=== PATIENT | male | born 1955 | race Caucasian/White ===

== ENCOUNTER 2020-12-28 05:15 | Emergency (ER) | payer MEDICARE, SELFPAY ==
[2020-08-02 10:10] VITALS: BMI 21.3
[2020-12-28 05:16] VITALS: BP 165/89; PULSE 150; RESP 16; TEMP 36.7; O2SAT 92; BMI 21.5
--- NOTE | 2020-12-28 05:19 | CT_ITS ---
STUDY: CT ABDOMEN AND PELVIS WITHOUT CONTRAST REASON FOR EXAM: Male, 65 years old. Kidney Stone RADIATION DOSAGE (If Supplied By Facility): CTDIvol = ( 6.09 ) mGy, DLP = ( 279.88 ) mGycm TECHNIQUE: Transaxial 2.5 mm images were obtained from the dome of the diaphragm to the symphysis pubis without oral contrast, and without intravenous contrast. Sagittal and coronal images were reconstructed. This examination is limited for the evaluation of gastrointestinal, solid organs and vascular structures due to the lack of intravenous and oral contrast. Individualized dose optimization techniques were used for this CT. COMPARISON: None. FINDINGS: There is hyperinflation of lung bases, minimal scarring in the posterior medial right lower lobe. The visualized portions of the heart are within normal limits. Normal liver. Normal gallbladder and extrahepatic biliary system. Normal spleen. Normal pancreas. Normal bilateral adrenal glands. Mild bilateral perirenal stranding, right upper renal pole cortical thinning likely scarring. There is no obstructive uropathy, obstructive renal or ureteral calculi. Normal visualized stomach. Normal small intestine. There are rare colonic diverticula consistent with diverticulosis. The appendix is visualized and appears normal. There is atherosclerosis of the abdominal aorta, greater branches and pelvic arteries without aneurysm or leak. Normal inferior vena cava. Normal retroperitoneum. Minimally indistinct into of the urinary bladder without overt wall thickening, urinary bladder is not completely distended. Urinary bladder. There is enlargement of the prostate gland. There is a left-sided inguinal hernia containing adipose tissue. There is mild concave deformity along the superior endplate L5 L1, T12, T11 of less than 50% without retropulsion of cortex, probable Schmorl''s node along the superior endplate of the lower thoracic spine. No acute fracture lines detected. There is mild demineralization of osseous structures. CT/Abdomen/Pelvis without Cont IMPRESSION: There is no obstructive uropathy, obstructive renal or ureteral calculi. Perirenal stranding is nonspecific and can be seen with previous pathology. Urinary bladder indistinct contour likely secondary to incomplete distention and prostate enlargement. No calculus or focal mass detected on noncontrast imaging. Osteopenia is suspected, correlation with bone mineral density if not previously performed recommended. Right renal cortical thinning, atherosclerosis, degenerative changes, mild loss of vertebral body height, possible osteopenia and rare colonic diverticula felt to be known acute findings. Electronically Signed: Swetha Cat MD at 6:18 EST , Service support ,
--- NOTE | 2020-12-28 05:20 | EKG12_ITS ---
Test Reason : FLANK PAIN Blood Pressure : / mmHG Vent. Rate : 117 BPM Atrial Rate : 117 BPM P-R Int : 188 ms QRS Dur : 070 ms QT Int : 302 ms P-R-T Axes : 075 095 070 degrees QTc Int : 421 ms Sinus tachycardia Rightward axis Borderline ECG Confirmed by ESHA CH, BRAD ([id number]), research editor BLANCO HOLLIS ([id number]) on 01/01/2021 11:02:39 A M Referred By: YON Confirmed By:SHERMAN BALBUENA MD
--- NOTE | 2020-12-28 05:21 | ED.DCSUM_ITS ---
- ER Visit Summary Date of Service: 12/28/20 Chief Complaint: Right flank pain History of Present Illness: The patient is a 65 M who presents with right flank pain. Started yesterday and gradually got worse throughout the evening. He states he could not sleep because of the pain. The pain is sharp and in the right flank area and right lower back. Nothing makes the pain better or worse. He denies any hematuria. No history of kidney stones. He denies any falls or injury. He took no pain medications for this at home. He states that he is currently on Flomax and has been on Flomax for quite a while. He does have a history of very severe COPD and is on home oxygen at 3 L. He denies any new s hortness of breath. No chest pain. Physical Examination: Vital signs reviewed. HEENT exam unremarkable. Heart is tachycardic and regular rhythm without murmurs. Lungs are clear to auscultation. Abdomen is soft and nontender. His back is nontender. There is no CVA tenderness. Extremities reveal no edema. Skin exam normal. Neurologic exam normal. Test Results: EKG is sinus rhythm with a rate of 117. No ST changes. Laboratory studies are unremarkable except for glucose of 114. Urinalysis reveals no evidence of infection. There is 0-5 red blood cells. CAT scan of the abdomen pelvis shows no obstructive uropathy. There is some perirenal stranding which is nonspecific. The bladder has a indistinct contour likely secondary to incomplete distention and prostate enlargement. He does have osteopenia and other chronic findings as well. Emergency Department Course and Treatment: The patient was given morphine and normal saline. He was still complaining of some pain so I did give him a Lidoderm patch to place on this area. This pain could be musculoskeletal in nature. I do not see any urologic causes. He is not retaining urine and he is emptying his bladder as he urinated spontaneously in the emergency department. There are no skin changes and it does not appear to be shingles. At this point I will discharge the patient with Lidoderm patches. He will continue Tylenol at home as well. He will call his doctor today for follow-up Treatment Plan: [] Disposition: Discharge Impression: Right lower back pain This note was generated with [employer] software. It may contain incorrect words, spelling, and punctuation that were not noted in review of the chart prior to signing ED Disposition - Plan for ED Patient: Disposition: Home or Assisted Living Instructions: ED Flank Pain, Uncertain Cause Prescriptions: Lidocaine [Lidoderm Patch] 1 patch TOPICAL DAILY #10 patch Transmission Status: Pending to [facility]/pharmacy #[id number] Referrals: Caroline Tejeda PA [Primary Care Provider] -
[2020-12-28 05:30] LABS: Absolute Lymphocyte Count 1.58 X10^3/uL (0.83-4.51); Basophil# 0.05 X10^3/uL; Basophil% 0.5 % (0-1); Eosinophil# 0.05 X10^3/uL; Eosinophils% 0.5 % (0-5); Hematocrit 41.5 % (40-54); Hemoglobin 13.7 g/dL (13.0-16.5); Lymphocyte # 1.58 X10^3/ul (4.0); Lymphocyte % 16.9 % (19-41); Mean Corpuscular Hgb 32.5 pg (27.0-32.0); Mean Corpuscular Volume 98.6 fL (80-94); Mean Platelet Vol. 8.3 fl (6.2-12.0); Monocyte# 1.61 X10^3/uL; Monocyte% 17.2 % (0-10); NRBC Flagged by Analyzer 0 % (0-5); Neutrophil % 64.4 % (47-70); POSITIVE DIFFERENTIAL YES; Platelet Count 389 K/mm3 (150-450); RBC Distribution Width CV 12.7 % (11.6-14.6); Red Blood Count 4.21 M/mm3 (4.6-6.2); White Blood Count 9.3 K/mm3 (4.4-11.0)
[2020-12-28 05:33] LABS: Differential Indicated SCAN CRITERIA MET
[2020-12-28] MEDS: Ondansetron 4 MG/2 ML Vial IV (05:37)
[2020-12-28] MEDS: Morphine 4 MG/ML Syringe IV (05:38)
[2020-12-28] MEDS: 0.9% Normal Saline 1,000 ML 250 ML IV (05:40)
[2020-12-28 05:45] LABS: Anion Gap 6 (5-15); BUN 11 mg/dL (7-18); BUN/Creat Ratio 13.6 RATIO (10-20); Calcium,Total 9.5 mg/dL (8.5-10.1); Chloride 103 mmol/L (98-107); Creatinine, Serum 0.81 mg/dL (0.70-1.30); EST Glomerular Filtration Rate 101 mL/min (>60); Est Glom Filt Rate - Afr Amer 123 mL/min (>60); Estimated Creatinine Clearance 76.77 ml/min; Glucose 114 mg/dL (74-106); Potassium 3.8 mmol/L (3.5-5.1); Sodium Level 138 mmol/L (136-145)
[2020-12-28 05:48] LABS: Bacteria 0 SEEN /hpf (None Seen); Color, Urine Yellow (Yellow); Glucose, Dipstick Normal (Normal); Ketone-Dipstick 15 mg/dl (Negative); Leukocyte Esterase-Dipstick Negative /ul (Negative); Mucous, Urine 0 SEEN /hpf (<or=2+); Nitrite-Dipstick Negative (Negative); Occult Blood-Urine 50 /ul (Negative); Protein-Dipstick 15 mg/dl (Negative); Squamous Epithelial Cells - UA 0 SEEN /hpf (0-5); Urine Bilirubin Dipstick Negative (Negative); Urine Clarity Clear (Clear); Urine Urobilinogen Normal (Normal); White Blood Cells 0 SEEN /hpf (0-5)
[2020-12-28 06:05] LABS: Red Blood Cells-Urine 0-5 SEEN /hpf (0-5)
[2020-12-28] MEDS: Lidocaine 5% Patch 1 PATCH TOPICAL (06:47)
[2020-12-28 06:50] VITALS: BP 142/91; PULSE 80; RESP 18; O2SAT 96
== END 2020-12-28 06:53 | disposition home or self-care (01) ==
PROVIDERS: Emergency Provider Emergency Medicine; PCP Physician Assistant
DX: M54.5 Low back pain (principal); J44.9 Chronic obstructive pulmonary disease, unspecified; Z99.81 Dependence on supplemental oxygen; Z79.82 Long term (current) use of aspirin
CPT/HCPCS: 74176; 80048; 81001; 85025; 93005; 96374; 96375; 99283; J7030; A4216; J2405

== ENCOUNTER 2022-10-27 11:11 | Inpatient (IN) | payer MEDICARE, MEDICAID, SELFPAY ==
[2022-10-27] VITALS (18 sets, daily range): BP systolic 119–147; BP diastolic 65–90; PULSE 73–143; RESP 18–31; TEMP 35.9–37.3; O2SAT 92–100; BMI 20.1
--- NOTE | 2022-10-27 11:38 | EKG12_ITS ---
Test Reason : SOB Blood Pressure : / mmHG Vent. Rate : 121 BPM Atrial Rate : 000 BPM P-R Int : 000 ms QRS Dur : 070 ms QT Int : 274 ms P-R-T Axes : 000 085 065 degrees QTc Int : 389 ms Sinus rhythm with frequent PAC's Abnormal ECG Confirmed by ANSELMO CH, DIMITRY ([id number]), business editor BLANCO HOLLIS ([id number]) on 10/28/2022 1:56:55 PM Referred By: Confirmed By:DIMITRY BRIONES MD
--- NOTE | 2022-10-27 11:38 | RAD_ITS ---
EXAM: XR CHEST, 1 VIEW CLINICAL INDICATION: chest pain TECHNIQUE: Frontal view of the chest. This report was created using [employer] report generation technology. COMPARISON: XR Chest dated 03/28/2017 FINDINGS: LUNGS AND PLEURAL SPACES: Hyperinflation suggesting emphysema. A 6 cm masslike density noted within the left lung apex consistent with neoplasm. No pneumothorax. No effusion. HEART: Normal heart size. MEDIASTINUM: Left side of the superior mediastinum appears thickened raising possibility of mediastinal lymphadenopathy. BONES/JOINTS: Old right clavicular and rib fractures. SOFT TISSUES: Normal. RAD/Chest 1 View (Portable) IMPRESSION: 6 cm left apical lung mass suggestive of neoplasm. Suspect mediastinal involvement. COPD. Follow-up CT chest recommended. Electronically Signed: Kyree Khan MD at 12:15 EST ,
[2022-10-27 11:45] LABS: Absolute Lymphocyte Count 0.62 X10^3/uL (0.83-4.51); Absolute Neutrophil Count 9.2 X10^3/uL (2.0-7.7); Basophil# 0.02 X10^3/uL; Basophil% 0.2 % (0-1); Eosinophil# 0.03 X10^3/uL; Eosinophils% 0.3 % (0-5); Hematocrit 34.7 % (40-54); Lymphocyte # 0.62 X10^3/ul (0.83-4.51); Lymphocyte % 5.8 % (19-41); Mean Corp Hgb Conc 31.7 g/dL (32-36); Mean Corpuscular Hgb 31.3 pg (27.0-32.0); Mean Corpuscular Volume 98.9 fL (80-94); Mean Platelet Vol. 9.5 fl (6.2-12.0); Monocyte# 0.89 X10^3/uL; Monocyte% 8.3 % (0-10); NRBC Flagged by Analyzer 0 % (0-5); Neutrophil # 9.16 X10^3/uL (2.7-7.7); Neutrophil % 84.9 % (47-70); Platelet Count 363 K/mm3 (150-450); RBC Distribution Width CV 13.2 % (11.6-14.6); RBC Distribution Width SD 46.9 fl (35.1-43.9); Red Blood Count 3.51 M/mm3 (4.6-6.2); White Blood Count 10.8 K/mm3 (4.4-11.0)
--- NOTE | 2022-10-27 11:53 | EDS_ITS ---
HPI History of Present Illness Chief Complaint: Shortness of Breath Narrative Narrative: 67-year-old male presenting with shortness of breath for the last 2 to 3 days. He does state that he has a pulse oximeter at home which is also reading that his heart was racing in the 120s. He has intermittent aching of the chest which is central. No nausea, diaphoresis, lightheadedness with this. He states he does not radiate. He denies fever, chills, cough. He denies body aches. He does admit to a history of COPD. [facility] Medical History Acute exacerbation of chronic obstructive pulmonary disease Acute on chronic respiratory failure with hypoxemia Acute respiratory failure with hypoxemia BPH (benign prostatic hypertrophy) Bronchitis COPD (chronic obstructive pulmonary disease) Cough Dehydration Emphysema lung End stage chronic obstructive pulmonary disease History of alcohol abuse History of tobacco use Hyponatremia Parainfluenza infection Shortness of breath Stage 4 very severe COPD by GOLD classification Throat irritation Tobacco dependence Wheezing Home Medications aspirin 81 mg tablet,delayed release (Adult Low Dose Aspirin) 81 mg PO DAILY 08/02/20 [History Last Taken Unknown] metoprolol tartrate 50 mg tablet (Lopressor) 50 mg PO DAILY 08/02/20 [History Last Taken Unknown] tamsulosin 0.4 mg capsule (Flomax) 0.4 mg PO DAILY 08/02/20 [History Last Taken Unknown] roflumilast 500 mcg tablet (Daliresp) 500 mcg PO DAILY #90 tabs 07/31/21 [Rx Last Taken Unknown] Handicap Placard #1 ea 07/25/22 [Rx Last Taken Unknown] azithromycin 250 mg tablet 250 mg PO .COMPLEX #36 tabs 07/25/22 [Rx Last Taken Unknown] fluticasone furoate 200 mcg-vilanterol 25 mcg/dose inhalation powder (Breo Ellipta) 1 inh inhalation DAILY #3 ea 07/25/22 [Rx Last Taken Unknown] tiotropium bromide 2.5 mcg/actuation mist for inhalation (Spiriva Respimat) 2 puff inhalation QDAY #3 ea 07/25/22 [Rx Last Taken Unknown] albuterol sulfate 90 mcg/actuation aerosol inhaler (Ventolin HFA) 2 puff inhalation Q6H R06.02 J44.1 #18 grams 07/29/22 [Rx Last Taken Unknown] prednisone 10 mg tablet 10 mg PO QDAY #90 tabs 07/30/22 [Rx Last Taken Unknown] albuterol sulfate 1.25 mg/3 mL solution for nebulization 1.25 mg (3 mL) inhalation Q4H #600 mL 08/29/22 [Rx Last Taken Unknown] Allergy/AdvReac Type Severity Reaction Status Date / Time No Known Allergies Allergy Verified 10/27/22 11:15 Family History (Reviewed 07/25/22 @ 09:17 by Delilah Benoit GERIATRIC NURSE PRACTITIONER, GERIATRIC NURSE PRACTITIONER-C) Mother Diabetes Father Lung cancer Surgical History S/P aneurysm repair Social History (Reviewed 07/25/22 @ 09:17 by Delilah Benoit GERIATRIC NURSE PRACTITIONER, GERIATRIC NURSE PRACTITIONER-C) Smoking Status: Former smoker quit date: 10/20/16 pack-years: 43 second hand exposure: Yes alcohol intake: never substance use type: does not use EXAM Physical Exam Const Vital Signs: 10/27/22 11:13 10/27/22 11:15 10/27/22 11:24 Temperature 96.7 F L 99.1 F Temperature Source Temporal Temporal Pulse Rate 74 89 Respiratory Rate 20 H 22 H Respiratory Effort Short of Breath Labored Respiratory Depth Normal Respiratory Pattern Tachypnea Blood Pressure 132/90 H Blood Pressure Mean 104 Pulse Ox 92 100 Oxygen Delivery Method Nasal Cannula Nasal Cannula Nasal Cannula Oxygen Flow Rate (L/min) 3 3 3 10/27/22 11:38 10/27/22 12:18 10/27/22 12:15 Temperature 98.1 F Temperature Source Temporal Pulse Rate 73 98 Respiratory Rate 28 H 28 H Respiratory Effort Respiratory Depth Respiratory Pattern Hyperpnea Blood Pressure 119/81 H Blood Pressure Mean 93 Pulse Ox 99 100 Oxygen Delivery Method Nasal Cannula Nasal Cannula Oxygen Flow Rate (L/min) 3 3 10/27/22 13:00 Temperature 97.9 F Temperature Source Temporal Pulse Rate 98 Respiratory Rate 30 H Respiratory Effort Respiratory Depth Respiratory Pattern Blood Pressure 140/76 H Blood Pressure Mean 97 Pulse Ox 100 Oxygen Delivery Method Nasal Cannula Oxygen Flow Rate (L/min) 3 MDM MDM MDM Narrative Medical decision making narrative: Patient presenting with chest pain which is intermittent. He describes as an ache. He states that at times it will last about 10 minutes. He also notes that his heart rate has been very fast at home. He states been in the 120s. He does complain of some shortness of breath and was wheezing on examination. He was given Solu-Medrol and breathing treatments. EKG was obtained which on my interpretation shows atrial fibrillation with a ventricular rate of 121 bpm. He was given 20 mg of Cardizem IV. after discussing this with the patient it does not appear he has had this before. The patient is actually feeling improved after treatments and Cardizem. Patient's heart rate is now in the 70s. He is not on any anticoagulation. CBC shows a normal white blood cell count 10.8. Hemoglobin 11.0. Platelets 363. Renal function electrolytes within normal limits. Glucose slightly elevated at 144 without anion gap. High-sensitivity troponin is 13. Chest x-ray on my interpretation shows concern for left upper lobe mass. The radiologist represents and agrees and also suspects mediastinal involvement. Feel the patient will need to stay for new onset atrial fibrillation. I did speak with the hospitalist and since his D-dimer is negative she would like to have a noncontrasted CT of his chest. This was ordered and is pending. She will be followed up by hospitalist. Impression: 1. 6 severe left upper lobe mass 2. COPD exacerbation 3. New onset atrial fibrillation 4. Chest pain Lab Data Attestation: I reviewed the patient's lab results. Labs: Laboratory Results - last 24 hr 10/27/22 10/27/22 10/27/22 11:35 11:35 11:35 WBC 10.8 RBC 3.51 L Hgb 11.0 L Hct 34.7 L MCV 98.9 H MCH 31.3 MCHC 31.7 L RDW Std Deviation 46.9 H RDW Coeff of Fe 13.2 Plt Count 363 MPV 9.5 Immature Gran % (Auto) 0.500 Neut % (Auto) 84.9 H Lymph % (Auto) 5.8 L [place] % (Auto) 8.3 Eos % (Auto) 0.3 Baso % (Auto) 0.2 Absolute Neuts (auto) 9.2 H Absolute Lymphs (auto) 0.62 L Nucleated RBC % 0 D-Dimer Quant (PE/DVT) 0.37 Sodium 139 Potassium 3.8 Chloride 104 Carbon Dioxide 31.0 Anion Gap 4 L BUN 13 Creatinine 0.80 Estim Creat Clear Calc 70.87 Est GFR (MDRD) Af Amer 124 Est GFR (MDRD) Non-Af 102 BUN/Creatinine Ratio 16.2 Glucose 144 H Calcium 9.5 Troponin I High Sens 13 Radiography Diagnostic Testing: Clinical Impression(s) from Imaging Studies Chest X-Ray 10/27/22 11:38 IMPRESSION: 6 cm left apical lung mass suggestive of neoplasm. Suspect mediastinal involvement. COPD. Follow-up CT chest recommended. Electronically Signed: Kyree Khan MD at 12:15 EST , Discharge Plan Triage Chief Complaint: Shortness of Breath ED Provider: Diego Owen Dx/Rx/DC Orders Prescriptions: No Action metoprolol tartrate [Lopressor] 50 mg tablet 50 mg PO DAILY tamsulosin [Flomax] 0.4 mg capsule 0.4 mg PO DAILY aspirin [Adult Low Dose Aspirin] 81 mg tablet,delayed release (DR/EC) 81 mg PO DAILY Daliresp 500 mcg tablet 500 mcg PO DAILY Qty: 90 3RF (DME) Handicap Placard Qty: 1 0RF Rx Instructions: expires 07/25/2027 Breo Ellipta 200-25 mcg/dose blister with device 1 inh inhalation DAILY Qty: 3 3RF Spiriva Respimat 2.5 mcg/actuation mist 2 puff INHALATION QDAY Qty: 3 3RF azithromycin 250 mg tablet 250 mg PO .COMPLEX Qty: 36 6RF Rx Instructions: 250 mg PO three times weekly, Fri albuterol sulfate [Ventolin HFA] 90 mcg/actuation HFA aerosol inhaler 2 puff INHALATION Q6H Qty: 18 6RF Rx Instructions: R06.02 J44.1 prednisone 10 mg tablet 10 mg PO QDAY Qty: 90 3RF albuterol sulfate 1.25 mg/3 mL solution for nebulization 1.25 mg inhalation Q4H Qty: 600 3RF Rx Instructions: J44.9 COPD R06.02 Shortness of Breath Primary Care Provider: Caroline Tejeda Referrals: Caroline Tejeda PA [Primary Care Provider] -
[2022-10-27 12:04] LABS: Anion Gap 4 (5-15); BUN 13 mg/dL (7-18); BUN/Creat Ratio 16.2 RATIO (10-20); Calcium,Total 9.5 mg/dL (8.5-10.1); Chloride 104 mmol/L (98-107); EST Glomerular Filtration Rate 102 mL/min (>60); Est Glom Filt Rate - Afr Amer 124 mL/min (>60); Estimated Creatinine Clearance 70.87 ml/min; Glucose 144 mg/dL (74-106); Potassium 3.8 mmol/L (3.5-5.1); Sodium Level 139 mmol/L (136-145); Troponin-I HS (w/2H Reflex) 13 pg/mL (3.0-78.0)
[2022-10-27] MEDS: Albuterol 2.5 MG/3 ML VIAL.NEB. INHALATION (12:19)
[2022-10-27] MEDS: Ipratropium/Albuterol Sulfate 3 ML AMPUL.NEB INHALATION ×2 (12:19→19:46)
[2022-10-27 12:48] LABS: D-Dimer Quantitative (DVT/PE) 0.37 FEU/ug/m (0.27-0.49)
[2022-10-27] MEDS: dilTIAZem 25 MG/5 ML Vial 20 MG IV BOLUS (12:56)
[2022-10-27] MEDS: MethylPREDNISolone 125 MG/2 ML Vial IV (12:56)
[2022-10-27 13:42] LABS: Reflex Troponin-HS? (from REC) Y
--- NOTE | 2022-10-27 13:44 | CT_ITS ---
EXAM: CT CHEST WITHOUT INTRAVENOUS CONTRAST CLINICAL INDICATION: chest pain TECHNIQUE: Helically acquired images were obtained of the chest without intravenous contrast. This CT exam was performed using one or more of the following dose reduction techniques: automated exposure control, adjustment of the mA and/or kV according to patient size, and/or use of iterative reconstruction technique. This report was created using [employer] report generation technology. COMPARISON: Chest radiograph 10/27/2022 FINDINGS: LUNGS AND PLEURAL SPACES: 5.0 x 4.2 cm mass within the anteromedial portion of the left upper lobe with spiculated borders consistent with primary lung neoplasm. Diffuse centrilobular pulmonary emphysema. No pleural effusion or thickening. No pneumothorax. HEART: Normal heart size. Moderate coronary artery calcification. Small pericardial effusion/thickening noted. MEDIASTINUM: No mediastinal or hilar lymphadenopathy. Esophagus is unremarkable. No hiatal hernia. THYROID: Normal. No thyroid lesions. BONES/JOINTS: Normal. No suspicious lytic or blastic abnormality. VASCULATURE: Normal. Thoracic aorta is non-dilated. CT/Chest without Contrast IMPRESSION: 1. 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 2. No evidence of metastatic disease. 3. Prominent diffuse pulmonary emphysema. Electronically Signed: Kyree Khan MD at 14:36 EST ,
--- NOTE | 2022-10-27 14:33 | HP.PCM.HOS_ITS ---
HPI - General General Date of Admission: 10/27/22 Date of Service: 10/27/22 Chief Complaint: Shortness of breath/tachycardia HPI Narrative PAOLO JAUREGUI, is a 67 M who presented to the emergency department at [facility] on 10/27/2022 complaining of shortness of breath. Patient states he had increased shortness of breath for about 2 to 3 days and he also complained of feeling like he had mucous plugging in his trachea that was preventing him from breathing well. He has a pulse oximeter at home and checked his pulse ox and noted that his heart was racing and that 120s. He complained of intermittent aching in his chest which was central in nature. He had no nausea, vomiting, diaphoresis, lightheadedness or radiation of symptoms. He denies fever, chills, cough other than his chronic cough related to his COPD. Patient does wear 3 L of oxygen at baseline. He follows with Dr. Hernández from [place] as an outpatient. Vital signs at the time of presentation demonstrated a temperature of 99.1, heart rate 89, blood pressure was 132/90, respiratory rate was 22 and pulse ox was 100% on 3 L nasal cannula. His CBC shows a mild anemia with a hemoglobin of 11 but was otherwise unremarkable other than a left shift with an 84.9% neutrophilia. His D-dimer was normal. Chemistry panel was unremarkable. Troponin was 13 with a delta of 13. EKG showed atrial fibrillation with a rapid rate, normal intervals, and no ST-T wave changes consistent with acute ischemia. Chest x-ray was performed and showed a 6 cm left apical lung mass that was suggestive of neoplasm with suspected mediastinal involvement. We obtained a CT of his chest which demonstrated a 5.0 x 4.2 cm left upper lobe lung mass with spiculated borders consistent with a primary lung carcinoma, no evidence of metastatic disease and prominent diffuse pulmonary emphysematous changes. He did not have any mediastinal or hilar lymphadenopathy. In the emergency department he was given Cardizem 20 mg x 1 dose and his heart rate did improve. [facility]LY [facility] Medical History Acute exacerbation of chronic obstructive pulmonary disease Acute on chronic respiratory failure with hypoxemia Acute respiratory failure with hypoxemia BPH (benign prostatic hypertrophy) Bronchitis COPD (chronic obstructive pulmonary disease) Cough Dehydration Emphysema lung End stage chronic obstructive pulmonary disease History of alcohol abuse History of tobacco use Hyponatremia Parainfluenza infection Shortness of breath Stage 4 very severe COPD by GOLD classification Throat irritation Tobacco dependence Wheezing Home Medications aspirin 81 mg tablet,delayed release (Adult Low Dose Aspirin) 81 mg PO DAILY 08/02/20 [History Last Taken Unknown] metoprolol tartrate 50 mg tablet (Lopressor) 50 mg PO DAILY 08/02/20 [History Last Taken Unknown] tamsulosin 0.4 mg capsule (Flomax) 0.4 mg PO DAILY 08/02/20 [History Last Taken Unknown] roflumilast 500 mcg tablet (Daliresp) 500 mcg PO DAILY #90 tabs 07/31/21 [Rx Last Taken Unknown] Handicap Placard #1 ea 07/25/22 [Rx Last Taken Unknown] azithromycin 250 mg tablet 250 mg PO .COMPLEX #36 tabs 07/25/22 [Rx Last Taken Unknown] fluticasone furoate 200 mcg-vilanterol 25 mcg/dose inhalation powder (Breo Ellipta) 1 inh inhalation DAILY #3 ea 07/25/22 [Rx Last Taken Unknown] tiotropium bromide 2.5 mcg/actuation mist for inhalation (Spiriva Respimat) 2 puff inhalation QDAY #3 ea 07/25/22 [Rx Last Taken Unknown] albuterol sulfate 90 mcg/actuation aerosol inhaler (Ventolin HFA) 2 puff inhalation Q6H R06.02 J44.1 #18 grams 07/29/22 [Rx Last Taken Unknown] prednisone 10 mg tablet 10 mg PO QDAY #90 tabs 07/30/22 [Rx Last Taken Unknown] albuterol sulfate 1.25 mg/3 mL solution for nebulization 1.25 mg (3 mL) inhalation Q4H #600 mL 08/29/22 [Rx Last Taken Unknown] Allergy/AdvReac Type Severity Reaction Status Date / Time No Known Allergies Allergy Verified 10/27/22 11:15 Family History Mother Diabetes Father Lung cancer Surgical History S/P aneurysm repair Social History Smoking Status: Former smoker quit date: 10/20/16 pack-years: 43 second hand exposure: Yes alcohol intake: never substance use type: does not use ROS Constitutional Constitutional: Denies anorexia, change in weight, chills, fatigue, fever(s), malaise, night sweats, weakness or other Eyes Eyes: Denies blurry vision, change in eye color, change in vision, discharge fro m eye(s), double vision, erythema, eye pain, loss of vision or other ENT HEENT: Denies abnormal hearing, dysphagia, ear pain, epistaxis, headache(s), h earing loss, nasal congestion, nasal discharge, post nasal drip, sinus pressure, sore throat or other Cardiovascular Cardiovascular: Reports chest pain and dyspnea on exertion; Denies claudication, edema, lightheadedness, orthopnea, palpitations, paroxysmal nocturnal dyspnea, rapid heart rate, syncope or other Respiratory/Chest Respiratory/Chest: Reports cough, dyspnea, shortness of breath at rest and shortness of breath with exertion; Denies excessive phlegm production, hemoptysis, productive cough, wheezing or other Gastrointestinal Gastrointestinal: Denies abdominal pain, coffee ground emesis, constipation, diarrhea, dyspepsia, hematemesis, hematochezia, loose stools, melena, nausea, vomiting or other Genitourinary Genitourinary: Denies burning urination, difficulty urinating, dysuria, anushka turia, nocturia, urinary frequency, urinary hesitancy, urinary incontinence, urinary urgency or other Musculoskeletal Musculoskeletal: Denies arthralgias, back pain, joint pain, joint stiffness, joint swelling, myalgias, neck pain or other Neurologic Neurologic: Denies abnormal gait, abnormal speech, confusion, disequilibrium, dizziness, focal weakness, headache(s), numbness, paresthesias, seizure-like activity, seizures, syncope, tingling, tremor(s) or other Psychiatric Psychiatric: Denies anxiety, depression, homicidal ideation, suicidal ideation or other Endocrine Endocrinology: Denies change in body appearance, cold intolerance, excessive sweating, heat intolerance, polydipsia, polyuria or other Hematologic/Lymphatic Hematologic/Lymphatic: Denies anemia, easy bleeding, easy bruising, lymphadenopathy or other Allergic/Immunologic Allergic/Immunologic: Denies rhinitis, hives, eczemia, asthma or other Vital Signs Vital Signs Vital Signs: 10/27/22 11:13 10/27/22 11:15 10/27/22 11:24 Temperature 96.7 F L 99.1 F Temperature Source Temporal Temporal Pulse Rate 74 89 Respiratory Rate 20 H 22 H Respiratory Effort Short of Breath Labored Respiratory Depth Normal Respiratory Pattern Tachypnea Blood Pressure 132/90 H Blood Pressure Mean 104 Pulse Ox 92 100 Oxygen Delivery Method Nasal Cannula Nasal Cannula Nasal Cannula Oxygen Flow Rate (L/min) 3 3 3 10/27/22 11:38 10/27/22 12:18 10/27/22 12:15 Temperature 98.1 F Temperature Source Temporal Pulse Rate 73 98 Respiratory Rate 28 H 28 H Respiratory Effort Respiratory Depth Respiratory Pattern Hyperpnea Blood Pressure 119/81 H Blood Pressure Mean 93 Pulse Ox 99 100 Oxygen Delivery Method Nasal Cannula Nasal Cannula Oxygen Flow Rate (L/min) 3 3 10/27/22 13:00 10/27/22 14:00 Temperature 97.9 F 97.8 F Temperature Source Temporal Temporal Pulse Rate 98 97 Respiratory Rate 30 H 27 H Respiratory Effort Respiratory Depth Respiratory Pattern Blood Pressure 140/76 H 141/90 H Blood Pressure Mean 97 107 Pulse Ox 100 99 Oxygen Delivery Method Nasal Cannula Nasal Cannula Oxygen Flow Rate (L/min) 3 3 Weight Weight: 56.699 kg Body Mass Index (BMI) 20.1 Physical Exam Const alert, oriented x3 and no apparent distress Constitutional Narrative: Thin, upper middle-aged, white male, sitting up in bed, appears older than stated age, appears comfortable at this time and nontoxic General Appearance: cooperative HEENT normocephalic, head/scalp atraumatic and moist oral mucous membranes HEENT Narrative: Mild hearing loss, dentition is poor, Mallampati is 2 Eyes PERRL, EOMs intact bilaterally and conjunctivae normal Eyes Narrative: No scleral icterus Neck no lymphadenopathy, supple, no JVD and no carotid bruits Neck Narrative: Trachea midline, no thyroid enlargement Resp normal respiratory effort, no retractions, no use of accessory muscles and clear to auscultation bilaterally Resp Narrative: Severely diminished diffusely but no adventitious sounds Auscultation: Negative for crackles, rhonchi or wheezes Cardio regular rate, S1 normal heart sound, S2 normal heart sound, no murmurs, no rub, no gallops and no clicks Cardio Narrative: Irregularly irregular rhythm but rate is currently controlled GI normal to inspection, nondistended, normoactive bowel sounds, soft to palpation and non-tender Extremity no clubbing, cyanosis or edema Extremity Narrative: 2+ pedal pulses, 2+ radial pulses Skin no rashes or lesions noted, no wounds, skin turgor normal, no jaundice, no petechiae and no mottling Neuro oriented x3, CN's II-XII intact bilaterally, moves all extremities and no focal motor deficits Speech: speech normal Psych affect normal Psych Narrative: Seems mildly anxious, eye contact is good, perseverating on steroids Results Lab / Micro Data Attestation: I reviewed the patient's lab results. Result Diagrams: 10/27/22 11:35 10/27/22 11:35 Labs: Laboratory Results - last 24 hr 10/27/22 11:35: WBC 10.8, RBC 3.51 L, Hgb 11.0 L, Hct 34.7 L, MCV 98.9 H, MCH 31.3, MCHC 31.7 L, RDW Std Deviation 46.9 H, RDW Coeff of Fe 13.2, Plt Count 363, MPV 9.5, Immature Gran % (Auto) 0.500, Neut % (Auto) 84.9 H, Lymph % (Auto) 5.8 L, Wayne % (Auto) 8.3, Eos % (Auto) 0.3, Baso % (Auto) 0.2, Absolute Neuts (auto) 9.2 H, Absolute Lymphs (auto) 0.62 L, Nucleated RBC % 0 10/27/22 11:35: Sodium 139, Potassium 3.8, Chloride 104, Carbon Dioxide 31.0, Anion Gap 4 L, BUN 13, Creatinine 0.80, Estim Creat Clear Calc 70.87, Est GFR (MDRD) Af Amer 124, Est GFR (MDRD) Non-Af 102, BUN/Creatinine Ratio 16.2, Glucose 144 H, Calcium 9.5, Troponin I High Sens 13 10/27/22 11:35: D-Dimer Quant (PE/DVT) 0.37 Radiology Impression Chest X-Ray 10/27/22 11:38 IMPRESSION: 6 cm left apical lung mass suggestive of neoplasm. Suspect mediastinal involvement. COPD. Follow-up CT chest recommended. Electronically Signed: Kyree Khan MD at 12:15 EST , Assessment & Plan Assessment/Plan (1) Chronic hypoxemic respiratory failure: (2) Atrial fibrillation with RVR: (3) Mass of left lung: PLAN: Plan New onset atrial fibrillation with RVR -Patient was given 1 dose of IV Cardizem in the emergency department which did slow down his rate -Patient is already on beta-laurie at home we will increase from 50 twice daily to 75 twice daily and monitor heart rate on telemetry -Hold off on full anticoagulation at this time as patient needs a CT-guided biopsy of the lung mass -Would start Eliquis after biopsy is completed -Check TSH -Check echocardiogram Left upper lobe lung mass -CT-guided biopsy tomorrow -Check a.m. coags -Hold full anticoagulation until this can be completed -Pulmonary medicine consultation Chronic hypoxic respiratory failure secondary to Gold stage 4 COPD -Patient is on 3 L supplemental nasal cannula at baseline -Patient is complaining of some increased mucus production -Scheduled and as needed nebulizers -I-S/Pep therapy -Steroids IV 40 every 8 -Continue home inhalers -Consult pulmonary medicine BPH -Continue home Flomax Hypertension -Continue home beta-laurie but increase dose to 75 mg daily with A. fib History of alcohol abuse -Remote History of tobacco abuse -Remote -Encourage ongoing cessation DVT prophylaxis -Subcu heparin until full anticoagulation for atrial fibrillation can be initiated after CT-guided biopsy CODE STATUS -Full code as discussed in the emergency department prior to admission Charges/Coding Visit Charges Inpatient E&M: 79183 Init Hosp L3
[2022-10-27 15:02] LABS: Troponin-I HS 13 pg/mL (3.0-78.0)
--- NOTE | 2022-10-27 16:24 | CPS ---
Patient is refusing PEP and IS, he states that his family doctor told him he doesn't have to do them.
[2022-10-27 18:49] LABS: Troponin-I HS 13 pg/mL (3.0-78.0)
--- NOTE | 2022-10-27 19:58 | CPS ---
Pt declined Pep
[2022-10-27] MEDS: 0.9% Saline Lock 10 ML Syringe IV (23:39)
[2022-10-27] MEDS: Heparin Injection (Vial) 5,000 UNIT/ML VIAL 5000 UNIT SC (23:39)
[2022-10-28] VITALS (39 sets, daily range): BP systolic 95–151; BP diastolic 60–108; PULSE 71–126; RESP 13–32; TEMP 36.4–36.8; O2SAT 95–100; BMI 19.1
--- NOTE | 2022-10-28 | ASPIGT_PTH ---
PATIENT: PAOLO JAUREGUI LOC: [facility] U#:[id number] AGE/SX: 67/M ROOM: [facility] RE10/27/[address]: Dr. Aguilar Linder MD : 1955 BED: 1 DIS: 10/29/2022 SPEC #: [id number] RECD: 10/28/22 13:46 STATUS: ASHLEY REQ #: [id number] TONE: 10/28/22 00:[address]: Aguilar Linder DEPT: SURGICAL PATHOLOGY RECD BY: Yair Guevara ENTERED: 10/28/22 13:46 SP TYPE: ASP RAD OTHR DR: MD Dr. Luis yLle, MD Dr. Briseyda Blount Dr., MD Dr. Adrien Marx Dr., MD Christina Muller, EXPRESSIVE MUSIC THERAPIST-C OFELIA Medina Tissues: Lung, NOS Procedures: FNA Specimen Adequacy Special Stain Group II Surgery Specimen Level IV Imprint (control) HEADER OPERATION: Left lung mass, CT-guided core biopsy PRE-OP DIAGNOSIS: Left lung mass TISSUE SUBMITTED: Left lung mass 20-gauge x4 MICROSCOPIC DIAGNOSIS Left lung mass, CT-guided core biopsy: Non-small cell carcinoma, favor squamous cell carcinoma. See comment. SJ:rg 10/29/2022 COMMENT The specimen is evaluated at the time of biopsy by Dr. Mcdermott. Immediate Evaluation = Malignant cells present derived from non-small cell carcinoma. Immunohistochemistry ([id number]) supports the above diagnosis. Molecular studies on the tumor can be performed if clinically indicated. Please notify the laboratory if they are needed. Case has been reviewed in consultation with Dr. Ward who concurs with the above diagnosis. IDC:AM MICROSCOPIC DESCRIPTION Slides are reviewed. GROSS DESCRIPTION Received in fixative is one container labeled with the patient's name and designated left lung. The specimen consists of multiple irregular fragments of heath soft tissue that in aggregate measure 1.5 x 0.2 x 0.1 cm. The specimen is totally submitted in one cassette. Two touch imprints are prepared at the time of core biopsy. / BRIAN:enoc 10/28/2022 TC:0 CPT: 49920, 67746
--- NOTE | 2022-10-28 | IMM_PTH ---
PATIENT: PAOLO JAUREGUI LOC: [facility] U#:[id number] AGE/SX: 67/M ROOM: [facility] RE10/27/[address]: Dr. Aguilar Linder MD : 1955 BED: 1 DIS: 10/29/2022 SPEC #: [id number] RECD: 10/28/22 14:52 STATUS: SOUT REQ #: [id number] TONE: 10/28/22 00:[address]: Aguilar Linder DEPT: IMMUNOHISTOCHEMISTRY RECD BY: Caity Mckoy ENTERED: 10/28/22 14:53 SP TYPE: IMMUNO OTHR DR: MD Dr. Luis Lyle, MD Dr. Briseyda Blount Dr., MD Dr. Adrien Marx Dr., MD Christina Muller, TRIMMING MACHINE OPERATOR-C OFELIA Medina Tissues: Left lung, NOS Procedures: RCC (add) NAPSIN A (add) CK20 (add) CK5-6 (add) CK7 (add) CK8 (add) HEP PAR (add) TTF1 (add) Pankeratin (initial) P40 (add) PSAP (add) PHYSICIAN & [place] [id number] SPECIMEN INFORMATION: Tissue Source: Left lung mass Clinical Info: Left lung mass Specimen Number: [id number] CPT code: 08774, 97673 x10 METHODOLOGY: Deparaffinized sections of prefer/formalin-fixed tissue or PAP/DQ stained slides are incubated with monoclonal/polyclonal antibodies/oligonucleotide probes. Localization is made via biotin free immunoperoxidase method. Appropriate controls are performed and reacted as expected. Results on target cell population are indicated in the following table: RESULTS: ANTIBODY / CLONE RESULT AE1-3 (AE1/AE3/PCK26) positive CK7 (OV-TL12/30) negative CK8 (21ibmbK31) positive, weak CK20 (KS20.8) negative TTF-1 (8G7G3/1) negative Napsin A (Rabbit Polyclonal) negative HepPar (OCh1E5) negative RCC (PN-15) negative PSAP (PASE/4LJ) negative CK5-6 (D5 & 1684) positive P40 (BC28) positive These tests were developed and their performance characteristics determined by [facility]. They may not have been cleared or approved by the U.S. Food and Drug Administration. The FDA has determined that such clearance or approval is not necessary. The above immunohistochemical/dualISH markers are ordered and reviewed by the Pathologist. INTERPRETATION: Left lung mass, CT-guided core biopsy: Non-small cell carcinoma, favor squamous cell carcinoma. SJ:enoc 10/30/2022
--- NOTE | 2022-10-28 05:55 | ECHOD_ITS ---
Reason For Study: Afib/Flutter Procedure This was a 2D Doppler, Color Flow transthoracic echocardiogram. Technically difficult study due to arrhythmia and patient not being able to hold still. Exam performed portable in patient room. Left Ventricle Normal LV size. Left ventricular systolic function is normal. The estimated ejection fraction is 60 %. No regional wall motion abnormalities noted. Right Ventricle Normal RV size. Normal systolic function. Atria Normal left atrium. Normal right atrium. Mitral Valve Normal mitral valve. Tricuspid Valve Normal tricuspid valve. Aortic Valve Trisinus/trileaflet aortic valve. Pulmonic Valve Normal pulmonic valve. Great Vessels Normal aortic root. The pulmonary artery is normal size. Normal inferior vena cava. Pericardium/Pleural No pericardial effusion. MMode/2D Measurements & Calculations LVIDd: 4.3 cm IVSd: 1.1 cm LA dimension: 3.7 cm LVIDs: 3.1 cm LVPWd: 0.92 cm RVDd: 3.4 cm FS: 27.2 % LAV(MOD-sp4): 37.5 ml LA A4 area: 16.1 cm2 RA A4 area: 14.4 cm2 Doppler Measurements & Calculations MV E max mckenna: 86.6 cm/sec MV V2 max: 106.7 cm/sec Ao V2 max: 97.6 cm/sec MV max P.6 mmHg Ao max P.8 mmHg MV V2 mean: 58.8 cm/sec MV mean P.7 mmHg MV V2 VTI: 27.5 cm LV V1 max: 85.2 cm/sec PA V2 max: 84.0 cm/sec LV V1 max P.9 mmHg ECHO/Echo Complete Interpretation Summary Normal LV size. Left ventricular systolic function is normal. The estimated ejection fraction is 60 %. Compared to previous study, the left ventricular systolic function is the same. . Ordering Physician: Briseyda Allan Performed By: Nathan Xiong RCS
--- NOTE | 2022-10-28 05:55 | EKG12_ITS ---
Test Reason : AM EKG Blood Pressure : / mmHG Vent. Rate : 090 BPM Atrial Rate : 090 BPM P-R Int : 146 ms QRS Dur : 074 ms QT Int : 354 ms P-R-T Axes : 072 079 076 degrees QTc Int : 433 ms Normal sinus rhythm Normal ECG When compared with ECG of 27-OCT-2022 11:43, MANUAL COMPARISON REQUIRED, DATA IS UNCONFIRMED Confirmed by ANSELMO CH, DIMITRY ([id number]), make up editor BLANCO HOLLIS ([id number]) on 10/29/2022 8:40:54 AM Referred By: Confirmed By:DIMITRY BRIONES MD
[2022-10-28 06:42] LABS: Absolute Lymphocyte Count 0.56 X10^3/uL (0.83-4.51); Absolute Neutrophil Count 4.8 X10^3/uL (2.0-7.7); Hematocrit 31.7 % (40-54); Lymphocyte # 0.56 X10^3/ul (0.83-4.51); Lymphocyte % 9.5 % (19-41); Mean Corp Hgb Conc 31.5 g/dL (32-36); Mean Corpuscular Hgb 31.3 pg (27.0-32.0); Mean Corpuscular Volume 99.4 fL (80-94); Mean Platelet Vol. 9.2 fl (6.2-12.0); Monocyte# 0.53 X10^3/uL; NRBC Flagged by Analyzer 0 % (0-5); Neutrophil # 4.79 X10^3/uL (2.7-7.7); POSITIVE DIFFERENTIAL YES; Platelet Count 321 K/mm3 (150-450); RBC Distribution Width CV 13.2 % (11.6-14.6); RBC Distribution Width SD 48.1 fl (35.1-43.9); Red Blood Count 3.19 M/mm3 (4.6-6.2); White Blood Count 5.9 K/mm3 (4.4-11.0)
[2022-10-28 06:46] LABS: Differential Indicated SCAN CRITERIA MET
[2022-10-28] MEDS: 0.9% Saline Lock 10 ML Syringe IV ×3 (06:47→22:32)
[2022-10-28 06:56] LABS: International Normalized Ratio 1.2
[2022-10-28 06:57] LABS: Partial Thromboplast Time 26.9 Seconds (24.1-36.2)
[2022-10-28 07:13] LABS: ALB/GLOB Ratio 0.6 RATIO (0.9-2.4); AST(SGOT) 9 U/L (15-37); Alanine Aminotransfer ALT/SGPT 18 U/L (16-61); Albumin, Serum 2.9 g/dL (3.2-5.0); Alkaline Phosphatase 57 U/L (45-117); Anion Gap 7 (5-15); BUN 17 mg/dL (7-18); BUN/Creat Ratio 21.7 RATIO (10-20); Calcium,Total 9.3 mg/dL (8.5-10.1); Chloride 103 mmol/L (98-107); Creatinine, Serum 0.78 mg/dL (0.70-1.30); EST Glomerular Filtration Rate 105 mL/min (>60); Est Glom Filt Rate - Afr Amer 126 mL/min (>60); Globulin 4.5 g/dL (2.2-4.2); Glucose 133 mg/dL (74-106); Magnesium 2.2 mg/dL (1.6-2.6); Phosphorus 3.1 mg/dL (2.5-4.9); Protein, Total 7.4 g/dL (6.4-8.2); Sodium Level 138 mmol/L (136-145); Thyroid Stim Hormone (TSH) 0.11 uIU/mL (0.358-3.74)
[2022-10-28] MEDS: Ipratropium/Albuterol Sulfate 3 ML AMPUL.NEB INHALATION ×3 (07:17→19:56)
[2022-10-28] MEDS: Metoprolol Tartrate 50 MG Tablet 75 MG PO ×2 (08:50→22:29)
[2022-10-28] MEDS: Azithromycin 250 MG Tablet PO (08:50)
[2022-10-28] MEDS: Tamsulosin HCl 0.4 MG Capsule PO (08:50)
[2022-10-28 09:17] LABS: Differential Comment SCANNED
--- NOTE | 2022-10-28 11:02 | NURSING ---
Pt off floor at this time for procedure
[2022-10-28] MEDS: Midazolam 2 MG/2 ML Syringe IV (11:26)
[2022-10-28] MEDS: fentaNYL 100 MCG/2 ML Ampul IV (11:28)
[2022-10-28] MEDS: Lidocaine 1% (20 ml mdv) 20 ML Vial INFILT (11:35)
--- NOTE | 2022-10-28 11:50 | RAD_ITS ---
STUDY: X-RAY CHEST REASON FOR EXAM: Male, 67 years old. Pneumothorax -- Immediately post lung biopsy TECHNIQUE: AP inspiration and expiration views. COMPARISON: Comparison is made with prior study dated 10/27/2022. FINDINGS: Two-hour post left lung biopsy. No evidence of pneumothorax. RAD/Chest Insp/Exp 2 View IMPRESSION: No evidence of pneumothorax on the immediate post left lung biopsy radiographs. Electronically Signed: Arun Alexandre MD at 12:33 EST ,
--- NOTE | 2022-10-28 11:58 | EX.PCM.CONCC ---
Assessment & Plan Assessment/Plan (1) Mass of left lung: PLAN: Plan RECOMMENDATIONS: 1. Supplemental oxygen as tolerated to maintain saturations at or above 90%. 2. Continue empiric antimicrobials. 3. Continue scheduled bronchodilators and IV steroids. 4. Encourage incentive spirometer use and mobilize patient as tolerated. 5. Outpatient pulmonary follow-up to review the results of his lung biopsy. IMPRESSIONS: 1. 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 He is already on maximum outpatient therapy for his underlying COPD, but does have a history of frequent exacerbations. I agree with continuing scheduled bronchodilators and IV steroids. The patient remains on azithromycin, per his home regimen. The patient is maintaining appropriate oxygen saturations on his baseline requirement. I do anticipate that he can likely be discharged home in the next 24 hours. 2. Lung mass CT imaging of the chest performed in the emergency department demonstrated a left apical lung mass, for which the patient underwent CT-guided lung biopsy today. These findings are certainly concerning for an underlying primary lung cancer. The patient can follow-up in the pulmonary medicine clinic after discharge to review the results of his lung biopsy. 3. Chronic hypoxemic respiratory failure Continue 3 L/min of supplemental oxygen, per home regimen. This note was generated with [employer] dictation software. It may contain incorrect words, spelling, and punctuation that were not noted in checking the note before signing. HPI Consult Data Date of Consult: 10/29/22 HPI Narrative Reason for Consultation: Lung mass HPI Narrative: The patient is a 67-year-old male, with a history as outlined below, who presented to the emergency department on October 27 with progressive shortness of breath and tachycardia. The patient has an established diagnosis of COPD with a history of recurrent hospital admissions for breathing related issues.? He also has chronic hypoxemic respiratory failure with a baseline 3 L/min supplemental oxygen requirement.? He is currently being maintained on a triple therapy inhaler regimen.? The patient does have extensive prior smoking history, but quit completely in December 2016.? The patient does currently utilize a trilogy noninvasive ventilator in his home environment. Pulmonary function test from February 2017 demonstrated the presence of a partially reversible very severe large airways obstructive ventilatory defect with associated air trapping and decrease in diffusing capacity. Surface echocardiogram dated December 2016 showed normal LV size and function with an ejection fraction of 65%.? Right ventricular systolic pressure was unable to be estimated. The patient remains compliant with the use of azithromycin 3 times weekly. On presentation to the emergency department, the patient was noted to be afebrile and hemodynamically stable. He was maintaining appropriate oxygen saturations on 3 L/min via nasal cannula. Laboratory evaluation revealed no evidence of a leukocytosis. Chemistry profile was unrevealing. Troponin was negative. Sputum culture was sent. 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 Initial chest x-ray demonstrated findings concerning for a left apical lung mass. This was confirmed on a follow-up chest CT, with evidence of a left upper lobe 5 x 4 cm mass with spiculated borders. In the emergency department, the patient was also noted to be in new onset atrial fibrillation with RVR. He was placed on scheduled bronchodilators and IV steroids. The patient was admitted to the hospital for further management. [facility] Medical History Acute exacerbation of chronic obstructive pulmonary disease Acute on chronic respiratory failure with hypoxemia Acute respiratory failure with hypoxemia BPH (benign prostatic hypertrophy) Bronchitis COPD (chronic obstructive pulmonary disease) Cough Dehydration Emphysema lung End stage chronic obstructive pulmonary disease History of alcohol abuse History of tobacco use Hyponatremia Parainfluenza infection Shortness of breath Stage 4 very severe COPD by GOLD classification Throat irritation Tobacco dependence Wheezing Home Medications tamsulosin 0.4 mg capsule (Flomax) 0.4 mg PO DAILY prostate 08/02/20 [History Last Taken Unknown] roflumilast 500 mcg tablet (Daliresp) 500 mcg PO DAILY #90 tabs 07/31/21 [Rx Last Taken Unknown] Handicap Placard #1 ea 07/25/22 [Rx Last Taken Unknown] fluticasone furoate 200 mcg-vilanterol 25 mcg/dose inhalation powder (Breo Ellipta) 1 inh inhalation DAILY #3 ea 07/25/22 [Rx Last Taken Unknown] tiotropium bromide 2.5 mcg/actuation mist for inhalation (Spiriva Respimat) 2 puff inhalation QDAY #3 ea 07/25/22 [Rx Last Taken Unknown] albuterol sulfate 90 mcg/actuation aerosol inhaler (Ventolin HFA) 2 puff inhalation Q6H R06.02 J44.1 #18 grams 07/29/22 [Rx Last Taken Unknown] prednisone 10 mg tablet 10 mg PO QDAY #90 tabs 07/30/22 [Rx Last Taken Unknown] albuterol sulfate 1.25 mg/3 mL solution for nebulization 1.25 mg (3 mL) inhalation Q4H #600 mL 08/29/22 [Rx Last Taken Unknown] apixaban 5 mg tablet (Eliquis) 5 mg PO BID #60 tabs 10/29/22 [Rx Last Taken Unknown] azithromycin 250 mg tablet 250 mg PO .COMPLEX #36 tabs 10/29/22 [Rx Last Taken Unknown] levofloxacin 500 mg tablet 500 mg PO DAILY #5 tabs 10/29/22 [Rx Last Taken Unknown] metoprolol tartrate 50 mg tablet 75 mg PO BID #90 tabs 10/29/22 [Rx Last Taken Unknown] prednisone 20 mg tablet 40 mg PO DAILY #10 tabs 10/29/22 [Rx Last Taken Unknown] Allergy/AdvReac Type Severity Reaction Status Date / Time No Known Allergies Allergy Verified 10/27/22 11:15 Family History Mother Diabetes Father Lung cancer Surgical History S/P aneurysm repair Social History Smoking Status: Former smoker quit date: 10/20/16 pack-years: 43 second hand exposure: Yes alcohol intake: never substance use type: does not use ROS ROS Narrative 10 systems were reviewed with pertinent positives as noted in the HPI above. Physical Exam Const alert and no apparent distress General Appearance: cooperative HEENT normocephalic, head/scalp atraumatic and moist oral mucous membranes Eyes PERRL, EOMs intact bilaterally and conjunctivae normal Neck supple General: trachea midline Chest Chest Narrative: Increased AP diameter. Resp normal respiratory effort Auscultation: diminished lung sounds; Negative for rales, rhonchi or wheezes Cardio regular rate and regular rhythm GI normal to inspection, nondistended, normoactive bowel sounds Extremity no clubbing, cyanosis or edema Skin no rashes or lesions noted Neuro CN's II-XII intact bilaterally, moves all extremities and no focal motor deficits Psych cooperative and affect normal Lab / Micro Data Result Diagrams: 10/28/22 06:25 10/28/22 06:25 Labs: Laboratory Results - last 24 hr 10/27/22 11:35: Sodium 139, Potassium 3.8, Chloride 104, Carbon Dioxide 31.0, Anion Gap 4 L, BUN 13, Creatinine 0.80, Estim Creat Clear Calc 70.87, Est GFR (MDRD) Af Amer 124, Est GFR (MDRD) Non-Af 102, BUN/Creatinine Ratio 16.2, Glucose 144 H, Calcium 9.5, Troponin I High Sens 13 10/27/22 11:35: D-Dimer Quant (PE/DVT) 0.37 10/27/22 13:50: Troponin I High Sens 13 10/27/22 18:05: Troponin I High Sens 13 10/28/22 06:25: WBC 5.9, RBC 3.19 L, Hgb 10.0 L, Hct 31.7 L, MCV 99.4 H, MCH 31.3, MCHC 31.5 L, RDW Std Deviation 48.1 H, RDW Coeff of Fe 13.2, Plt Count 321, MPV 9.2, Immature Gran % (Auto) 0.500, Neut % (Auto) 81.0 H, Lymph % (Auto) 9.5 L, [place] % (Auto) 9.0, Eos % (Auto) 0.0, Baso % (Auto) 0.0, Absolute Neuts (auto) 4.8, Absolute Lymphs (auto) 0.56 L, Nucleated RBC % 0, Differential Comment SCANNED 10/28/22 06:25: Sodium 138, Potassium 4.0, Chloride 103, Carbon Dioxide 28.0, Anion Gap 7, BUN 17, Creatinine 0.78, Estim Creat Clear Calc 53.70, Est GFR (MDRD) Af Amer 126, Est GFR (MDRD) Non-Af 105, BUN/Creatinine Ratio 21.7 H, Glucose 133 H, Calcium 9.3, Phosphorus 3.1, Magnesium 2.2, Total Bilirubin 0.60, AST 9 L, ALT 18, Alkaline Phosphatase 57, Total Protein 7.4, Albumin 2.9 L, Globulin 4.5 H, Albumin/Globulin Ratio 0.6 L, TSH 0.11 L 10/28/22 06:25: PT 15.0 H, INR 1.2, APTT 26.9 Micro: Microbiology 10/27/22 15:20 Sputum, Expectorated/Coughed Gram Stain - Preliminary 10/27/22 15:20 Sputum, Expectorated/Coughed Respiratory Culture - Preliminary GNR non mortician supplies sales representative Radiology Impression Chest X-Ray 10/27/22 11:38 IMPRESSION: 6 cm left apical lung mass suggestive of neoplasm. Suspect mediastinal involvement. COPD. Follow-up CT chest recommended. Electronically Signed: Kyree Khan MD at 12:15 EST , Chest CT 10/27/22 13:44 IMPRESSION: 1. 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 2. No evidence of metastatic disease. 3. Prominent diffuse pulmonary emphysema. Electronically Signed: Kyree Khan MD at 14:36 EST , Charges/Coding Visit Charges Inpatient E&M: 27588 Init Hosp L3
--- NOTE | 2022-10-28 12:36 | EKG12_ITS ---
Test Reason : Blood Pressure : / mmHG Vent. Rate : 074 BPM Atrial Rate : 074 BPM P-R Int : 158 ms QRS Dur : 080 ms QT Int : 386 ms P-R-T Axes : 079 079 061 degrees QTc Int : 428 ms Normal sinus rhythm Normal ECG When compared with ECG of 28-OCT-2022 05:23, Nonspecific T wave abnormality no longer evident in Anterior leads Confirmed by ESHA CH, BRAD ([id number]), visual effects editor BLANCO HOLLIS ([id number]) on 11/07/2022 2:00:22 PM Referred By: DENNYS Confirmed By:SHERMAN BALBUENA MD
--- NOTE | 2022-10-28 12:46 | PN.HOSP_ITS ---
Subjective Subjective Follow-up for shortness of breath, lung mass and COPD. A. fib with RVR. Objective Data Objective Data Vital Signs: Vital Signs Temp Pulse Resp BP Pulse Ox O2 Del Method O2 Flow Rate 98.2 F 76 18 125/77 H 95 Nasal Cannula 2 10/28/22 12:30 10/28/22 12:30 10/28/22 12:30 10/28/22 12:30 10/28/22 12:30 10/28/22 12:40 10/28/22 12:40 Oxygen Flow Rate (L/min) [4] 3 Oxygen Flow Rate (L/min) [3] 3 Oxygen Flow Rate (L/min) [2] 3 Oxygen Flow Rate (L/min) [1 ( 3 Initial Baseline)] Oxygen Flow Rate (L/min) 2 Oxygen Delivery Method [4] Nasal Cannula Oxygen Delivery Method [3] Nasal Cannula Oxygen Delivery Method [2] Nasal Cannula Oxygen Delivery Method [1 ( Nasal Cannula Initial Baseline)] Oxygen Delivery Method Nasal Cannula Weight: 118 lb 6.212 oz Body Mass Index (BMI) 19.1 Intake & Output: Intake and Output for Last 24 Hours 10/26/22 10/27/22 10/28/22 23:59 23:59 23:59 Intake Total 10.58 / 15.58 120 / 120 Output Total 150 / 150 Balance 10.58 / 15.58 -30 / -30 Lab / Micro Data Result Diagrams: 10/28/22 06:25 10/28/22 06:25 Labs: Laboratory Results - last 24 hr 10/27/22 11:35: D-Dimer Quant (PE/DVT) 0.37 10/27/22 13:50: Troponin I High Sens 13 10/27/22 18:05: Troponin I High Sens 13 10/28/22 06:25: WBC 5.9, RBC 3.19 L, Hgb 10.0 L, Hct 31.7 L, MCV 99.4 H, MCH 31.3, MCHC 31.5 L, RDW Std Deviation 48.1 H, RDW Coeff of Fe 13.2, Plt Count 321, MPV 9.2, Immature Gran % (Auto) 0.500, Neut % (Auto) 81.0 H, Lymph % (Auto) 9.5 L, [place] % (Auto) 9.0, Eos % (Auto) 0.0, Baso % (Auto) 0.0, Absolute Neuts (auto) 4.8, Absolute Lymphs (auto) 0.56 L, Nucleated RBC % 0, Differential Comment SCANNED 10/28/22 06:25: Sodium 138, Potassium 4.0, Chloride 103, Carbon Dioxide 28.0, Anion Gap 7, BUN 17, Creatinine 0.78, Estim Creat Clear Calc 53.70, Est GFR (MDRD) Af Amer 126, Est GFR (MDRD) Non-Af 105, BUN/Creatinine Ratio 21.7 H, Glucose 133 H, Calcium 9.3, Phosphorus 3.1, Magnesium 2.2, Total Bilirubin 0.60, AST 9 L, ALT 18, Alkaline Phosphatase 57, Total Protein 7.4, Albumin 2.9 L, Globulin 4.5 H, Albumin/Globulin Ratio 0.6 L, TSH 0.11 L 10/28/22 06:25: PT 15.0 H, INR 1.2, APTT 26.9 Micro: Microbiology 10/27/22 15:20 Sputum, Expectorated/Coughed Gram Stain - Final 10/27/22 15:20 Sputum, Expectorated/Coughed Respiratory Culture - Preliminary GNR non medical records coordinator Radiography Diagnostic Testing: Radiology Impression Chest CT 10/27/22 13:44 IMPRESSION: 1. 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 2. No evidence of metastatic disease. 3. Prominent diffuse pulmonary emphysema. Electronically Signed: Kyree Khan MD at 14:36 EST , Chest X-Ray 10/28/22 11:50 IMPRESSION: No evidence of pneumothorax on the immediate post left lung biopsy radiographs. Electronically Signed: Arun Alexandre MD at 12:33 EST , Biopsy CT 10/28/22 14:32 IMPRESSION: 1. CT directed core needle biopsy of the left apical pulmonary nodule using CT image guidance with image documentation as described. Pathology results are pending. 2. Conscious Sedation protocol utilized with independent monitoring. Electronically Signed: Arun Alexandre MD at 12:22 EST , Physical Exam Narrative Physical exam General: Alert, Oriented x3, Cooperative, BMI 19.1 kg/m? mild protein calorie malnutrition. HEENT: Atraumatic, PERRLA, EOMI, Normocephalic Oral: No Gingival or Mucosal Lesions/ Ulcerations Neck: Supple, No JVD, Negative Carotid Bruits Lungs: Air entry diminished in bilateral lung bases. No crepitation/rhonchi. Not in respiratory distress. Left anterior needle biopsy. No hematoma. Cardiovascular: Irregular rate and rhythm, Normal S1, Normal S2, No murmurs Abdomen: Bowel Sounds Present, Soft, Non Tender, Non-Distended : No renal angle tenderness. No suprapubic tenderness. Extremities: No edema, Capillary Refill Less than 3 Seconds Skin: No rashes, No breakdown Musculoskeletal: No Tenderness to Palpation of Joints or Extremities Neurological: Cranial nerves II-XII grossly intact, DTR 2+/4 and Symmetrical. Psych/Mental Status: Flat affect. Assessment & Plan Assessment/Plan (1) Chronic hypoxemic respiratory failure: (2) Atrial fibrillation with RVR: (3) Mass of left lung: PLAN: Plan New onset atrial fibrillation with RVR -Patient was given 1 dose of IV Cardizem in the emergency department which did slow down his rate. Metoprolol dose increased to 75 mg daily. Not on anticoagulant as patient had biopsy today. Start Eliquis from tomorrow. TSH is 0.11. Free T4 ordered. 2D echo EF 60%. Compared to previous study LV function same. Left upper lobe lung mass -CT-guided biopsy was done on 10/28/2022. No hematoma. Pulmonary consult reviewed. Chronic hypoxic respiratory failure secondary to Gold stage 4 COPD -Patient is on 3 L supplemental nasal cannula at baseline -Patient is complaining of some increased mucus production. 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 On home azithromycin to 50 mg 3 times a week. -Scheduled and as needed nebulizers -I-S/Pep therapy -Steroids IV 40 every 8 -Continue home inhalers -Consult pulmonary medicine BPH -Continue home Flomax Hypertension -Continue home beta-laurie but increase dose to 75 mg daily with A. fib History of alcohol abuse -Remote History of tobacco abuse -Remote -Encourage ongoing cessation DVT prophylaxis -Subcu heparin until full anticoagulation for atrial fibrillation can be initiated after CT-guided biopsy CODE STATUS -Full code as discussed in the emergency department prior to admission Charges/Coding Visit Charges Inpatient E&M: 92169 Subs Hosp L2
[2022-10-28] MEDS: levoFLOXacin IV 750 MG/150 ML BAG 100 MG IV (14:32)
--- NOTE | 2022-10-28 14:32 | CT_ITS ---
PROCEDURE: CT GUIDED CORE NEEDLE BIOPSY OF A left apical LUNG LESION INDICATION: Male, 67 years old. SONY lung mass PHYSICIAN: Dr. SANTANA Hernández CONSENT: Written informed consent was obtained having explained the risks, benefits and alternatives in detail with the patient who accepted the risks and agreed to proceed. Laboratory review and clinical assessment was performed. CONSCIOUS SEDATION PROTOCOL: The Drugs used were: 2 Versed, IV., and 25 mcg Fentanyl, IV. The sedation time was: 18 minutes. Conscious sedation was started 11:26 AM and terminated at 11:44 AM. The conscious sedation protocol was independently monitored. RADIATION DOSAGE (If Supplied By Facility): CTDIvol = ( 14.5 ) mGy, DLP = ( 161.37 ) mGycm Individualized dose optimization techniques were used for this CT. TECHNIQUE: The patient was placed in the position. A noncontrast CT was performed to localize the lesion in the supine position . The skin surface was prepped and draped in a sterile fashion. 1% lidocaine was used for local anesthesia. Using CT guidance, a 20-gauge coaxial biopsy device was advanced to the periphery of the lesion. A total of 4 core specimens were obtained. The specimens were placed in a formalin solution. A post procedure CT demonstrated no adverse sequelae or pneumothorax. The patient tolerated the procedure well without adverse event. A negative biopsy does not exclude malignancy. Further imaging or clinical followup based on patient condition and degree of clinical suspicion for malignancy. Suggest rebiopsy, if biopsy results do not match with clinical scenario. CT/Biopsy/Inj or Needle Placement IMPRESSION: 1. CT directed core needle biopsy of the left apical pulmonary nodule using CT image guidance with image documentation as described. Pathology results are pending. 2. Conscious Sedation protocol utilized with independent monitoring. Electronically Signed: Arun Alexandre MD at 12:22 EST ,
[2022-10-28] MEDS: Aspirin E.C. 81 MG Tablet PO (14:33)
--- NOTE | 2022-10-28 14:52 | RAD_ITS ---
STUDY: X-RAY CHEST REASON FOR EXAM: Male, 67 years old. Pneumothorax -- 3 hours post lung biopsy TECHNIQUE: AP inspiration and expiration views. COMPARISON: Comparison is made with prior study done earlier today. FINDINGS: No evidence of pneumothorax on the delayed post left lung biopsy radiographs. RAD/Chest Insp/Exp 2 View IMPRESSION: No evidence of pneumothorax on the delayed post left lung biopsy radiographs. Electronically Signed: Arun Alexandre MD at 15:11 EST ,
--- NOTE | 2022-10-28 15:09 | CPS ---
Gely talked to pt about the BIPAP. Pt says he won't wear it so Gely pulled the machine out of the room d/t it being needed elsewhere in the hospital.
[2022-10-28] MEDS: dilTIAZem CD 120 MG Capsule PO (20:03)
[2022-10-29] VITALS (9 sets, daily range): BP systolic 122–136; BP diastolic 78–108; PULSE 72–88; RESP 12–22; TEMP 36.7–36.8; O2SAT 96–100
[2022-10-29] MEDS: Ipratropium/Albuterol Sulfate 3 ML AMPUL.NEB INHALATION ×3 (01:08→10:53)
[2022-10-29] MEDS: 0.9% Saline Lock 10 ML Syringe IV (05:19)
[2022-10-29 06:53] LABS: T4 Free Direct 1.43 ng/dL (0.76-1.46)
--- NOTE | 2022-10-29 09:16 | NURSING ---
Emergency documentation per charger.
[2022-10-29] MEDS: Tamsulosin HCl 0.4 MG Capsule PO (09:30)
[2022-10-29] MEDS: dilTIAZem CD 120 MG Capsule PO (09:30)
[2022-10-29] MEDS: Aspirin E.C. 81 MG Tablet PO (09:30)
[2022-10-29] MEDS: Metoprolol Tartrate 50 MG Tablet 75 MG PO (09:30)
[2022-10-29] MEDS: levoFLOXacin IV 750 MG/150 ML BAG 100 MG IV (09:32)
--- NOTE | 2022-10-29 10:34 | DCINST_ITS ---
Discharge Instructions Diet Discharge Diet: 2000 mg Sodium Diet Dressing / Incision Call your doctor if you observe: Fever of 101 or Higher, Coldness, Increased Pain, Numbness or Tingling, Change in Color, Inability to urinate, Inability to have a bowel movement, Shortness of breath, Dizziness, Fainting spells, Swelling in the ankles, Chest pain, Prolonged hiccupping, Increased palpitations (irregular heartbeat), Calf discomfort and Uncontrolled pain Follow Up Care Test Results: Test results from this visit will be discussed in further detail at your follow- up appointment, if applicable. Discharge Plan Admission Admit Date/Time: 10/27/22 14:26 Primary Reason for Your Visit: A. fib with RVR, large left lung mass Attending Provider: Aguilar Linder Primary Care Provider: Caroline Tejeda Consulting Providers: Jorge Tucker ; Luis Hernández ; Jerrell Mann ; Adrien Richey ; Delilah Benoit FOREST RESOURCE SPECIALIST ; Arun Alexandre ; Briseyda Allan Instructions Patient Instructions: RAD post doc fellowship Instructions Needle Biopsy: Lung, RAD RN Procedural Sedation Additional Instructions / Restrictions: Patient advised to Eliquis 5 mg twice daily starting tonight after 36 hours of lung biopsy. Discharge Orders/Prescriptions Prescriptions: New metoprolol tartrate 50 mg Tablet 75 mg PO BID Qty: 90 1RF levofloxacin 500 mg tablet 500 mg PO DAILY Qty: 5 0RF prednisone 20 mg tablet 40 mg PO DAILY Qty: 10 0RF Eliquis 5 mg tablet 5 mg PO BID Qty: 60 1RF Rx Instructions: for nonvalvular Afib Continued tamsulosin [Flomax] 0.4 mg capsule 0.4 mg PO DAILY Daliresp 500 mcg tablet 500 mcg PO DAILY Qty: 90 3RF (DME) Handicap Placard Qty: 1 0RF Rx Instructions: expires 07/25/2027 Breo Ellipta 200-25 mcg/dose blister with device 1 inh inhalation DAILY Qty: 3 3RF Spiriva Respimat 2.5 mcg/actuation mist 2 puff INHALATION QDAY Qty: 3 3RF albuterol sulfate [Ventolin HFA] 90 mcg/actuation HFA aerosol inhaler 2 puff INHALATION Q6H Qty: 18 6RF Rx Instructions: R06.02 J44.1 albuterol sulfate 1.25 mg/3 mL solution for nebulization 1.25 mg inhalation Q4H Qty: 600 3RF Rx Instructions: J44.9 COPD R06.02 Shortness of Breath Changed azithromycin 250 mg tablet 250 mg PO .COMPLEX Qty: 36 6RF Rx Instructions: 250 mg PO three times weekly, Fri Hold while patient is taking Levaquin. Held prednisone 10 mg tablet 10 mg PO QDAY Qty: 90 3RF Hold Instructions: Hold while patient is prednisone burst therapy. Discontinued metoprolol tartrate [Lopressor] 50 mg tablet 50 mg PO DAILY aspirin [Adult Low Dose Aspirin] 81 mg tablet,delayed release (DR/EC) 81 mg PO DAILY Referrals / Follow Up: David Murillo MD [Med Staff - Active Staff] - Within 1 Month (New onset Afib) Luis Hernández DO [Med Staff - Active Staff] - Within 1 Week (to discuss lung biopsy result) Caroline Tejeda PA [Primary Care Provider] - Disposition Disposition (needs filled in before D/C Order can be placed): Home, Self Care
--- NOTE | 2022-10-29 10:42 | PCM.DC.SUM ---
Providers Date of Admission: 10/27/22 Date of Discharge: 10/29/22 Primary Care Physician: OFELIA Medina Consultations 10/27/22 15:19 Consult: Tax Services Intern / Pulmonary Medicine Routine Consulting Provider: [facility] Reason for Consult: SONY Lung mass EMERGENT Consult: No Notified: Yes Date Notified: 10/27/22 Time Notified: 15:24 Method of Notification: Text Consult: Interventional Radiology Routine Consulting Provider: Arun Alexandre Reason for Consult: lung mass EMERGENT Consult: No Notified: Yes Date Notified: 10/27/22 Time Notified: 14:31 Method of Notification: biopsy ordered Reason For Visit: NEW ONSET A-FIB/L LUNG MASS Diagnosis Discharge Diagnosis (1) Chronic hypoxemic respiratory failure: Status: Chronic Code(s): J96.11 - Chronic respiratory failure with hypoxia (2) Atrial fibrillation with RVR: Status: Acute Code(s): I48.91 - Unspecified atrial fibrillation (3) Mass of left lung: Status: Acute Code(s): R91.8 - Other nonspecific abnormal finding of lung field Plan This 67-year-old gentleman was admitted with shortness of breath for 2 to 3 days. He was tachycardic 120s and hypoxic at home. Patient was very short of breath, labored breathing lightheaded but no fever. Has chronic cough. In ED was found to have A. fib with RVR. Chest x-ray showed 6 cm left apical lung mass suggestive of neoplasm. 1. New onset atrial fibrillation with RVR -Patient was given 1 dose of IV Cardizem in the emergency department which did slow down his rate. Metoprolol dose increased to 75 mg daily. Not on anticoagulant as patient had biopsy today. Patient converted to sinus rhythm last night. Patient was on metoprolol 50 mg once daily which is increased to 75 mg twice daily. Heart rate is controlled and blood pressure about 120s systolic therefore Cardizem discontinued. TSH is 0.11. Free T4 1.43. 2D echo EF 60%. Compared to previous study LV function same. Left upper lobe lung mass -CT-guided biopsy was done on 10/28/2022. No hematoma. Pulmonary consult reviewed. Follow-up advanced clinical specialist in 1 week to discuss the lung biopsy. Chronic hypoxic respiratory failure secondary to Gold stage 4 COPD -Patient is on 3 L supplemental nasal cannula at baseline Medical Director.Patient on Levaquin. On home azithromycin to 50 mg 3 times a week. -Scheduled and as needed nebulizers -I-S/Pep therapy -Steroids IV 40 every 8 Prelim sputum culture shows Serratia marcescens. Chest x-ray does not show any focal infiltrate. -Continue home inhalers patient seen by advanced clinical specialist. Patient on maximum triple inhaler therapy for COPD. Patient is discharged on prednisone burst therapy 40 mg daily for 5 days and Levaquin 500 mg daily for 5 more days to complete a total of 7 days. Patient on baseline 3 L of oxygen at home. BPH -Continue home Flomax Hypertension -Continue home beta-laurie but increase dose to 75 mg daily with A. fib History of alcohol abuse -Remote History of tobacco abuse -Remote -Encourage ongoing cessation DVT prophylaxis -Subcu heparin until full anticoagulation for atrial fibrillation can be initiated after CT-guided biopsy CODE STATUS -Full code as discussed in the emergency department prior to admission Discharge medication reconciliation done. Discharge follow-up instructions completed. Discharge process discussed with the patient and all questions were answered to patient's satisfaction. Total time spent, exact 35 minutes on discharge meds reconciliation, examination, coordination of care with nurses and ancillary staff, review of imaging and blood test and discussion with the patient on follow-up instructions. Medications at Discharge Home Medications tamsulosin 0.4 mg capsule (Flomax) 0.4 mg PO DAILY 08/02/20 roflumilast 500 mcg tablet (Daliresp) 500 mcg PO DAILY #90 tabs 07/31/21 Handicap Placard #1 ea 07/25/22 fluticasone furoate 200 mcg-vilanterol 25 mcg/dose inhalation powder (Breo Ellipta) 1 inh inhalation DAILY #3 ea 07/25/22 tiotropium bromide 2.5 mcg/actuation mist for inhalation (Spiriva Respimat) 2 puff inhalation QDAY #3 ea 07/25/22 albuterol sulfate 90 mcg/actuation aerosol inhaler (Ventolin HFA) 2 puff inhalation Q6H R06.02 J44.1 #18 grams 07/29/22 prednisone 10 mg tablet 10 mg PO QDAY #90 tabs 07/30/22 albuterol sulfate 1.25 mg/3 mL solution for nebulization 1.25 mg (3 mL) inhalation Q4H #600 mL 08/29/22 apixaban 5 mg tablet (Eliquis) 5 mg PO BID #60 tabs 10/29/22 azithromycin 250 mg tablet 250 mg PO .COMPLEX #36 tabs 10/29/22 levofloxacin 500 mg tablet 500 mg PO DAILY #5 tabs 10/29/22 metoprolol tartrate 50 mg tablet 75 mg PO BID #90 tabs 10/29/22 prednisone 20 mg tablet 40 mg PO DAILY #10 tabs 10/29/22 Physical Exam Narrative Seen and examined. Shortness of breath is improved. Heart rate is controlled. threat monitoring analyst shows sinus rhythm. Physical exam General: Alert, Oriented x3, Cooperative, BMI 19.1 kg/m? mild protein calorie malnutrition. HEENT: Atraumatic, PERRLA, EOMI, Normocephalic Oral: No Gingival or Mucosal Lesions/ Ulcerations Neck: Supple, No JVD, Negative Carotid Bruits Lungs: Air entry diminished in bilateral lung bases. No crepitation/rhonchi. Not in respiratory distress. Left anterior needle biopsy. No hematoma. Cardiovascular: Normal sinus rhythm normal S1, Normal S2, No murmurs Abdomen: Bowel Sounds Present, Soft, Non Tender, Non-Distended : No renal angle tenderness. No suprapubic tenderness. Extremities: No edema, Capillary Refill Less than 3 Seconds Skin: No rashes, No breakdown Musculoskeletal: No Tenderness to Palpation of Joints or Extremities Neurological: Cranial nerves II-XII grossly intact, DTR 2+/4 and Symmetrical. Psych/Mental Status: Flat affect. Medical Records Data Medical Nutrition Assessment Dietitian: Malnutrition Criteria Met Start: 10/28/22 14:10 Freq: Status: Active Protocol: Document 10/28/22 14:10 (Rec: 10/28/22 14:10 [id number]) Nutrition Malnutrition Evidence of Malnutrition Exists Yes Malnutrition (severe): Acute Illness/Injury Evidenced By Suboptimal Energy Intake ( Severe),Weight Loss (Severe) Clinical Problem Acute Disease or Injury Related Malnutrition Etiology severe, acute malnutrition related to inadequate oral intake Signs/Symptoms as evidenced by estimated PO intake meeting <50% of estimated energy needs x 5 days; unintentional wt loss of 6.6#/5% < 1 week Status Active Problem Recommendation Dietitian Recommendations/Changes regular diet ; 240mL ensure plus high protein w/ dinner given evidence of malnutrition . Weight / BMI Weight Weight: 118 lb 6.212 oz Body Mass Index (BMI) 19.1 ABG / Lab / Microbiology Data Result Diagrams: 10/28/22 06:25 10/28/22 06:25 Laboratory: Laboratory Results - last 24 hr 10/29/22 05:54: Free T4 1.43 Microbiology: Microbiology 10/27/22 15:20 Sputum, Expectorated/Coughed Gram Stain - Final 10/27/22 15:20 Sputum, Expectorated/Coughed Respiratory Culture - Preliminary Serratia marcescens Radiography Diagnostic Testing: Radiology Impression Echocardiogram 10/28/22 05:55 Interpretation Summary Normal LV size. Left ventricular systolic function is normal. The estimated ejection fraction is 60 %. Compared to previous study, the left ventricular systolic function is the same.. Ordering Physician: Briseyda Allan Performed By: Nathan Xiong RCS Chest X-Ray 10/28/22 11:50 IMPRESSION: No evidence of pneumothorax on the immediate post left lung biopsy radiographs. Electronically Signed: Arun Alexandre MD at 12:33 EST , Biopsy CT 10/28/22 14:32 IMPRESSION: 1. CT directed core needle biopsy of the left apical pulmonary nodule using CT image guidance with image documentation as described. Pathology results are pending. 2. Conscious Sedation protocol utilized with independent monitoring. Electronically Signed: Arun Alexandre MD at 12:22 EST , Chest X-Ray 10/28/22 14:52 IMPRESSION: No evidence of pneumothorax on the delayed post left lung biopsy radiographs. Electronically Signed: Arun Alexandre MD at 15:11 EST , D/C Instructions Discharge Diet: 2000 mg Sodium Diet Call your doctor if you observe: Fever of 101 or Higher, Coldness, Increased Pain, Numbness or Tingling, Change in Color, Inability to urinate, Inability to have a bowel movement, Shortness of breath, Dizziness, Fainting spells, Swelling in the ankles, Chest pain, Prolonged hiccupping, Increased palpitations (irregular heartbeat), Calf discomfort and Uncontrolled pain Meaningful Use Info Meaningful Use Diagnoses (Choose all that apply): None applicable Discharge Plan Admission Admit Date/Time: 10/27/22 14:26 Primary Reason for Your Visit: A. fib with RVR, large left lung mass Attending Provider: Aguilar Linder Primary Care Provider: Caroline Tejeda Consulting Providers: Jorge Tucker ; Luis Hernández ; Jerrell Mann ; Adrien Richey ; Delilah Benoit DIRECTOR [employer] ; Arun Alexandre ; Briseyda Allan Instructions Patient Instructions: RAD coal picker Instructions Needle Biopsy: Lung, RAD RN Procedural Sedation Additional Instructions / Restrictions: Patient advised to Eliquis 5 mg twice daily starting tonight after 36 hours of lung biopsy. Discharge Orders/Prescriptions Prescriptions: New metoprolol tartrate 50 mg Tablet 75 mg PO BID Qty: 90 1RF levofloxacin 500 mg tablet 500 mg PO DAILY Qty: 5 0RF prednisone 20 mg tablet 40 mg PO DAILY Qty: 10 0RF Eliquis 5 mg tablet 5 mg PO BID Qty: 60 1RF Rx Instructions: for nonvalvular Afib Continued tamsulosin [Flomax] 0.4 mg capsule 0.4 mg PO DAILY Daliresp 500 mcg tablet 500 mcg PO DAILY Qty: 90 3RF (DME) Handicap Placard Qty: 1 0RF Rx Instructions: expires 07/25/2027 Breo Ellipta 200-25 mcg/dose blister with device 1 inh inhalation DAILY Qty: 3 3RF Spiriva Respimat 2.5 mcg/actuation mist 2 puff INHALATION QDAY Qty: 3 3RF albuterol sulfate [Ventolin HFA] 90 mcg/actuation HFA aerosol inhaler 2 puff INHALATION Q6H Qty: 18 6RF Rx Instructions: R06.02 J44.1 albuterol sulfate 1.25 mg/3 mL solution for nebulization 1.25 mg inhalation Q4H Qty: 600 3RF Rx Instructions: J44.9 COPD R06.02 Shortness of Breath Changed azithromycin 250 mg tablet 250 mg PO .COMPLEX Qty: 36 6RF Rx Instructions: 250 mg PO three times weekly, FRI WED FRI Hold while patient is taking Levaquin. Held prednisone 10 mg tablet 10 mg PO QDAY Qty: 90 3RF Hold Instructions: Hold while patient is prednisone burst therapy. Discontinued metoprolol tartrate [Lopressor] 50 mg tablet 50 mg PO DAILY aspirin [Adult Low Dose Aspirin] 81 mg tablet,delayed release (DR/EC) 81 mg PO DAILY Referrals / Follow Up: David Murillo MD [Med Staff - Active Staff] - Within 1 Month (New onset Afib) Luis Hernández DO [Med Staff - Active Staff] - Within 1 Week (to discuss lung biopsy result) Caroline Tejeda PA [Primary Care Provider] - Disposition Disposition (needs filled in before D/C Order can be placed): Home, Self Care Charges/Coding Visit Charges Inpatient E&M: 57572 Disch Hosp >30min
--- NOTE | 2022-10-29 11:01 | PN.CC_ITS ---
Assessment & Plan Assessment/Plan (1) Mass of left lung: PLAN: Plan RECOMMENDATIONS: 1. Supplemental oxygen as tolerated to maintain saturations at or above 90%. 2. Continue Levaquin to complete 7-day treatment course. 3. Continue scheduled bronchodilators and IV steroids. Resume baseline prednisone regimen at discharge. 4. Encourage incentive spirometer use and mobilize patient as tolerated. 5. Outpatient pulmonary follow-up to review the results of his lung biopsy. IMPRESSIONS: 1. End-stage COPD with exacerbation Although the patient did not have any focal infiltrate identified on chest imaging, the patient did demonstrate growth of Serratia marcescens, which likely led to an exacerbation of his underlying obstructive lung disease. He is already on maximum outpatient therapy for his underlying COPD, but does have a history of frequent exacerbations. I agree with continuing scheduled bronchodilators and IV steroids. The patient remains on azithromycin, per his home regimen. The patient is maintaining appropriate oxygen saturations on his baseline requirement. I would recommend that he be discharged home on Levaquin to complete a 7-day treatment course. The patient should resume his baseline prednisone regimen and inhalers upon discharge. 2. Lung mass CT imaging of the chest performed in the emergency department demonstrated a left apical lung mass, for which the patient underwent CT-guided lung biopsy on October 28. These findings are certainly concerning for an underlying primary lung cancer. The patient can follow-up in the pulmonary medicine clinic after discharge to review the results of his lung biopsy. 3. Chronic hypoxemic respiratory failure Continue 3 L/min of supplemental oxygen, per home regimen. This note was generated with M[employer] dictation software. It may contain incorrect words, spelling, and punctuation that were not noted in checking the note before signing. Subjective Subjective The patient was seen and examined at the bedside this morning. Events from the last 24 hours have been reviewed. The patient is currently afebrile, hemody namically stable and maintaining appropriate oxygen saturations on his baseline 3 L/min oxygen requirement. The patient continues to report ongoing shortness of breath despite his appropriate oxygenation status. His cough is slowly improving. Objective Data Objective Data The patient's most recent lab work, culture data and imaging studies have all been personally reviewed. Sputum culture dated October 27 was positive for Serratia marcescens. Vital Signs: Vital Signs Temp Pulse Resp BP Pulse Ox O2 Del Method O2 Flow Rate 98.0 F 88 16 122/108 H 100 Nasal Cannula 3 10/29/22 09:22 10/29/22 09:30 10/29/22 09:22 10/29/22 09:30 10/29/22 09:22 10/29/22 09:22 10/29/22 09:22 Oxygen Flow Rate (L/min) [4] 3 Oxygen Flow Rate (L/min) [3] 3 Oxygen Flow Rate (L/min) [2] 3 Oxygen Flow Rate (L/min) [1 ( 3 Initial Baseline)] Oxygen Flow Rate (L/min) 3 Oxygen Delivery Method [4] Nasal Cannula Oxygen Delivery Method [3] Nasal Cannula Oxygen Delivery Method [2] Nasal Cannula Oxygen Delivery Method [1 ( Nasal Cannula Initial Baseline)] Oxygen Delivery Method Nasal Cannula Weight: 118 lb 6.212 oz Body Mass Index (BMI) 19.1 Intake & Output: Intake and Output for Last 24 Hours 10/27/22 10/28/22 10/29/22 23:59 23:59 23:59 Intake Total 10.58 / 15.58 574.25 / 574.25 0 / 0 Output Total 300 / 425 125 / 125 Balance 10.58 / 15.58 274.25 / 149.25 -125 / -125 Medical Nutrition Assessment Dietitian: Malnutrition Criteria Met Start: 10/28/22 14:10 Freq: Status: Active Protocol: Document 10/28/22 14:10 AG (Rec: 10/28/22 14:10 AG [id number]) Nutrition Malnutrition Evidence of Malnutrition Exists Yes Malnutrition (severe): Acute Illness/Injury Evidenced By Suboptimal Energy Intake ( Severe),Weight Loss (Severe) Clinical Problem Acute Disease or Injury Related Malnutrition Etiology severe, acute malnutrition related to inadequate oral intake Signs/Symptoms as evidenced by estimated PO intake meeting <50% of estimated energy needs x 5 days; unintentional wt loss of 6.6#/5% < 1 week Status Active Problem Recommendation Dietitian Recommendations/Changes regular diet ; 240mL ensure plus high protein w/ dinner given evidence of malnutrition . Lab / Micro Data Attestation: I reviewed the patient's lab results. Result Diagrams: 10/28/22 06:25 10/28/22 06:25 Labs: Laboratory Results - last 24 hr 10/29/22 05:54: Free T4 1.43 Micro: Microbiology 10/27/22 15:20 Sputum, Expectorated/Coughed Gram Stain - Final 10/27/22 15:20 Sputum, Expectorated/Coughed Respiratory Culture - Preliminary Serratia marcescens Radiography Diagnostic Testing: Radiology Impression Echocardiogram 10/28/22 05:55 Interpretation Summary Normal LV size. Left ventricular systolic function is normal. The estimated ejection fraction is 60 %. Compared to previous study, the left ventricular systolic function is the same.. Ordering Physician: Briseyda Allan Performed By: Nathan Xiong RCS Chest X-Ray 10/28/22 11:50 IMPRESSION: No evidence of pneumothorax on the immediate post left lung biopsy radiographs. Electronically Signed: Arun Alexandre MD at 12:33 EST , Biopsy CT 10/28/22 14:32 IMPRESSION: 1. CT directed core needle biopsy of the left apical pulmonary nodule using CT image guidance with image documentation as described. Pathology results are pending. 2. Conscious Sedation protocol utilized with independent monitoring. Electronically Signed: Arun Alexandre MD at 12:22 EST , Chest X-Ray 10/28/22 14:52 IMPRESSION: No evidence of pneumothorax on the delayed post left lung biopsy radiographs. Electronically Signed: Arun Alexandre MD at 15:11 EST , Physical Exam Const alert and no apparent distress General Appearance: cooperative HEENT normocephalic, head/scalp atraumatic and moist oral mucous membranes Eyes PERRL, EOMs intact bilaterally and conjunctivae normal Neck supple General: trachea midline Chest Chest Narrative: Increased AP diameter. Resp normal respiratory effort Auscultation: diminished lung sounds; Negative for rales, rhonchi or wheezes Cardio regular rate and regular rhythm GI normal to inspection, nondistended, normoactive bowel sounds Extremity no clubbing, cyanosis or edema Skin no rashes or lesions noted Neuro CN's II-XII intact bilaterally, moves all extremities and no focal motor deficits Psych Mood & Affect: anxious Charges/Coding Visit Charges Inpatient E&M: 37773 Subs Hosp L2
--- NOTE | 2022-10-29 11:20 | CASEMGMT ---
RN YARON Face to Face with patient for initial transition planning/care coordination assessment. RN CM introduced self and role at [facility]. Patient lying in bed, alert and oriented. Patient willing to participate in assessment and is able to answer all questions appropriately. Care providers, pharmacy, and demographics verified. Patient wishes to discharge home, denies need for home health at this time. RN CM discussed palliative care with patient, patient declined referral. RN CM provided patient on HHC and palliative information should he reconsider and instructed to follow-up with PCP. Patient states he has no further needs or concerns at this time. CM to follow for discharge planning needs that may arise. PCP: Guillermo Specialists: amy Hernández Preferred Pharmacy: [facility] Insurance: [facility] Prescription Benefit: yes, KIRILL MARURFO called [facility] to inquire about Eliquis copay, $10.35, savings card provided to patient. Living Will/HPOA: none, Advance Directives provided to patient to complete and take to notary. LNOK: daughter Living Arrangements: Patient lives with alone in a single story home with 2 steps and railing to enter. Patient states he is independent at home. Transportation: self, daughter DME/HHC: Patient states he has shower chair, cane, walker, grab bars, nebulizer, pulse ox, and home oxygen with portability at 3lpm through [facility]. Disposition Plan: Patient to discharge home with family support, provided resources, and follow-up plans in place. Milena COLE, RN, CM
== END 2022-10-29 14:01 | disposition home or self-care (01) | DRG 180 ==
LOC: ED 14:30 → PCU 14:43
PROVIDERS: Admitting Provider Internal Medicine; Emergency Provider Student in an Organized Health Care Education/Training Program; PCP Physician Assistant; Visit Provider Internal Medicine
DX: C34.12 Malignant neoplasm of upper lobe, left bronchus or lung (principal); E43 Unspecified severe protein-calorie malnutrition; J96.11 Chronic respiratory failure with hypoxia; Z68.1 Body mass index [BMI] 19.9 or less, adult; Z99.81 Dependence on supplemental oxygen; I48.91 Unspecified atrial fibrillation; J43.9 Emphysema, unspecified; I10 Essential (primary) hypertension; B96.89 Other specified bacterial agents as the cause of diseases classified elsewhere; N40.0 Benign prostatic hyperplasia without lower urinary tract symptoms; Z79.01 Long term (current) use of anticoagulants; Z79.51 Long term (current) use of inhaled steroids; Z79.82 Long term (current) use of aspirin; Z79.899 Other long term (current) drug therapy; Z87.891 Personal history of nicotine dependence
CPT/HCPCS: 36415; 71045; 71046; 71250; 77012; 80048; 80053; 83735; 84100; 84439; 84443; 84484; 85025; 85379; 85610; 85730; 87070; 87077; 87186; 87205; 88172; 88305; 88313; 88341; 88342; 93005; 93306; 94640; 94667; 94762; 99156; 99252; 99283; A4216; G0463

== ENCOUNTER → 2022-11-25 | Outpatient (CLI) | payer MEDICARE, MEDICAID, SELFPAY | END | disposition home or self-care (01) | LOC: LABSPEC 08:59 | PROVIDERS: PCP Physician Assistant; Referring Provider Nurse Practitioner Acute Care; Visit Provider Nurse Practitioner Acute Care | DX: R05.9 Cough, unspecified (principal) | CPT/HCPCS: 87070; 87077; 87186; 87205 ==

== ENCOUNTER 2022-12-01 17:11 | Emergency (ER) | payer MEDICARE, MEDICAID, SELFPAY ==
[2022-12-01 17:12] VITALS: BP 114/103; PULSE 92; RESP 20; TEMP 36.2; O2SAT 99; BMI 19.3
--- NOTE | 2022-12-01 17:29 | EKG12_ITS ---
Test Reason : SOB Blood Pressure : / mmHG Vent. Rate : 086 BPM Atrial Rate : 086 BPM P-R Int : 140 ms QRS Dur : 078 ms QT Int : 384 ms P-R-T Axes : 112 085 078 degrees QTc Int : 459 ms Normal sinus rhythm Normal ECG Confirmed by ANSELMO CH, DIMITRY ([id number]), primer expeditor and drier BLANCO HOLLIS ([id number]) on 12/02/2022 11:41:15 AM Referred By: VERNON Confirmed By:DIMITRY BRIONES MD
[2022-12-01 17:43] VITALS: O2SAT 100
--- NOTE | 2022-12-01 17:50 | RAD_ITS ---
INDICATION: Chest pain, history of lung cancer EXAMINATION/TECHNIQUE: X-RAY - portable upright AP chest x-ray COMPARISON: 10/28/2022 FINDINGS: LINES/DEVICES: None. LUNGS: Stable hyperinflation. Left upper lobe lung mass unchanged. No infiltrates, consolidations or pleural effusions. MEDIASTINUM AND CARDIOVASCULAR STRUCTURES: Cardiac silhouette stable within normal limits. BONES AND SOFT TISSUES: No acute changes. RAD/Chest 1 View (Portable) IMPRESSION: Stable portable chest x-ray with stable left upper lobe lung mass. Electronically Signed: Bruno Angel MD at 18:38 EST ,
[2022-12-01 18:07] LABS: Absolute Lymphocyte Count 0.99 X10^3/uL (0.83-4.51); Absolute Neutrophil Count 4.4 X10^3/uL (2.0-7.7); Basophil# 0.02 X10^3/uL; Basophil% 0.3 % (0-1); Eosinophil# 0.01 X10^3/uL; Eosinophils% 0.1 % (0-5); Hematocrit 28.6 % (40-54); Lymphocyte # 0.99 X10^3/ul (0.83-4.51); Lymphocyte % 14.3 % (19-41); Mean Corp Hgb Conc 31.5 g/dL (32-36); Mean Corpuscular Hgb 31.8 pg (27.0-32.0); Mean Corpuscular Volume 101.1 fL (80-94); Mean Platelet Vol. 9.3 fl (6.2-12.0); Monocyte# 1.48 X10^3/uL; Monocyte% 21.4 % (0-10); NRBC Flagged by Analyzer 0 % (0-5); Neutrophil # 4.38 X10^3/uL (2.7-7.7); Neutrophil % 63.5 % (47-70); Platelet Count 390 K/mm3 (150-450); RBC Distribution Width CV 13.6 % (11.6-14.6); RBC Distribution Width SD 50.3 fl (35.1-43.9); Red Blood Count 2.83 M/mm3 (4.6-6.2); White Blood Count 6.9 K/mm3 (4.4-11.0)
[2022-12-01 18:28] LABS: Anion Gap 5 (5-15); BUN 8 mg/dL (7-18); BUN/Creat Ratio 9.7 RATIO (10-20); Calcium,Total 9.8 mg/dL (8.5-10.1); Chloride 103 mmol/L (98-107); Creatinine, Serum 0.82 mg/dL (0.70-1.30); EST Glomerular Filtration Rate 99 mL/min (>60); Est Glom Filt Rate - Afr Amer 119 mL/min (>60); Estimated Creatinine Clearance 66.38 ml/min; Glucose 99 mg/dL (74-106); Potassium 4.5 mmol/L (3.5-5.1); Sodium Level 139 mmol/L (136-145); Troponin-I HS (w/2H Reflex) 11 pg/mL (3.0-78.0)
[2022-12-01] MEDS: MethylPREDNISolone 125 MG/2 ML Vial IV (18:57)
[2022-12-01 19:02] VITALS: O2SAT 100
[2022-12-01] MEDS: Albuterol 2.5 MG/3 ML VIAL.NEB. INHALATION (19:09)
[2022-12-01] MEDS: Ipratropium/Albuterol Sulfate 3 ML AMPUL.NEB INHALATION (19:09)
[2022-12-01 19:10] VITALS: PULSE 86; RESP 26; O2SAT 100
[2022-12-01 20:03] LABS: Reflex Troponin-HS? (from REC) Y
[2022-12-01] MEDS: levoFLOXacin 500 MG Tablet PO (20:19)
[2022-12-01 20:21] VITALS: BP 104/80; PULSE 90; RESP 28; O2SAT 100
--- NOTE | 2022-12-01 20:47 | EDS_ITS ---
HPI History of Present Illness Chief Complaint: Shortness of Breath Narrative Narrative: 67-year-old male presenting with shortness of breath. He has history of squamous cell carcinoma recently diagnosed. He supposed to follow-up with oncology this next week. Sees pulmonology here at the hospital. Patient has history of COPD as well. He has been wheezing and shortness of breath. He is told he cannot take steroids so he has not been taking them. Told this because he is on a blood thinner. Denies black or bloody stools. He has not fevers, chills, cough. He is on his baseline oxygen 3 L. [facility] Medical History Acute exacerbation of chronic obstructive pulmonary disease Acute on chronic respiratory failure with hypoxemia Acute respiratory failure with hypoxemia BPH (benign prostatic hypertrophy) Bronchitis Chronic hypoxemic respiratory failure COPD (chronic obstructive pulmonary disease) Cough Dehydration Emphysema lung End stage chronic obstructive pulmonary disease History of alcohol abuse History of tobacco use Hyponatremia Mass of left lung Parainfluenza infection Shortness of breath Stage 4 very severe COPD by GOLD classification Throat irritation Tobacco dependence Wheezing Home Medications tamsulosin 0.4 mg capsule (Flomax) 0.4 mg PO DAILY prostate 08/02/20 [History Last Taken Unknown] roflumilast 500 mcg tablet (Daliresp) 500 mcg PO DAILY #90 tabs 07/31/21 [Rx Last Taken Unknown] fluticasone furoate 200 mcg-vilanterol 25 mcg/dose inhalation powder (Breo Ellipta) 1 inh inhalation DAILY #3 ea 07/25/22 [Rx Last Taken Unknown] tiotropium bromide 2.5 mcg/actuation mist for inhalation (Spiriva Respimat) 2 puff inhalation QDAY #3 ea 07/25/22 [Rx Last Taken Unknown] prednisone 10 mg tablet 10 mg PO QDAY #90 tabs 07/30/22 [Rx Last Taken Unknown] albuterol sulfate 1.25 mg/3 mL solution for nebulization 1.25 mg (3 mL) inhalation Q4H #600 mL 08/29/22 [Rx Last Taken Unknown] apixaban 5 mg tablet (Eliquis) 5 mg PO BID #60 tabs 10/29/22 [Rx Last Taken Unknown] azithromycin 250 mg tablet 250 mg PO .COMPLEX #36 tabs 10/29/22 [Rx Last Taken Unknown] metoprolol tartrate 50 mg tablet 75 mg PO BID #90 tabs 10/29/22 [Rx Last Taken Unknown] prednisone 20 mg tablet 40 mg PO DAILY #10 tabs 10/29/22 [Rx Last Taken Unknown] Handicap Placard #1 ea 11/25/22 [Rx Last Taken Unknown] levofloxacin 750 mg tablet 750 mg PO Q24H 7 days #7 tabs 11/27/22 [Rx Last Taken Unknown] albuterol sulfate 90 mcg/actuation aerosol inhaler (ProAir HFA) 2 puff inhalation Q6H PRN shortness of breath or wheezing #18 grams 11/28/22 [Rx Last Taken Unknown] levofloxacin 500 mg tablet 500 mg PO DAILY #6 tabs 12/01/22 [Rx Last Taken Unknown] prednisone 50 mg tablet 50 mg PO DAILY #4 tabs 12/01/22 [Rx Last Taken Unknown] Allergy/AdvReac Type Severity Reaction Status Date / Time No Known Allergies Allergy Verified 12/01/22 17:14 Family History Mother Diabetes Father Lung cancer Surgical History S/P aneurysm repair Social History Smoking Status: Former smoker quit date: 10/20/16 pack-years: 43 second hand exposure: Yes alcohol intake: never substance use type: does not use ROS ROS ED Constitutional Constitutional ED: Denies chills, fever(s) or sweats Eyes Eyes: Denies blurry vision or change in vision ENT ENT ED: Denies ear pain or sore throat Cardiovascular Cardiovascular: Denies chest pain, palpitations or racing heartbeat Respiratory/Chest Respiratory/Chest: Reports cough and dyspnea; Denies sputum Gastrointestinal Gastrointestinal: Denies abdominal pain, constipation, diarrhea, nausea or vomiting Genitourinary Genitourinary ED: Denies dysuria, hematuria or urinary frequency Musculoskeletal Musculoskeletal: Denies arthralgias, myalgias or neck pain Integumentary Denies abscess, Abrasions or rash Neurologic Neurologic: Denies headache(s), paresthesias or weakness Psychiatric Psychiatric: Denies anxiety, depression, suicidal ideation or suicidal thoughts Endocrine Endocrinology: Denies polydipsia or polyuria EXAM Physical Exam Const Vital Signs: 12/01/22 17:12 12/01/22 17:43 12/01/22 17:43 Temperature 97.2 F L Temperature Source Temporal Pulse Rate 92 Respiratory Rate 20 H Respiratory Effort Short of Breath Respiratory Depth Respiratory Pattern Tachypnea Blood Pressure 114/103 H Blood Pressure Mean 106 Pulse Ox 99 100 Oxygen Delivery Method Nasal Cannula Oxygen Flow Rate (L/min) 3 3 12/01/22 19:02 12/01/22 19:10 12/01/22 19:10 Temperature Temperature Source Pulse Rate 86 Respiratory Rate 26 H Respiratory Effort Short of Breath Respiratory Depth Normal Respiratory Pattern Tachypnea Tachypnea Blood Pressure Blood Pressure Mean Pulse Ox 100 100 Oxygen Delivery Method Nasal Cannula Nasal Cannula Oxygen Flow Rate (L/min) 2 2 12/01/22 20:21 Temperature Temperature Source Pulse Rate 90 Respiratory Rate 28 H Respiratory Effort Respiratory Depth Respiratory Pattern Blood Pressure 104/80 Blood Pressure Mean Pulse Ox 100 Oxygen Delivery Method Oxygen Flow Rate (L/min) Positive well nourished General Appearance ED: NAD; Negative for pallor HEENT Reports dry mucous membranes atraumatic Mouth ED: Yes dry mucous membranes Mouth: dry mucous membranes Eyes PERRL and EOMs intact bilaterally Neck no lymphadenopathy, supple and no meningeal signs Resp Auscultation: wheezes throughout Cardio regular rate Rate: tachycardic GI non-tender Neuro oriented x3 and CN's II-XII intact bilaterally Motor Exam: strength 5/5 throughout Psych mental status grossly normal Skin no wounds and skin turgor normal General Skin Exam: Negative for jaundice or pallor MDM MDM MDM Narrative Medical decision making narrative: 67-year-old male with recent diagnosis of squamous cell carcinoma and a history of COPD presenting with shortness of breath. He is wheezing on exam so he was given Solu-Medrol 125 and breathing treatments. Most likely diagnosis is COPD exacerbation however pneumonia is on the differential as well. Patient anticoagulated on Eliquis so unlikely be PE. Patient has not had any systemic signs or symptoms. Chest x-ray was obtained and on my interpretation there are no acute findings. There is a left upper lobe mass which is unchanged. The radiologist interprets this and agrees. EKG obtained my interpretation shows normal sinus rhythm at a ventricular rate of 86/min without sign of ischemic change. CBC to assess white blood cell count, hemoglobin,, platelets, differential. Hemoglobin stable at 9. He is in the range from 9-10 usually. No black or bloody stools. BMP to assess renal function electrolytes and is essentially normal. High-sensitivity troponin is 11. On reevaluation the patient is feeling improved subjectively. He still little tachypneic but he is speaking in full sentences. He thinks he can go home. I did review the medical record and saw that he had a sputum culture from a few days ago which was positive for Pseudomonas and sensitive to Levaquin so I will start him on Levaquin. He is given a prednisone burst as well. I recommended he follow-up with oncology. Return precautions discussed. Impression: 1. COPD exacerbation 2. Sputum culture positive for Pseudomonas 3. History of squamous cell carcinoma Lab Data Attestation: I reviewed the patient's lab results. Labs: Laboratory Results - last 24 hr 12/01/22 12/01/22 17:49 17:49 WBC 6.9 RBC 2.83 L Hgb 9.0 L Hct 28.6 L MCV 101.1 H MCH 31.8 MCHC 31.5 L RDW Std Deviation 50.3 H RDW Coeff of Fe 13.6 Plt Count 390 MPV 9.3 Immature Gran % (Auto) 0.400 Neut % (Auto) 63.5 Lymph % (Auto) 14.3 L [place] % (Auto) 21.4 H Eos % (Auto) 0.1 Baso % (Auto) 0.3 Absolute Neuts (auto) 4.4 Absolute Lymphs (auto) 0.99 Nucleated RBC % 0 Sodium 139 Potassium 4.5 Chloride 103 Carbon Dioxide 31.0 Anion Gap 5 BUN 8 Creatinine 0.82 Estim Creat Clear Calc 66.38 Est GFR (MDRD) Af Amer 119 Est GFR (MDRD) Non-Af 99 BUN/Creatinine Ratio 9.7 L Glucose 99 Calcium 9.8 Troponin I High Sens 11 Radiography Diagnostic Testing: Clinical Impression(s) from Imaging Studies Chest X-Ray 12/01/22 17:50 IMPRESSION: Stable portable chest x-ray with stable left upper lobe lung mass. Electronically Signed: Bruno Angel MD at 18:38 EST , Discharge Plan Triage Chief Complaint: Shortness of Breath ED Provider: Diego Owen Dx/Rx/DC Orders Prescriptions: New prednisone 50 mg tablet 50 mg PO DAILY Qty: 4 0RF levofloxacin 500 mg tablet 500 mg PO DAILY Qty: 6 0RF No Action tamsulosin [Flomax] 0.4 mg capsule 0.4 mg PO DAILY Daliresp 500 mcg tablet 500 mcg PO DAILY Qty: 90 3RF Breo Ellipta 200-25 mcg/dose blister with device 1 inh inhalation DAILY Qty: 3 3RF Spiriva Respimat 2.5 mcg/actuation mist 2 puff INHALATION QDAY Qty: 3 3RF (DME) Handicap Placard Qty: 1 0RF Rx Instructions: expires 11/25/2027 metoprolol tartrate 50 mg Tablet 75 mg PO BID Qty: 90 1RF prednisone 20 mg tablet 40 mg PO DAILY Qty: 10 0RF Eliquis 5 mg tablet 5 mg PO BID Qty: 60 1RF Rx Instructions: for nonvalvular Afib azithromycin 250 mg tablet 250 mg PO .COMPLEX Qty: 36 6RF Rx Instructions: 250 mg PO three times weekly, FRI WED FRI Hold while patient is taking Levaquin. prednisone 10 mg tablet 10 mg PO QDAY Qty: 90 3RF Hold Instructions: Hold while patient is prednisone burst therapy. albuterol sulfate 1.25 mg/3 mL solution for nebulization 1.25 mg inhalation Q4H Qty: 600 3RF Rx Instructions: J44.9 COPD R06.02 Shortness of Breath levofloxacin 750 mg tablet 750 mg PO Q24H 7 Days Qty: 7 0RF albuterol sulfate [ProAir HFA] 90 mcg/actuation HFA aerosol inhaler 2 puff inhalation Q6H PRN (Reason: shortness of breath or wheezing) Qty: 18 6RF Primary Care Provider: Caroline Tejeda Referrals: Caroline Tejeda PA [Primary Care Provider] - Disposition Disposition: Home, Self Care Discharge Date/Time: 12/01/22 20:22
== END 2022-12-01 20:22 | disposition home or self-care (01) ==
PROVIDERS: Emergency Provider Student in an Organized Health Care Education/Training Program; PCP Physician Assistant; Visit Provider Student in an Organized Health Care Education/Training Program
DX: J44.1 Chronic obstructive pulmonary disease with (acute) exacerbation (principal); C34.12 Malignant neoplasm of upper lobe, left bronchus or lung; B96.5 Pseudomonas (aeruginosa) (mallei) (pseudomallei) as the cause of diseases classified elsewhere; Z79.01 Long term (current) use of anticoagulants; Z87.891 Personal history of nicotine dependence
CPT/HCPCS: 71045; 80048; 84484; 85025; 93005; 94640; 96374; 99252; 99285; A4216; G0463

== ENCOUNTER → 2022-12-03 | Outpatient (CLI) | payer MEDICARE, MEDICAID, SELFPAY ==
--- NOTE | 2022-12-03 10:00 | PET_ITS ---
EXAMINATION: FDG PET-CT INDICATIONS: A 67-year-old male with a history of carcinoma of the lung presenting for initial staging examination. COMPARISON EXAMINATION: None available INDEX LESION SIZE SUV INTERPRETATION Left upper lung, left upper lobe 43.4 mm 11.7 Fulfills quantitative criteria for viable neoplasm. Rectum-rectal vault 27.1 mm 10.0 Warrants further investigation with direct visualization or CT of the abdomen and pelvis secondary to the quantitative degree of uptake. Left iliac wing 3.4 max Fulfills quantitative criteria for viable neoplasm with single point technique. NON-INDEX LESION SIZE SUV INTERPRETATION Carinal level mediastinum to the left of midline, left thoracic perihilum 2.9 max Quantitative criteria for malignant transformation are not fulfilled. TECHNIQUE: Following the intravenous administration of 13.45 mCi of F-18 deoxyglucose via the right hand, multiplanar image acquisitions of the head, neck, chest, abdomen and pelvis to level of mid-thigh, lower extremities obtained at one hour post radiopharmaceutical administration contemporaneously interpreted with the current CT of the head, neck, chest, abdomen and pelvis to level of mid-thigh, lower extremities dated 12/02/22 via coregistration reveal: SERUM GLUCOSE LEVEL: 108 mg/dl. HEIGHT: 66 inches. WEIGHT: 125 lbs. FINDINGS: Head/Neck: There is no evidence of abnormal increased glucose metabolism in the pharyngeal mucosal space, parapharyngeal space, bilateral-lateral and anterior neck, hypopharynx and distribution of the laryngeal structures. The visualized portion of the cerebral cortical-subcortical structures demonstrate symmetric and preserved glucose metabolism. CHEST: Facilitated FDG uptake is noted in the left upper lung field, left upper lobe anteromedially with a calculated maximum standard uptake value of 11.7. The maximum axial diameter of the metabolic, morphologic abnormality is 43.4 mm. Mild increased radiopharmaceutical concentration is defined in the carinal level mediastinum to the left mid lung and left thoracic perihilum. The calculated maximum standard uptake value is 2.9. Quantitative criteria for viable neoplasm are not fulfilled. Prominent tracer uptake is noted in the descending thoracic aorta commensurate with activated leukocytes associate with atherosclerotic plaque formation. Pertinent chest CT findings are as follows. Bilateral axillary and additional mediastinal soft tissue densities reveal no evidence of increased radiopharmaceutical concentration. Emphysematous changes are defined in the bilateral upper and mid lung zones. There is atherosclerotic calcification defined in the thoracic aorta without evidence of dilatation-aneurysm formation. Coronary arterial calcification is observed. There are no additional parenchymal densities-nodules defined in the right and left hemithorax with quantitatively significant increased FDG uptake. Abdomen/Pelvis: Enhanced radiopharmaceutical concentration is defined in the region of the rectum-rectal vault. The calculated maximum standard uptake value is 10.0. The maximum axial diameter is 27.1 mm. Normal physiologic distribution of the radiopharmaceutical is apparent in the hepatic (2.5) and splenic parenchyma, both renal units, bladder and visualized intestinal tract. Diffuse radiopharmaceutical concentration is noted in all four quadrants of the abdomen and pelvis. Pertinent abdomen and pelvis CT findings are as follows. There is atherosclerotic calcification defined in the abdominal aorta without evidence of dilatation-aneurysm formation. Pelvic arterial calcification is observed. A fat containing left inguinal hernia is noted. Calcified phlebolith formation is encountered in the left lower hemipelvis. Calcification is defined within the prostate gland. Colonic diverticulosis is noted without evidence of diverticulitis. Skeletal: There is an increase in radiopharmaceutical defined in the left anterior iliac wing with a calculated maximum standard uptake value of 3.4. Degenerative changes are noted in the cervical, thoracic and lumbar spine. There is no visualized sclerotic-lytic changes manifest on review of the appendicular-axial skeletal structures. PET/PET/CT Tumor Base -Thigh Init IMPRESSION: 1. ABNORMAL EXAMINATION INDICATIVE OF MALIGNANT-VIABLE NEOPLASM. 2. Increased radiopharmaceutical concentration noted in the left upper lung field, left upper lobe fulfills quantitative criteria for neoplasia. (Hernandez et al, Annals of Internal Medicine, 138:724, 2003). 3. Enhanced tracer uptake manifest in the carinal level mediastinum to the left of the midline and left thoracic perihilum does not fulfill quantitative criteria for malignant transformation. 4. The increase in radiopharmaceutical concentration manifest in the rectum-rectal vault, in view of the quantitative degree of uptake, direct visualization and/or CT of the abdomen and pelvis with oral and intravenous contrast is recommended. (Justice et al, Journal of Nuclear Medicine, 30:O173, 2003) 5. The increase in radiopharmaceutical concentration defined in the left anterior iliac wing fulfills quantitative criteria for viable osseous neoplasia. (Krishna et al, Clinical Nuclear Medicine, 29:161, 2004). Electronic Signature Jairo Black, D.O. Accurate Quantification of SUVs for this report are calculated using the exclusive [employer]. ([place]. Patent No. [id number] B2 [phone] [place] patent [phone]). Standardization and correction of the FDG SUV metric via [employer] technology allow for vendor non-specific objective quantitative examination comparison and optimization of the sensitivity and specificity of the FDG PET-CT examination. Electronically Signed: Jairo Zarate, at 16:50 EST ,
== END | disposition home or self-care (01) ==
LOC: ONC 09:35
PROVIDERS: PCP Physician Assistant; Referring Provider Nurse Practitioner Acute Care; Visit Provider Nurse Practitioner Acute Care
DX: C34.12 Malignant neoplasm of upper lobe, left bronchus or lung (principal)
CPT/HCPCS: 78815; A9552

== ENCOUNTER 2022-12-05 14:37 | Inpatient (IN) | payer MEDICARE, MEDICAID, SELFPAY ==
[2022-12-05] VITALS (24 sets, daily range): BP systolic 88–128; BP diastolic 66–97; PULSE 90–136; RESP 10–37; TEMP 36.3–37.1; O2SAT 92–100; BMI 19.1; BMI 17.8
[2022-12-05 14:56] LABS: Allen Test Positive; Base Excess 3 mmol/L (-2 to +2); Bicarbonate 30.1 mmol/L (22-26); Blood Gas Specimen Type ART; Comment 16/8; FI02 80; Mode BiLevel; O2 Delivery Device BiPAP; PEEP 8; PO2 399 mmHG (75-100); RR 12; SITE L Radial; SO2 100 % (95-99); Total Carbon Dioxide 32 mmol/L; pCO2 66.7 mmHg (35-45); pH 7.26 (7.35-7.45)
[2022-12-05] MEDS: Ipratropium/Albuterol Sulfate 3 ML AMPUL.NEB INHALATION ×3 (15:04→22:51)
--- NOTE | 2022-12-05 15:06 | ED.VIS.DYS ---
HPI History of Present Illness Chief Complaint: Shortness of Breath Narrative Narrative: Patient presents with shortness of breath he arrives via squad, he was placed on CPAP due to severe respiratory distress. He is normally on 3 L of oxygen and for the past 2 days he has been feeling much worse she was seen a few days ago and sent home with steroids. He does have a history of COPD, a lung mass, and he is on 3 L. He is denying fevers or chills. He has a cough which is the same as always. [facility] Medical History (Updated 12/05/22 @ 16:[address] David Iniguez MD) Acute exacerbation of chronic obstructive pulmonary disease Acute on chronic respiratory failure with hypoxemia Acute respiratory failure with hypoxemia BPH (benign prostatic hypertrophy) Bronchitis Chronic hypoxemic respiratory failure COPD (chronic obstructive pulmonary disease) Cough Dehydration Emphysema lung End stage chronic obstructive pulmonary disease History of alcohol abuse History of tobacco use Hyponatremia Mass of left lung Parainfluenza infection Shortness of breath Stage 4 very severe COPD by GOLD classification Throat irritation Tobacco dependence Wheezing Home Medications tamsulosin 0.4 mg capsule (Flomax) 0.4 mg PO DAILY prostate 08/02/20 [History Last Taken Unknown] roflumilast 500 mcg tablet (Daliresp) 500 mcg PO DAILY #90 tabs 07/31/21 [Rx Last Taken Unknown] fluticasone furoate 200 mcg-vilanterol 25 mcg/dose inhalation powder (Breo Ellipta) 1 inh inhalation DAILY #3 ea 07/25/22 [Rx Last Taken Unknown] tiotropium bromide 2.5 mcg/actuation mist for inhalation (Spiriva Respimat) 2 puff inhalation QDAY #3 ea 07/25/22 [Rx Last Taken Unknown] prednisone 10 mg tablet 10 mg PO QDAY #90 tabs 07/30/22 [Rx Last Taken Unknown] albuterol sulfate 1.25 mg/3 mL solution for nebulization 1.25 mg (3 mL) inhalation Q4H #600 mL 08/29/22 [Rx Last Taken Unknown] apixaban 5 mg tablet (Eliquis) 5 mg PO BID #60 tabs 10/29/22 [Rx Last Taken Unknown] azithromycin 250 mg tablet 250 mg PO .COMPLEX #36 tabs 10/29/22 [Rx Last Taken Unknown] metoprolol tartrate 50 mg tablet 75 mg PO BID #90 tabs 10/29/22 [Rx Last Taken Unknown] prednisone 20 mg tablet 40 mg PO DAILY #10 tabs 10/29/22 [Rx Last Taken Unknown] Handicap Placard #1 ea 11/25/22 [Rx Last Taken Unknown] albuterol sulfate 90 mcg/actuation aerosol inhaler (ProAir HFA) 2 puff inhalation Q6H PRN shortness of breath or wheezing #18 grams 11/28/22 [Rx Last Taken Unknown] levofloxacin 500 mg tablet 500 mg PO DAILY #6 tabs 12/01/22 [Rx Last Taken Unknown] prednisone 50 mg tablet 50 mg PO DAILY #4 tabs 12/01/22 [Rx Last Taken Unknown] Allergy/AdvReac Type Severity Reaction Status Date / Time No Known Allergies Allergy Verified 12/05/22 14:42 Family History Mother Diabetes Father Lung cancer Surgical History S/P aneurysm repair Social History Smoking Status: Former smoker quit date: 10/20/16 pack-years: 43 second hand exposure: Yes alcohol intake: never substance use type: does not use ROS ROS ED ROS Narrative Past medical history: Reviewed Medications: Reviewed Social history: Noncontributory Review of systems: All systems negative except as indicated General: No fever Eyes: No visual changes ENT: No upper airway congestion, normal voice Neck: No neck pain Cardiovascular: No chest pain Respiratory: Dyspnea as in HPI Gastrointestinal: No abdominal pain, nausea vomiting or diarrhea Skin: No rash EXAM Physical Exam Narrative Exam Narrative: Physical exam General: Patient has a BiPAP, he does appear in some distress Head: Normocephalic, Atraumatic Eyes: Conjunctiva not pale ENT: Slightly dry mucous membranes Neck: Supple, Nontender, No lymphadenopathy Cardiovascular: Regular tachycardia. No obvious murmur Respiratory: He is tachypneic, he has diminished breath sounds bilaterally. Some retractions are present. Abdomen: Soft, Nontender, Nondistended Back: Nontender, Normal Inspection. Negative for: CVA tenderness Extremities: Nontender, No edema Skin: Normal color, No rash Neurological: Alert, Normal Strength, Normal Sensation Const Vital Signs: 12/05/22 14:38 12/05/22 14:42 12/05/22 15:11 Temperature 97.9 F Temperature Source Temporal Pulse Rate 136 H 129 H Respiratory Rate 37 H 32 H Respiratory Effort Short of Breath Accessory Muscle Use Respiratory Pattern Tachypnea Tachypnea Blood Pressure 105/70 Blood Pressure Mean 81 Pulse Ox 100 Oxygen Delivery Method Bi-pap Bi-pap Fraction of Inspired Oxygen (FIO2) 12/05/22 14:37 12/05/22 15:05 12/05/22 15:26 Temperature Temperature Source Pulse Rate 132 H 128 H Respiratory Rate 33 H 35 H Respiratory Effort Respiratory Pattern Tachypnea Blood Pressure Blood Pressure Mean Pulse Ox 100 97 Oxygen Delivery Method Fraction of Inspired Oxygen (FIO2) 100 35 25 12/05/22 15:30 12/05/22 15:40 Temperature 98.7 F Temperature Source Temporal Pulse Rate 127 H 125 H Respiratory Rate 31 H 31 H Respiratory Effort Respiratory Pattern Blood Pressure 91/79 Blood Pressure Mean 84 Pulse Ox 95 94 Oxygen Delivery Method Bi-pap Fraction of Inspired Oxygen (FIO2) MDM MDM Lab Data Labs: Laboratory Results - last 24 hr 12/05/22 12/05/22 12/05/22 14:40 14:40 14:40 WBC 16.6 H RBC 3.07 L Hgb 9.5 L Hct 31.5 L MCV 102.6 H MCH 30.9 MCHC 30.2 L RDW Std Deviation 51.4 H RDW Coeff of Fe 13.6 Plt Count 415 MPV 9.3 Immature Gran % (Auto) 1.100 H Neut % (Auto) 82.1 H Lymph % (Auto) 4.4 L [place] % (Auto) 12.3 H Eos % (Auto) 0.0 Baso % (Auto) 0.1 Absolute Neuts (auto) 13.6 H Absolute Lymphs (auto) 0.72 L Nucleated RBC % 0 Differential Comment SCANNED Diff Path Review May foll Sodium 142 Potassium 4.2 Chloride 107 Carbon Dioxide 30.0 Anion Gap 5 BUN 17 Creatinine 0.89 Estim Creat Clear Calc 60.34 Est GFR (MDRD) Af Amer 109 Est GFR (MDRD) Non-Af 90 BUN/Creatinine Ratio 19.1 Glucose 162 H Lactic Acid 2.1 H* Calcium 9.3 Troponin I High Sens 405 H* ABG Data ABG results: ABG 12/05/22 14:47 Specimen Type ART Sample Site L Radial pH 7.26 L Bicarbonate Actual 30.1 H Total CO2 32 Base Excess 3 H O2 Saturation 100 H O2 % 80 ABG pCO2 66.7 H ABG pO2 399 H* Marco Test Positive Respiration Rate 12 O2 Delivery Device BiPAP Vent Mode BiLevel POC PEEP 8 Crit Call To/Read Back Yes Blood Gas Notified Whom janeen Clinical Comments 04/06 Radiography Diagnostic Testing: Clinical Impression(s) from Imaging Studies Chest X-Ray 12/05/22 15:43 IMPRESSION: No acute findings in the chest. Electronically Signed: Leon Moctezuma MD at 16:08 EST , EKG Initial EKG: Comments: Sinus rhythm with a rate of 135. Normal NE and QTc intervals. Nonspecific changes throughout likely rate related. Otherwise unremarkable EKG Interpreted by emergency doctor Treatment and Re-Evaluation Narrative: A. Problems addressed: Patient has respiratory failure BiPAP, respiratory acidosis with hypercapnia and hypoxia likely secondary to COPD. He also has lung cancer. His condition is getting worse. I did try to talk to him about end-of-life issues at this time he does want chest compressions but he would like not to get intubated unless absolutely needed. He is found to have elevated troponin, however this is likely NSTEMI type II and just needs treatment for COPD. I did discuss with Dr. East about the NSTEMI. I will admit him. I talked to the hospitalist B. Amount and/or complexity of the data (2 out of 3) 1. I reviewed prior outpatient inpatient charts CBC CMP troponin read by me 2. Independent interpretation of test Telemetry: Sinus rhythm with a rate in the 130s without ectopy. 3. Discussion of management with cardiology see above as well as the hospitalist. C. Risk of complications and/or morbidity See above Critical Care Time Critical care time (excluding procedures): 30-74 minutes and - (30 minutes. This includes time at the bedside, time discussing with consultants, arranging admission, discussing DNR care.) Discharge Plan Triage Chief Complaint: Shortness of Breath ED Provider: David Iniguez Dx/Rx/DC Orders Clinical Impression: Hypercarbia, Respiratory failure, Lung cancer, Hypoxia, Respiratory acidosis, Acute non-ST elevation myocardial infarction (NSTEMI) Prescriptions: No Action tamsulosin [Flomax] 0.4 mg capsule 0.4 mg PO DAILY Daliresp 500 mcg tablet 500 mcg PO DAILY Qty: 90 3RF Breo Ellipta 200-25 mcg/dose blister with device 1 inh inhalation DAILY Qty: 3 3RF Spiriva Respimat 2.5 mcg/actuation mist 2 puff INHALATION QDAY Qty: 3 3RF (DME) Handicap Placard Qty: 1 0RF Rx Instructions: expires 11/25/2027 metoprolol tartrate 50 mg Tablet 75 mg PO BID Qty: 90 1RF prednisone 20 mg tablet 40 mg PO DAILY Qty: 10 0RF Eliquis 5 mg tablet 5 mg PO BID Qty: 60 1RF Rx Instructions: for nonvalvular Afib azithromycin 250 mg tablet 250 mg PO .COMPLEX Qty: 36 6RF Rx Instructions: 250 mg PO three times weekly, FRI WED FRI Hold while patient is taking Levaquin. prednisone 50 mg tablet 50 mg PO DAILY Qty: 4 0RF levofloxacin 500 mg tablet 500 mg PO DAILY Qty: 6 0RF prednisone 10 mg tablet 10 mg PO QDAY Qty: 90 3RF Hold Instructions: Hold while patient is prednisone burst therapy. albuterol sulfate 1.25 mg/3 mL solution for nebulization 1.25 mg inhalation Q4H Qty: 600 3RF Rx Instructions: J44.9 COPD R06.02 Shortness of Breath albuterol sulfate [ProAir HFA] 90 mcg/actuation HFA aerosol inhaler 2 puff inhalation Q6H PRN (Reason: shortness of breath or wheezing) Qty: 18 6RF Primary Care Provider: Caroline Tejeda Referrals: Caroline Tejeda PA [Primary Care Provider] - Disposition Disposition: Acute Care Hospital [facility]
[2022-12-05] MEDS: Albuterol 2.5 MG/3 ML VIAL.NEB. INHALATION ×3 (15:07)
[2022-12-05] MEDS: MethylPREDNISolone 125 MG/2 ML Vial IV (15:29)
[2022-12-05 15:33] LABS: Absolute Lymphocyte Count 0.72 X10^3/uL (0.83-4.51); Absolute Neutrophil Count 13.6 X10^3/uL (2.0-7.7); Basophil# 0.01 X10^3/uL; Basophil% 0.1 % (0-1); Hematocrit 31.5 % (40-54); Hemoglobin 9.5 g/dL (13.0-16.5); Lymphocyte # 0.72 X10^3/ul (0.83-4.51); Lymphocyte % 4.4 % (19-41); Mean Corp Hgb Conc 30.2 g/dL (32-36); Mean Corpuscular Hgb 30.9 pg (27.0-32.0); Mean Corpuscular Volume 102.6 fL (80-94); Mean Platelet Vol. 9.3 fl (6.2-12.0); Monocyte# 2.03 X10^3/uL; Monocyte% 12.3 % (0-10); NRBC Flagged by Analyzer 0 % (0-5); Neutrophil % 82.1 % (47-70); POSITIVE DIFFERENTIAL YES; Platelet Count 415 K/mm3 (150-450); RBC Distribution Width CV 13.6 % (11.6-14.6); RBC Distribution Width SD 51.4 fl (35.1-43.9); Red Blood Count 3.07 M/mm3 (4.6-6.2); White Blood Count 16.6 K/mm3 (4.4-11.0)
[2022-12-05 15:40] LABS: Lactic Acid 2.1 mmol/L (0.4-1.9)
--- NOTE | 2022-12-05 15:40 | ED.RN ---
LAB CALLED CRITICAL OF LACTIC ACID 2.1. DR MANRIQUEZ AWARE
[2022-12-05 15:42] LABS: Differential Indicated SCAN CRITERIA MET
--- NOTE | 2022-12-05 15:43 | RAD_ITS ---
EXAM: XR CHEST, 1 VIEW CLINICAL INDICATION: sob TECHNIQUE: Frontal view of the chest. This report was created using [employer] report generation technology. COMPARISON: 4days ago. FINDINGS: LUNGS AND PLEURAL SPACES: The lung tamayo are hyperexpanded. No pneumothorax. No effusion. HEART: Unremarkable. Cardiac silhouette not enlarged. MEDIASTINUM: Central airways and mediastinal contour are unremarkable. BONES/JOINTS: Right rib fractures are healed. SOFT TISSUES: Unremarkable. RAD/Chest 1 View (Portable) IMPRESSION: No acute findings in the chest. Electronically Signed: Leon Moctezuma MD at 16:08 EST ,
[2022-12-05 16:03] LABS: Anion Gap 5 (5-15); BUN 17 mg/dL (7-18); BUN/Creat Ratio 19.1 RATIO (10-20); Calcium,Total 9.3 mg/dL (8.5-10.1); Chloride 107 mmol/L (98-107); Creatinine, Serum 0.89 mg/dL (0.70-1.30); EST Glomerular Filtration Rate 90 mL/min (>60); Est Glom Filt Rate - Afr Amer 109 mL/min (>60); Estimated Creatinine Clearance 60.34 ml/min; Glucose 162 mg/dL (74-106); Potassium 4.2 mmol/L (3.5-5.1); Sodium Level 142 mmol/L (136-145); Troponin-I HS 405 pg/mL (3.0-78.0)
[2022-12-05 16:06] LABS: Differential Comment SCANNED
[2022-12-05 16:18] LABS: BNP,B-Type NATRIURETIC PEPTIDE 249.6 pg/mL (0-100)
[2022-12-05] MEDS: 0.9% Normal Saline 1,000 ML 1200 ML IV (16:22)
--- NOTE | 2022-12-05 16:24 | PCM.HP.STD ---
HPI - General General Date of Admission: 12/05/22 Date of Service: 12/05/22 Chief Complaint: Shortness of breath- 3 days HPI Narrative PAOLO JAUREGUI, is a 67 M who presents with the above. His past medical history of stage IV COPD, chronic hypoxic respiratory failure, on 4 L of oxygen at baseline, recent diagnosis of squamous cell lung CA, yet to establish with [place] cancer who comes in with a 3-day history of progressive shortness of breath. Patient is a former smoker and admits to having progressive shortness of breath, inability to do his activities of daily living. Vitals in the ED showed blood pressure 105/70, heart rate 132, respiratory 23, temperature 97.9 F, oxygen sat 100% on BiPAP. WBC 16.6, hemoglobin 9.5, platelets 415, ABG showed pH 7.26, PCO2 66.7, BMP is unremarkable. BNP is 249.9. Troponin 405. Lactic acid is 2.1. Chest x-ray shows hyperinflated lungs. COUNTS INCLUDE 234 BEDS AT THE [facility] Medical History Acute exacerbation of chronic obstructive pulmonary disease Acute on chronic respiratory failure with hypoxemia Acute respiratory failure with hypoxemia BPH (benign prostatic hypertrophy) Bronchitis Chronic hypoxemic respiratory failure COPD (chronic obstructive pulmonary disease) Cough Dehydration Emphysema lung End stage chronic obstructive pulmonary disease History of alcohol abuse History of tobacco use Hyponatremia Mass of left lung Parainfluenza infection Shortness of breath Stage 4 very severe COPD by GOLD classification Throat irritation Tobacco dependence Wheezing Home Medications tamsulosin 0.4 mg capsule (Flomax) 0.4 mg PO QHS prostate 08/02/20 [History Last Taken 12/04/22] Handicap Placard #1 ea 11/25/22 [Rx Last Taken Unknown] albuterol sulfate 90 mcg/actuation aerosol inhaler (ProAir HFA) 2 puff inhalation Q6H PRN shortness of breath or wheezing #18 grams 11/28/22 [Rx Last Taken 12/05/22] albuterol sulfate 1.25 mg/3 mL solution for nebulization 1.25 mg inhalation Q4H SHORTNESS OF BREATH 12/05/22 [History Last Taken 12/05/22] apixaban 5 mg tablet (Eliquis) 5 mg PO BID BLOOD THINNER 12/05/22 [History Last Taken 12/05/22] azithromycin 250 mg tablet 250 mg PO MOWEFR ANTIBIOTIC 12/05/22 [History Last Taken Unknown] ferrous sulfate 325 mg (65 mg iron) tablet (iron) 325 mg PO DAILY SUPPLEMENT 12/05/22 [History Last Taken 12/05/22] fluticasone furoate 200 mcg-vilanterol 25 mcg/dose inhalation powder (Breo Ellipta) 1 inh inhalation DAILY COPD 12/05/22 [History Last Taken 12/05/22] ipratropium 20 mcg-albuterol 100 mcg/actuation mist for inhalation (Combivent Respimat) 1 puff inhalation Q6H PRN Shortness Of Breath 12/05/22 [History Last Taken 12/05/22] levofloxacin 500 mg tablet 500 mg PO DAILY ANTIBIOTIC 12/05/22 [History Last Taken 12/05/22] metoprolol tartrate 50 mg tablet 75 mg PO BID BLOOD PRESSURE 12/05/22 [History Last Taken 12/05/22] prednisone 10 mg tablet 10 mg PO DAILY STEROID 12/05/22 [History Last Taken 12/05/22] prednisone 50 mg tablet 50 mg PO DAILY STEROID 12/05/22 [History Last Taken 12/05/22] roflumilast 500 mcg tablet (Daliresp) 500 mcg PO DAILY COPD 12/05/22 [History Last Taken 12/05/22] tiotropium bromide 2.5 mcg/actuation mist for inhalation (Spiriva Respimat) 2 puff inhalation QDAY COPD 12/05/22 [History Last Taken 12/05/22] Allergy/AdvReac Type Severity Reaction Status Date / Time No Known Allergies Allergy Verified 12/05/22 14:42 Family History Mother Diabetes Father Lung cancer Surgical History S/P aneurysm repair Social History Smoking Status: Former smoker quit date: 10/20/16 pack-years: 43 second hand exposure: Yes alcohol intake: never substance use type: does not use ROS ROS Narrative Unable to complete due to patient being on BiPAP and in severe respiratory distress with use of accessory muscles of respiration and tripoding Vital Signs Vital Signs Vital Signs: 12/05/22 14:38 12/05/22 14:42 12/05/22 15:11 Temperature 97.9 F Temperature Source Temporal Pulse Rate 136 H 129 H Respiratory Rate 37 H 32 H Respiratory Effort Short of Breath Accessory Muscle Use Respiratory Pattern Tachypnea Tachypnea Blood Pressure 105/70 Blood Pressure Mean 81 Pulse Ox 100 Oxygen Delivery Method Bi-pap Bi-pap Fraction of Inspired Oxygen (FIO2) 12/05/22 14:37 12/05/22 15:05 12/05/22 15:26 Temperature Temperature Source Pulse Rate 132 H 128 H Respiratory Rate 33 H 35 H Respiratory Effort Respiratory Pattern Tachypnea Blood Pressure Blood Pressure Mean Pulse Ox 100 97 Oxygen Delivery Method Fraction of Inspired Oxygen (FIO2) 100 35 25 12/05/22 15:30 12/05/22 15:40 12/05/22 15:46 Temperature 98.7 F Temperature Source Temporal Pulse Rate 127 H 125 H 117 H Respiratory Rate 31 H 31 H 25 H Respiratory Effort Respiratory Pattern Blood Pressure 91/79 102/74 Blood Pressure Mean 84 84 Pulse Ox 95 94 92 Oxygen Delivery Method Bi-pap Fraction of Inspired Oxygen (FIO2) 12/05/22 16:01 12/05/22 16:15 12/05/22 16:20 Temperature 98.2 F Temperature Source Temporal Pulse Rate 119 H 120 H 115 H Respiratory Rate 25 H 28 H 31 H Respiratory Effort Respiratory Pattern Blood Pressure 92/66 114/75 Blood Pressure Mean 75 87 Pulse Ox 94 95 95 Oxygen Delivery Method Fraction of Inspired Oxygen (FIO2) Weight Weight: 53.7 kg Body Mass Index (BMI) 19.1 Physical Exam Narrative Physical exam: General: Alert, Oriented x3, Cooperative, cachectic, on BiPAP, in severe respiratory distress with accessory use of muscles, tripoding HEENT: Atraumatic Oral: Moist Mucosa Neck: Supple Lungs: Diminished to auscultation Cardiovascular: HS I+II, regular, no murmurs Abdomen: Bowel Sounds Present, Soft, Non Tender Extremities: No edema Skin: No rashes, No breakdown Neurological: Grossly intact Psych/Mental Status: Appropriate Results Lab / Micro Data Result Diagrams: 12/05/22 14:40 12/05/22 14:40 Labs: Laboratory Results - last 24 hr 12/05/22 14:40: WBC 16.6 H, RBC 3.07 L, Hgb 9.5 L, Hct 31.5 L, MCV 102.6 H, MCH 30.9, MCHC 30.2 L, RDW Std Deviation 51.4 H, RDW Coeff of Fe 13.6, Plt Count 415, MPV 9.3, Immature Gran % (Auto) 1.100 H, Neut % (Auto) 82.1 H, Lymph % (Auto) 4.4 L, [place] % (Auto) 12.3 H, Eos % (Auto) 0.0, Baso % (Auto) 0.1, Absolute Neuts (auto) 13.6 H, Absolute Lymphs (auto) 0.72 L, Nucleated RBC % 0, Differential Comment SCANNED, Diff Path Review February12/05/22 14:40: Sodium 142, Potassium 4.2, Chloride 107, Carbon Dioxide 30.0, Anion Gap 5, BUN 17, Creatinine 0.89, Estim Creat Clear Calc 60.34, Est GFR (MDRD) Af Amer 109, Est GFR (MDRD) Non-Af 90, BUN/Creatinine Ratio 19.1, Glucose 162 H, Calcium 9.3, Troponin I High Sens 405 H* 12/05/22 14:40: B-Natriuretic Peptide 249.6 H 12/05/22 14:40: Lactic Acid 2.1 H* Micro: Microbiology 12/05/22 15:21 Nasal Secretion SARS-CoV-2 Antigen (Rapid) - Final ABG Data ABG results: ABG 12/05/22 14:47 Specimen Type ART Sample Site L Radial pH 7.26 L Bicarbonate Actual 30.1 H Total CO2 32 Base Excess 3 H O2 Saturation 100 H O2 % 80 ABG pCO2 66.7 H ABG pO2 399 H* Marco Test Positive Respiration Rate 12 O2 Delivery Device BiPAP Vent Mode BiLevel POC PEEP 8 Crit Call To/Read Back Yes Blood Gas Notified Whom janeen Clinical Comments 04/06 Radiology Impression Chest X-Ray 12/05/22 15:43 IMPRESSION: No acute findings in the chest. Electronically Signed: Leon Moctezuma MD at 16:08 EST , Assessment & Plan Assessment/Plan (1) Respiratory failure: (2) Lung cancer: (3) Hypercarbia: PLAN: Plan 1. Acute respiratory failure secondary to acute COPD exacerbation Patient is currently on BiPAP, with evidence of severe respiratory distress, accessory use of muscles of respiration, tripoding Initial ABG showed pH of 7.25, PCO2 was 66.7, repeat ABG showed pH of 7.31, PCO2 of 52.9 We will continue on BiPAP, treatment for acute COPD exacerbation 2. Acute severe COPD exacerbation, in a patient with stage IV Gold COPD Respiratory panel is pending. Rapid COVID-19 antigen test is negative. History of recent Pseudomonas aeruginosa infection Continue IV Solu-Medrol, scheduled ipratropium, IV vancomycin and Zosyn Check sputum culture 3. Recently diagnosed Squamous cell lung CA, yet to establish care with [place] [facility], appointment upcoming Patient will need to follow-up with appointment 4. Lactic acidosis secondary to #1, will trend 5. Elevated troponin likely secondary to demand ischemia from #1 We will trend troponin, continue Eliquis 6. Paroxysmal atrial fibrillation, hypertension, admitting EKG shows sinus tachycardia Will continue metoprolol, Eliquis 7. DVT PPx- on Eliquis I discussed and explained in details the various types of CODE STATUS-full code, DNR CCA, DNR CC. Patient initially said that he had been intubated before and does not want to be intubated. Upon further discussion, he elected that he wanted full code and to be intubated in the event that his pulmonary status got worse. He stated that his power of attorney lawyer for healthcare was his daughter, Odalys. Time spent discussing CODE STATUS 20 minutes Charges/Coding Addendum Addendum: Total time spent: 80 minutes of which more > 50% was spent in reviewing patient's chart, laboratory investigations, imaging, discussing with emergency physician, taking history and physical examining patient and going over plan of care with patient at the bedside. Visit Charges Inpatient E&M: 58081 Init Hosp L3 Procedures Hospitalists Procedures: 98502 Advncd Care Plan 30 Min
[2022-12-05 16:26] LABS: Base Excess 1 mmol/L (-2 to +2); Bicarbonate 26.7 mmol/L (22-26); Blood Gas Specimen Type ART; FI02 25; O2 Delivery Device BiPAP; PEEP 7; PO2 82 mmHG (75-100); SITE R Radial; SO2 95 % (95-99); Total Carbon Dioxide 28 mmol/L; Vt 400; pCO2 52.9 mmHg (35-45); pH 7.31 (7.35-7.45)
--- NOTE | 2022-12-05 18:24 | PCM.RX.CS ---
Consult Pharmacy has been consulted to manage selected antiobiotic: Vancomycin Type of Consult: New start Suspected Infection: Pneumonia Labs: Sodium 142 mmol/L (136-145) 12/05/22 14:40 Potassium 4.2 mmol/L (3.5-5.1) 12/05/22 14:40 Chloride 107 mmol/L (98-107) 12/05/22 14:40 Carbon Dioxide 30.0 mmol/L (21.0-32.0) 12/05/22 14:40 Anion Gap 5 (5-15) 12/05/22 14:40 BUN 17 mg/dL (7-18) 12/05/22 14:40 Creatinine 0.89 mg/dL (0.70-1.30) 12/05/22 14:40 Est GFR (MDRD) Af Amer 109 mL/min (>60) 12/05/22 14:40 Est GFR (MDRD) Non-Af 90 mL/min (>60) 12/05/22 14:40 BUN/Creatinine Ratio 19.1 RATIO (10-20) 12/05/22 14:40 Glucose 162 mg/dL (74-106) H 12/05/22 14:40 Microbiology: Microbiology 12/05/22 15:21 Nasal Secretion SARS-CoV-2 Antigen (Rapid) - Final Goal Trough: 15-20 mcg/mL Pharmacy Plan for Drug Dosing: NEW START IV VANCOMYCIN Consulting Physician: Dr. Bustamante Indication: COPD exacerbation Goal Trough: 15-20 SrCr: 0.89 CrCl: 60 mL/min Comments: Initial dose of 750mg IV x1 ordered and administered in ED 12/05/22 @1529 Vancomycin Dose: 500mg IV Q12hr to start 12/06/22 @0300 Pending Level: 12/07/22 @0230, prior to 4th total dose per protocol Pharmacy Service will continue to monitor and adjust dosing as required.
[2022-12-05] MEDS: Metoprolol Tartrate 50 MG Tablet 75 MG PO (18:35)
[2022-12-05 18:54] LABS: Troponin-I HS 685 pg/mL (3.0-78.0)
[2022-12-05 19:25] LABS: Reflex Lactate? Y
[2022-12-05 21:42] LABS: Lactic Acid 4.7 mmol/L (0.4-1.9); Troponin-I HS 746 pg/mL (3.0-78.0)
[2022-12-05] MEDS: APIXABAN 5 MG TABLET PO (21:48)
[2022-12-05] MEDS: Tamsulosin HCl 0.4 MG Capsule PO (21:48)
[2022-12-05] MEDS: 0.9% Saline Lock 10 ML Syringe IV (22:01)
--- NOTE | 2022-12-05 22:20 | RAD_ITS ---
EXAM: XR CHEST, 1 VIEW CLINICAL INDICATION: Elevated lactic TECHNIQUE: Frontal view of the chest. This report was created using [employer] report generation technology. COMPARISON: Same day examination performed at 3:39 PM. FINDINGS: No consolidation. No pleural effusion or enlarged. Dense masslike opacity redemonstrated at the medial aspect of the right upper lobe measuring 6.9 x 3.7 cm. This may represent neoplasm or pneumonia. Recommend CT for further investigation Stable appearance of the the bones including nonunited fracture of the right mid clavicle. RAD/Chest 1 View (Portable) IMPRESSION: Dense masslike opacity redemonstrated at the medial aspect of the right upper lobe measuring 6.9 x 3.7 cm. This may represent neoplasm or pneumonia. Recommend CT for further investigation Electronically Signed: William Ricci MD at 23:17 EST ,
[2022-12-05 22:45] LABS: Allen Test Positive; Base Excess -3 mmol/L (-2 to +2); Bicarbonate 23.2 mmol/L (22-26); Blood Gas Specimen Type ART; FI02 25; O2 Delivery Device BiPAP; PEEP 8; PO2 101 mmHG (75-100); SITE R Radial; SO2 97 % (95-99); Total Carbon Dioxide 25 mmol/L; Vt 400; pCO2 46.3 mmHg (35-45); pH 7.31 (7.35-7.45)
[2022-12-05 22:47] LABS: Anion Gap 11 (5-15); BUN 22 mg/dL (7-18); BUN/Creat Ratio 20.2 RATIO (10-20); Calcium,Total 9.2 mg/dL (8.5-10.1); Chloride 109 mmol/L (98-107); Creatinine, Serum 1.09 mg/dL (0.70-1.30); EST Glomerular Filtration Rate 71 mL/min (>60); Est Glom Filt Rate - Afr Amer 86 mL/min (>60); Estimated Creatinine Clearance 45.96 ml/min; Glucose 171 mg/dL (74-106); Potassium 4.7 mmol/L (3.5-5.1); Sodium Level 143 mmol/L (136-145)
[2022-12-06] VITALS (19 sets, daily range): BP systolic 105–131; BP diastolic 68–99; PULSE 86–154; RESP 14–35; TEMP 36.5–36.7; O2SAT 100
[2022-12-06 01:41] LABS: Lactic Acid 4.4 mmol/L (0.4-1.9)
[2022-12-06] MEDS: Vancomycin IV 500 MG/100 ML BAG 100 MG IV ×2 (03:42→15:59)
[2022-12-06 04:30] LABS: Reflex Lactate? Y
[2022-12-06 05:20] LABS: Lactic Acid 2.4 mmol/L (0.4-1.9)
[2022-12-06 05:45] LABS: Reflex Lactate? N
[2022-12-06] MEDS: 0.9% Saline Lock 10 ML Syringe IV ×2 (05:45→14:08)
[2022-12-06 06:07] LABS: Absolute Lymphocyte Count 0.77 X10^3/uL (0.83-4.51); Absolute Neutrophil Count 7.1 X10^3/uL (2.0-7.7); Hematocrit 29.8 % (40-54); Hemoglobin 8.8 g/dL (13.0-16.5); Lymphocyte # 0.77 X10^3/ul (0.83-4.51); Lymphocyte % 9.3 % (19-41); Mean Corp Hgb Conc 29.5 g/dL (32-36); Mean Corpuscular Hgb 30.7 pg (27.0-32.0); Mean Corpuscular Volume 103.8 fL (80-94); Mean Platelet Vol. 9.6 fl (6.2-12.0); Monocyte# 0.37 X10^3/uL; Monocyte% 4.5 % (0-10); NRBC Flagged by Analyzer 0 % (0-5); Neutrophil % 85.5 % (47-70); Platelet Count 277 K/mm3 (150-450); RBC Distribution Width CV 13.5 % (11.6-14.6); RBC Distribution Width SD 51.9 fl (35.1-43.9); Red Blood Count 2.87 M/mm3 (4.6-6.2); White Blood Count 8.3 K/mm3 (4.4-11.0)
[2022-12-06 07:01] LABS: ALB/GLOB Ratio 0.7 RATIO (0.9-2.4); AST(SGOT) 69 U/L (15-37); Alanine Aminotransfer ALT/SGPT 45 U/L (16-61); Albumin, Serum 2.9 g/dL (3.2-5.0); Alkaline Phosphatase 63 U/L (45-117); Anion Gap 8 (5-15); BUN 22 mg/dL (7-18); Calcium,Total 9.1 mg/dL (8.5-10.1); Chloride 110 mmol/L (98-107); EST Glomerular Filtration Rate 79 mL/min (>60); Est Glom Filt Rate - Afr Amer 95 mL/min (>60); Globulin 4.4 g/dL (2.2-4.2); Glucose 156 mg/dL (74-106); Potassium 4.5 mmol/L (3.5-5.1); Protein, Total 7.3 g/dL (6.4-8.2); Sodium Level 144 mmol/L (136-145)
[2022-12-06] MEDS: Ipratropium/Albuterol Sulfate 3 ML AMPUL.NEB INHALATION ×4 (07:22→19:03)
[2022-12-06] MEDS: Ferrous Sulfate 325 MG Tablet PO (08:25)
[2022-12-06] MEDS: Azithromycin 250 MG Tablet PO (08:25)
[2022-12-06] MEDS: APIXABAN 5 MG TABLET PO ×2 (08:25→22:03)
[2022-12-06] MEDS: Metoprolol Tartrate 50 MG Tablet 75 MG PO (08:25)
--- NOTE | 2022-12-06 08:46 | CON.PCM.CC_ITS ---
Assessment & Plan Assessment/Plan (1) Mass of left lung: PLAN: Plan RECOMMENDATIONS: 1. Supplemental oxygen as tolerated to maintain saturations at or above 90%. 2. Likely discontinue antibiotics if negative at 48 hours 3. Continue scheduled bronchodilators and IV steroids. 4. Encourage incentive spirometer use and mobilize patient as tolerated. 5. Consider oncology consult IMPRESSIONS: 1. End-stage COPD with exacerbation Unclear etiology of repeat hospitalization. Patient is obviously short of breath, but there are no infiltrates on chest x-ray. Patient does have a malignancy with tachycardia and tachypnea, so PE would be a consideration, but patient has been on Eliquis therapy making this less likely. Patient is on steroids and bronchodilators. Antibiotics are reasonable, but if cultures are negative at 48 hours these can likely be discontinued. Patient with advanced COPD with an FEV1 of 21% in 2017. The likelihood of liberation from the ventilator if intubated is very low. 2. Squamous cell lung carcinoma Patient recently discharged and told of his squamous cell lung carcinoma diagnosis. Recent PET scan is suggesting possible metastasis. Patient has not been seen by oncology at this point and is concerned about not having his visit. Okay to consult oncology from my perspective. Patient is currently a full code despite new diagnosis of lung cancer with an FEV1 of 21% in 2017. 3. Chronic hypoxemic respiratory failure Continue 3 L/min of supplemental oxygen, per home regimen. Given CO2 retention on presentation, would recommend keeping saturations between 90 and 94%. Patient is on triple therapy at home. HPI Consult Data Date of Consult: 12/06/22 HPI Narrative Reason for Consultation: Respiratory distress HPI Narrative: PAOLO JAUREGUI is a 67 M, with past medical history listed below, who presents to [facility] on 12/05/2022 secondary to severe respiratory distress. Patient reportedly called EMS when he was unable to catch his breath despite using his baseline 3 L/min of supplemental oxygen. Patient reportedly had been recently hospitalized and diagnosed with a new lung cancer. Patient states he continues to have a cough that is only rarely productive. Patient states if I could cough it up I would feel so much better. In the ER, patient was afebrile, but tachycardic at 136 beats/min and tachypneic at 37 breaths/min. Patient was initially placed on BiPAP secondary to concerns for respiratory distress. Laboratory data showed a white blood cell count of 16.6, hemoglobin of 9.5 and a platelet count of 415. Chemistries were significant for a bicarbonate of 30 with normal renal function and a slightly elevated glucose at 162, lactate of 2.1 and troponin at 405. An ABG was obtained showing an acute respiratory acidosis with partial metabolic compensation and significant elevation of PO2 while on BiPAP. Chest x-ray showed no acute findings, but patient does have a right upper lobe mass. Patient was admitted to the floor for further evaluation. Patient is on anticoagulation at baseline secondary to nonvalvular A-fib with Eliquis. Patient was recently on 20 mg tablets of prednisone secondary to her recent hospitalization. Patient was recently diagnosed with squamous cell lung carcinoma, but has not been evaluated by the oncologist at this time. Patient states he has been using Mucinex at home, but has concerns about the cost. Patient does feel if I could just get the sputum out I would feel so much better. Review of systems otherwise negative from a constitutional, HEENT, respiratory, cardiovascular, GI, genitourinary, musculoskeletal, skin, neurologic, psychiatric and hematologic system unless stated above. [facility] Medical History Acute exacerbation of chronic obstructive pulmonary disease Acute on chronic respiratory failure with hypoxemia Acute respiratory failure with hypoxemia BPH (benign prostatic hypertrophy) Bronchitis Chronic hypoxemic respiratory failure COPD (chronic obstructive pulmonary disease) Cough Dehydration Emphysema lung End stage chronic obstructive pulmonary disease History of alcohol abuse History of tobacco use Hyponatremia Mass of left lung Parainfluenza infection Shortness of breath Stage 4 very severe COPD by GOLD classification Throat irritation Tobacco dependence Wheezing Home Medications tamsulosin 0.4 mg capsule (Flomax) 0.4 mg PO QHS prostate 08/02/20 [History Last Taken 12/04/22] Handicap Placard #1 ea 11/25/22 [Rx Last Taken Unknown] albuterol sulfate 90 mcg/actuation aerosol inhaler (ProAir HFA) 2 puff inhalation Q6H PRN shortness of breath or wheezing #18 grams 11/28/22 [Rx Last Taken 12/05/22] albuterol sulfate 1.25 mg/3 mL solution for nebulization 1.25 mg inhalation Q4H SHORTNESS OF BREATH 12/05/22 [History Last Taken 12/05/22] apixaban 5 mg tablet (Eliquis) 5 mg PO BID BLOOD THINNER 12/05/22 [History Last Taken 12/05/22] azithromycin 250 mg tablet 250 mg PO MOWEFR ANTIBIOTIC 12/05/22 [History Last Taken Unknown] ferrous sulfate 325 mg (65 mg iron) tablet (iron) 325 mg PO DAILY SUPPLEMENT 12/05/22 [History Last Taken 12/05/22] fluticasone furoate 200 mcg-vilanterol 25 mcg/dose inhalation powder (Breo Ellipta) 1 inh inhalation DAILY COPD 12/05/22 [History Last Taken 12/05/22] ipratropium 20 mcg-albuterol 100 mcg/actuation mist for inhalation (Combivent Respimat) 1 puff inhalation Q6H PRN Shortness Of Breath 12/05/22 [History Last Taken 12/05/22] levofloxacin 500 mg tablet 500 mg PO DAILY ANTIBIOTIC 12/05/22 [History Last Taken 12/05/22] metoprolol tartrate 50 mg tablet 75 mg PO BID BLOOD PRESSURE 12/05/22 [History Last Taken 12/05/22] prednisone 10 mg tablet 10 mg PO DAILY STEROID 12/05/22 [History Last Taken 12/05/22] prednisone 50 mg tablet 50 mg PO DAILY STEROID 12/05/22 [History Last Taken 12/05/22] roflumilast 500 mcg tablet (Daliresp) 500 mcg PO DAILY COPD 12/05/22 [History Last Taken 12/05/22] tiotropium bromide 2.5 mcg/actuation mist for inhalation (Spiriva Respimat) 2 puff inhalation QDAY COPD 12/05/22 [History Last Taken 12/05/22] Allergy/AdvReac Type Severity Reaction Status Date / Time No Known Allergies Allergy Verified 12/05/22 14:42 Family History Mother Diabetes Father Lung cancer Surgical History S/P aneurysm repair Social History Smoking Status: Former smoker quit date: 10/20/16 pack-years: 43 second hand exposure: Yes alcohol intake: never substance use type: does not use ROS ROS Narrative See HPI Physical Exam Const alert Constitutional Narrative: On nasal cannula during my evaluation, weaned from 4 L (100% sat) to 2 L (98% sat) General Appearance: cooperative, in distress Positive for moderate (Conver sational dyspnea noted) and frail HEENT normocephalic, head/scalp atraumatic and moist oral mucous membranes Eyes PERRL, EOMs intact bilaterally and conjunctivae normal Neck supple General: trachea midline Chest Chest Narrative: Increased AP diameter. Resp normal respiratory effort Auscultation: diminished lung sounds; Negative for rales, rhonchi or wheezes Cardio regular rhythm, S1 normal heart sound, S2 normal heart sound, no murmurs, no rub and no gallops Rate: tachycardic GI normal to inspection, nondistended, normoactive bowel sounds Extremity no clubbing, cyanosis or edema Skin no rashes or lesions noted Neuro CN's II-XII intact bilaterally, moves all extremities and no focal motor deficits Psych Activity / Motor Behavior: restless Mood & Affect: anxious Medical Records Data Attestation: I reviewed the patient's medical records Lab / Micro Data Attestation: I reviewed the patient's lab results. Result Diagrams: 12/06/22 04:44 12/06/22 04:44 Labs: Laboratory Results - last 24 hr 12/05/22 14:40: WBC 16.6 H, RBC 3.07 L, Hgb 9.5 L, Hct 31.5 L, MCV 102.6 H, MCH 30.9, MCHC 30.2 L, RDW Std Deviation 51.4 H, RDW Coeff of Fe 13.6, Plt Count 415, MPV 9.3, Immature Gran % (Auto) 1.100 H, Neut % (Auto) 82.1 H, Lymph % (Auto) 4.4 L, Lagrange % (Auto) 12.3 H, Eos % (Auto) 0.0, Baso % (Auto) 0.1, Absolute Neuts (auto) 13.6 H, Absolute Lymphs (auto) 0.72 L, Nucleated RBC % 0, Differential Comment SCANNED, Diff Path Review February12/05/22 14:40: Sodium 142, Potassium 4.2, Chloride 107, Carbon Dioxide 30.0, Anion Gap 5, BUN 17, Creatinine 0.89, Estim Creat Clear Calc 60.34, Est GFR (MDR D) Af Amer 109, Est GFR (MDRD) Non-Af 90, BUN/Creatinine Ratio 19.1, Glucose 162 H, Calcium 9.3, Troponin I High Sens 405 H* 12/05/22 14:40: B-Natriuretic Peptide 249.6 H 12/05/22 14:40: Lactic Acid 2.1 H* 12/05/22 18:05: Troponin I High Sens 685 H* 12/05/22 20:55: Troponin I High Sens 746 H* 12/05/22 20:55: Lactic Acid 4.7 H* 12/05/22 20:55: Sodium 143, Potassium 4.7, Chloride 109 H, Carbon Dioxide 23.0, Anion Gap 11, BUN 22 H, Creatinine 1.09, Estim Creat Clear Calc 45.96, Est GFR (MDRD) Af Amer 86, Est GFR (MDRD) Non-Af 71, BUN/Creatinine Ratio 20.2 H, Glucose 171 H, Calcium 9.2 12/06/22 00:25: Lactic Acid 4.4 H* 12/06/22 04:44: WBC 8.3, RBC 2.87 L, Hgb 8.8 L, Hct 29.8 L, MCV 103.8 H, MCH 30.7, MCHC 29.5 L, RDW Std Deviation 51.9 H, RDW Coeff of Fe 13.5, Plt Count 277, MPV 9.6, Immature Gran % (Auto) 0.700, Neut % (Auto) 85.5 H, Lymph % (Auto) 9.3 L, Lagrange % (Auto) 4.5, Eos % (Auto) 0.0, Baso % (Auto) 0.0, Absolute Neuts (auto) 7.1, Absolute Lymphs (auto) 0.77 L, Nucleated RBC % 0 12/06/22 04:44: Sodium 144, Potassium 4.5, Chloride 110 H, Carbon Dioxide 26.0, Anion Gap 8, BUN 22 H, Creatinine 1.00, Estim Creat Clear Calc 50.10, Est GFR (MDRD) Af Amer 95, Est GFR (MDRD) Non-Af 79, BUN/Creatinine Ratio 22.0 H, Glucose 156 H, Calcium 9.1, Total Bilirubin 0.80, AST 69 H, ALT 45, Alkaline Phosphatase 63, Total Protein 7.3, Albumin 2.9 L, Globulin 4.4 H, Albumin/Globulin Ratio 0.7 L 12/06/22 04:44: Lactic Acid 2.4 H* Micro: Microbiology 12/05/22 15:21 Mucosa - Nasopharyngeal Respiratory Panel (PCR) - Final 12/05/22 15:21 Nasal Secretion SARS-CoV-2 Antigen (Rapid) - Final ABG Data ABG results: ABG 12/05/22 12/05/22 12/05/22 14:47 16:15 22:39 Specimen Type ART ART ART Sample Site L Radial R Radial R Radial pH 7.26 L 7.31 L 7.31 L Bicarbonate Actual 30.1 H 26.7 H 23.2 Total CO2 32 28 25 Base Excess 3 H 1 -3 L O2 Saturation 100 H 95 97 O2 % 80 25 25 ABG pCO2 66.7 H 52.9 H 46.3 H ABG pO2 399 H* 82 101 H Marco Test Positive Positive Respiration Rate 12 O2 Delivery Device BiPAP BiPAP BiPAP Vent Mode BiLevel Tidal Volume 400 400 POC PEEP 8 7 8 Crit Call To/Read Back Yes Blood Gas Notified Whom janeen Clinical Comments 04/06 Avaps 400. 25 fio2 Radiology Impression Chest X-Ray 12/05/22 15:43 IMPRESSION: No acute findings in the chest. Electronically Signed: Loen Moctezuma MD at 16:08 EST , Chest X-Ray 12/05/22 22:20 IMPRESSION: Dense masslike opacity redemonstrated at the medial aspect of the right upper lobe measuring 6.9 x 3.7 cm. This may represent neoplasm or pneumonia. Recommend CT for further investigation Electronically Signed: William Ricci MD at 23:17 EST , ADDENDUM: 12/05/22 2342 IMPRESSION: Dense masslike opacity redemonstrated at the medial aspect of the right upper lobe measuring 6.9 x 3.7 cm. This may represent neoplasm or pneumonia. Recommend CT for further investigation Electronically Signed: William Ricci MD at 23:17 EST , ADDENDUM: 12/05/22 5184 IMPRESSION: Dense masslike opacity redemonstrated at the medial aspect of the right upper lobe measuring 6.9 x 3.7 cm. This may represent neoplasm or pneumonia. Recommend CT for further investigation N.B. : Stacy Canela RN, confirmed on 12/05/2022 23:37:09 (ET) that the healthcare facility has received the radiology report. Electronically Signed: William Ricci MD at 23:17 EST , Charges/Coding Visit Charges Inpatient E&M: 56424 Init Hosp L3
[2022-12-06] MEDS: guaiFENesin 1,200 MG Tablet 1200 MG PO ×2 (10:32→22:03)
--- NOTE | 2022-12-06 12:05 | CASEMGMT ---
RN YARON Face to Face with patient for initial transition planning/care coordination assessment. RN CM introduced self and role at [facility]. Patient lying in bed, alert and oriented. Patient willing to participate in assessment and is able to answer all questions appropriately. Care providers, pharmacy, and demographics verified. Patient wishes to discharge home, denies need for home health at this time. Patient states he has no further needs or concerns at this time. CM to follow for discharge planning needs that may arise. PCP: OFELIA Tejeda Specialists: Luis Hernández life science technician Preferred Pharmacy: [facility] Insurance: [employer] Prescription Benefit: yes Living Will/HPOA: none, daughter working on HPOA LNOK: daughter Living Arrangements: Patient lives alone in a single story home with 2 steps and railing to enter the home. Patient states he is independent at home. Transportation: self, daughter DME/HHC: Patient states he has shower chair, grab bars, walker, nebulizer, pulse ox, trilogy, and home oxygen at 3lpm continuously. Patient denies previous HHC or SNF. Disposition Plan: Patient to discharge home with family support and follow-up plans in place. Will monitor for increase oxygen needs. Milena COLE, RN, CM
[2022-12-06 12:41] LABS: Pathologist Review Reviewed
[2022-12-06] MEDS: Ensure Plus High Protein 120 ML LIQUID PO ×3 (14:07→22:13)
[2022-12-06] MEDS: Metoprolol Tartrate 25 MG Tablet PO (16:17)
--- NOTE | 2022-12-06 20:44 | PCM.PN.HOSP ---
Reason for Visit Reason for Visit: Diagnoses Malignant neoplasm of unspecified part of unspecified bronchus or lung (12/05/22) Respiratory failure, unspecified, unspecified whether with hypoxia or hypercapnia (12/05/22) Other abnormalities of breathing (12/05/22) Other nonspecific abnormal finding of lung field (12/05/22) Subjective Subjective Intermittent episodes of needing to use BiPAP, still feels very short of breath Objective Data Objective Data Vital Signs: Vital Signs Temp Pulse Resp BP Pulse Ox O2 Del Method O2 Flow Rate 98.0 F 119 H 24 H 114/78 100 Nasal Cannula 2 12/06/22 17:00 12/06/22 19:00 12/06/22 19:00 12/06/22 17:00 12/06/22 19:00 12/06/22 19:00 12/06/22 19:00 FiO2 25 12/06/22 15:56 Oxygen Flow Rate (L/min) 2 Oxygen Delivery Method Nasal Cannula Weight: 110 lb 7.225 oz Body Mass Index (BMI) 17.8 Intake & Output: Intake and Output for Last 24 Hours 12/05/22 12/06/22 12/07/22 03:59 03:59 03:59 Intake Total 1535 / 1535 1460 / 1460 Output Total 50 / 50 400 / 400 Balance 1485 / 1485 1060 / 1060 Medical Nutrition Assessment Dietitian: Malnutrition Criteria Met Start: 12/06/22 12:48 Freq: Status: Active Protocol: Document 12/06/22 13:03 (Rec: 12/06/22 13:03 [id number]) Nutrition Malnutrition Evidence of Malnutrition Exists Yes Malnutrition (severe): Chronic Evidenced By Suboptimal Energy Intake ( Severe),Weight Loss (Severe), Physical Changes (Severe) Clinical Problem Chronic Disease or Condition Related Malnutrition Etiology chronic severe malnutrition related to inadequate oral intake w/ increased energy needs d/t lung cancer Signs/Symptoms as evidenced by estimated PO intake meeting <50% of estimated energy needs x 1-2 months; unintentional wt loss of 14.5#/12% x 1-2 months; severe muscle wasting and fat loss evident per physical exam in orbital, clavicle, temporal and acromion areas; BMI 17.8 Status Active Problem Recommendation Dietitian Recommendations/Changes will liberalize diet to regular; 120mL ensure plus high protein 4x/day w/ medpass for additional calories/ protein if consumed. Lab / Micro Data Result Diagrams: 12/06/22 04:44 12/06/22 04:44 Labs: Laboratory Results - last 24 hr 12/05/22 14:40: Diff Path Review Reviewed 12/05/22 20:55: Troponin I High Sens 746 H* 12/05/22 20:55: Lactic Acid 4.7 H* 12/05/22 20:55: Sodium 143, Potassium 4.7, Chloride 109 H, Carbon Dioxide 23.0, Anion Gap 11, BUN 22 H, Creatinine 1.09, Estim Creat Clear Calc 45.96, Est GFR (MDRD) Af Amer 86, Est GFR (MDRD) Non-Af 71, BUN/Creatinine Ratio 20.2 H, Glucose 171 H, Calcium 9.2 12/06/22 00:25: Lactic Acid 4.4 H* 12/06/22 04:44: WBC 8.3, RBC 2.87 L, Hgb 8.8 L, Hct 29.8 L, MCV 103.8 H, MCH 30.7, MCHC 29.5 L, RDW Std Deviation 51.9 H, RDW Coeff of Fe 13.5, Plt Count 277, MPV 9.6, Immature Gran % (Auto) 0.700, Neut % (Auto) 85.5 H, Lymph % (Auto) 9.3 L, Atkinson % (Auto) 4.5, Eos % (Auto) 0.0, Baso % (Auto) 0.0, Absolute Neuts (auto) 7.1, Absolute Lymphs (auto) 0.77 L, Nucleated RBC % 0 12/06/22 04:44: Sodium 144, Potassium 4.5, Chloride 110 H, Carbon Dioxide 26.0, Anion Gap 8, BUN 22 H, Creatinine 1.00, Estim Creat Clear Calc 50.10, Est GFR (MDRD) Af Amer 95, Est GFR (MDRD) Non-Af 79, BUN/Creatinine Ratio 22.0 H, Glucose 156 H, Calcium 9.1, Total Bilirubin 0.80, AST 69 H, ALT 45, Alkaline Phosphatase 63, Total Protein 7.3, Albumin 2.9 L, Globulin 4.4 H, Albumin/Globulin Ratio 0.7 L 12/06/22 04:44: Lactic Acid 2.4 H* Micro: Microbiology 12/05/22 15:21 Mucosa - Nasopharyngeal Respiratory Panel (PCR) - Final 12/05/22 15:21 Nasal Secretion SARS-CoV-2 Antigen (Rapid) - Final ABG Data ABG results: ABG 12/05/22 22:39 Specimen Type ART Sample Site R Radial pH 7.31 L Bicarbonate Actual 23.2 Total CO2 25 Base Excess -3 L O2 Saturation 97 O2 % 25 ABG pCO2 46.3 H ABG pO2 101 H Marco Test Positive O2 Delivery Device BiPAP Tidal Volume 400 POC PEEP 8 Clinical Comments Avaps 400. 25 fio2 Radiography Diagnostic Testing: Radiology Impression Chest X-Ray 12/05/22 22:20 IMPRESSION: Dense masslike opacity redemonstrated at the medial aspect of the right upper lobe measuring 6.9 x 3.7 cm. This may represent neoplasm or pneumonia. Recommend CT for further investigation Electronically Signed: William Ricci MD at 23:17 EST Reading Location ID and State: [facility] [employer] Tel , Service support , ADDENDUM: 12/05/22 2342 IMPRESSION: Dense masslike opacity redemonstrated at the medial aspect of the right upper lobe measuring 6.9 x 3.7 cm. This may represent neoplasm or pneumonia. Recommend CT for further investigation Electronically Signed: William Ricci MD at 23:17 EST Reading Location ID and State: [facility] [employer] Tel , Service support , ADDENDUM: 12/05/22 2344 IMPRESSION: Dense masslike opacity redemonstrated at the medial aspect of the right upper lobe measuring 6.9 x 3.7 cm. This may represent neoplasm or pneumonia. Recommend CT for further investigation N.B. : Stacy Canela RN, confirmed on 12/05/2022 23:37:09 (ET) that the healthcare facility has received the radiology report. Electronically Signed: William Ricci MD at 23:17 EST Reading Location ID and State: [facility] / [place] Tel , Service support , Physical Exam Narrative General: Alert, Oriented x3, Cooperative, No apparent distress HEENT: Atraumatic, PERRLA, EOMI, Normocephalic Oral: Moist Mucosa Neck: Supple, No JVD Lungs: Diminished, poor air movement, No rhonchi, No wheeze, No rales, tachypneic and tripoding Cardiovascular: Tachycardic, Regular Rhythm, Normal S1, Normal S2, No murmurs Abdomen: Soft, Non Tender, Non-Distended, No Hepato-splenomegaly Extremities: No edema, Capillary Refill Less than 3 Seconds Skin: No rashes, No breakdown Musculoskeletal: No Tenderness to Palpation of Joints or Extremities Neurological: Moves all extremities, sensation intact Psych/Mental Status: Anxious Assessment & Plan Assessment/Plan (1) Respiratory failure: (2) Lung cancer: (3) Hypercarbia: PLAN: Plan 1. Acute hypoxic and hypercapnic respiratory failure secondary to acute COPD exacerbation/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 He has a stage IV COPD ? COVID test is negative respiratory panel is negative ? Continue with steroids and antibiotics, sputum cultures pending ? Appreciate pulmonology assistance ?BiPAP as needed ? Oncology is aware he is in the hospital and will see him soon as he is discharged 2. Paroxysmal A-fib/HTN/HLD ? We will increase his metoprolol as he has been tachycardic though he did have some improvement of his heart rate when he was placed back on BiPAP this was discussed with him. ? Continue with Yo 3. Iron deficiency anemia ? Continue with his iron replacement DVT: Eliquis Charges/Coding Visit Charges Inpatient E&M: 85294 Subs Hosp L2
[2022-12-06] MEDS: Tamsulosin HCl 0.4 MG Capsule PO (22:03)
[2022-12-06] MEDS: Metoprolol Tartrate 100 MG Tablet PO (22:03)
[2022-12-07] VITALS (15 sets, daily range): BP systolic 94–117; BP diastolic 66–93; PULSE 75–140; RESP 10–27; TEMP 36.4–36.7; O2SAT 26–100
[2022-12-07 03:33] LABS: Vancomycin, Trough Level 9.6 ug/mL (5.0-15.0)
--- NOTE | 2022-12-07 04:00 | PCM.RX.CS ---
Consult Type of Consult: Follow-up Prior Doses of Antibiotics Received/Current Regimen: Medications Vancomycin HCl (Vancomycin) 1,000 mg in 200 mls @ 200 mls/hr IV Q12H STEVE Discontinued Medications Vancomycin HCl () 500 mg in 100 mls @ 100 mls/hr IV Q12H STEVE Last Admin: 12/07/22 03:53 Dose: Not Given Labs: Sodium 144 mmol/L (136-145) 12/06/22 04:44 Potassium 4.5 mmol/L (3.5-5.1) 12/06/22 04:44 Chloride 110 mmol/L (98-107) H 12/06/22 04:44 Carbon Dioxide 26.0 mmol/L (21.0-32.0) 12/06/22 04:44 Anion Gap 8 (5-15) 12/06/22 04:44 BUN 22 mg/dL (7-18) H 12/06/22 04:44 Creatinine 1.00 mg/dL (0.70-1.30) 12/06/22 04:44 Est GFR (MDRD) Af Amer 95 mL/min (>60) 12/06/22 04:44 Est GFR (MDRD) Non-Af 79 mL/min (>60) 12/06/22 04:44 BUN/Creatinine Ratio 22.0 RATIO (10-20) H 12/06/22 04:44 Glucose 156 mg/dL (74-106) H 12/06/22 04:44 Vancomycin Trough 9.6 ug/mL (5.0-15.0) 12/07/22 02:35 Microbiology: Microbiology 12/05/22 15:21 Mucosa - Nasopharyngeal Respiratory Panel (PCR) - Final 12/05/22 15:21 Nasal Secretion SARS-CoV-2 Antigen (Rapid) - Final Weight used for dosin.1 kg Estimated Creatinine Clearance: 50 Goal Trough: 15-20 mcg/mL Pharmacy Plan for Drug Dosing: Vancomycin trough level was 9.6, below the target range of 15-20. Per aminoglycoside dosing calculator, a new dose of 1000mg q12h will give an estimated trough of 17.9. The new dose will be initiated, and another level will be drawn prior to fourth dose of new regimen. Pharmacy Service will continue to monitor and adjust dosing as required. Follow-Up Labs: Trough Vancomycin Labs to be done on [date and time ordered]: 12/08/22 @4083
[2022-12-07] MEDS: Vancomycin IV 1,000 MG/200 ML BAG 200 MG IV (04:03)
[2022-12-07] MEDS: 0.9% Saline Lock 10 ML Syringe IV ×2 (06:05→20:50)
[2022-12-07] MEDS: Ipratropium/Albuterol Sulfate 3 ML AMPUL.NEB INHALATION ×3 (07:07→19:25)
[2022-12-07] MEDS: guaiFENesin 1,200 MG Tablet 1200 MG PO ×2 (08:46→20:48)
[2022-12-07] MEDS: Metoprolol Tartrate 100 MG Tablet PO ×2 (08:46→23:32)
[2022-12-07] MEDS: APIXABAN 5 MG TABLET PO ×2 (08:47→20:48)
[2022-12-07] MEDS: ROFLUMILAST 250 MCG TABLET 500 MCG PO (08:47)
[2022-12-07] MEDS: Ferrous Sulfate 325 MG Tablet PO (08:50)
[2022-12-07 10:57] LABS: M R Staph aureus DNA By PCR Negative (Negative); Probe Check PASS; Specimen Processing Control PASS
--- NOTE | 2022-12-07 11:34 | PCM.PN.INT ---
Assessment & Plan Assessment/Plan (1) Mass of left lung: PLAN: Plan RECOMMENDATIONS: 1. Supplemental oxygen as tolerated to maintain saturations at or above 90%. 2. Check labs in a.m. discontinue vancomycin 3. Continue scheduled bronchodilators and IV steroids. 4. Encourage incentive spirometer use and mobilize patient as tolerated. 5. Consider oncology consult IMPRESSIONS: 1. End-stage COPD with exacerbation Unclear etiology of repeat hospitalization. Patient is obviously short of breath, but there are no infiltrates on chest x-ray. Patient does have a malignancy with tachycardia and tachypnea, so PE would be a consideration, but patient has been on Eliquis therapy making this less likely. Patient is on steroids and bronchodilators. We will discontinue vancomycin as MRSA screen was negative. Patient with advanced COPD with an FEV1 of 21% in 2017. The likelihood of liberation from the ventilator if intubated is very low. 2. Squamous cell lung carcinoma Patient recently discharged and told of his squamous cell lung carcinoma diagnosis. Recent PET scan is suggesting possible metastasis. Patient has not been seen by oncology at this point and is concerned about not having his visit. Okay to consult oncology from my perspective. Patient is currently a full code despite new diagnosis of lung cancer with an FEV1 of 21% in 2017. Treatment options will be severely limited given patient's functional status. 3. Chronic hypoxemic respiratory failure Continue 3 L/min of supplemental oxygen, per home regimen. Given CO2 retention on presentation, would recommend keeping saturations between 90 and 94%. Patient is on triple therapy at home. Subjective Subjective Patient did okay overnight. Patient frustrated about continued dyspnea. Patient believes that Mucinex helps, but does not resolve dyspnea problem. Patient has not had a significant increase in FiO2 requirements. Patient is asking if oncology would be able to see him during this hospitalization. Objective Data Objective Data Vital Signs: Vital Signs Temp Pulse Resp BP Pulse Ox O2 Del Method O2 Flow Rate 36.6 C 125 H 18 117/84 H 100 Nasal Cannula 3 12/07/22 08:41 12/07/22 08:46 12/07/22 08:41 12/07/22 08:41 12/07/22 08:41 12/07/22 08:51 12/07/22 08:51 FiO2 25 12/07/22 04:50 Oxygen Flow Rate (L/min) 3 Oxygen Delivery Method Nasal Cannula Weight: 50.1 kg Body Mass Index (BMI) 17.8 Intake & Output: Intake and Output for Last 24 Hours 12/05/22 12/06/22 12/07/22 23:59 23:59 23:59 Intake Total 1365 / 1485 1630 / 1630 300 / 300 Output Total 450 / 600 350 / 350 Balance 1365 / 1435 1180 / 1030 -50 / -50 Medical Nutrition Assessment Dietitian: Malnutrition Criteria Met Start: 12/06/22 12:48 Freq: Status: Active Protocol: Document 12/06/22 13:03 AG (Rec: 12/06/22 13:03 [id number]) Nutrition Malnutrition Evidence of Malnutrition Exists Yes Malnutrition (severe): Chronic Evidenced By Suboptimal Energy Intake ( Severe),Weight Loss (Severe), Physical Changes (Severe) Clinical Problem Chronic Disease or Condition Related Malnutrition Etiology chronic severe malnutrition related to inadequate oral intake w/ increased energy needs d/t lung cancer Signs/Symptoms as evidenced by estimated PO intake meeting <50% of estimated energy needs x 1-2 months; unintentional wt loss of 14.5#/12% x 1-2 months; severe muscle wasting and fat loss evident per physical exam in orbital, clavicle, temporal and acromion areas; BMI 17.8 Status Active Problem Recommendation Dietitian Recommendations/Changes will liberalize diet to regular; 120mL ensure plus high protein 4x/day w/ medpass for additional calories/ protein if consumed. Lab / Micro Data Attestation: I reviewed the patient's lab results. Result Diagrams: 12/06/22 04:44 12/06/22 04:44 Labs: Laboratory Results - last 24 hr 12/05/22 14:40: Diff Path Review Reviewed 12/07/22 02:35: Vancomycin Trough 9.6 12/07/22 08:55: MRSA (PCR) Negative Micro: Microbiology 12/05/22 14:40 Blood Culture (Wb) #2 - Right Hand Blood Culture - Preliminary No growth in 48 hours. 12/05/22 14:40 Blood Culture (Wb) - Anticubital Left Blood Culture - Preliminary No growth in 48 hours. 12/05/22 15:21 Mucosa - Nasopharyngeal Respiratory Panel (PCR) - Final 12/05/22 15:21 Nasal Secretion SARS-CoV-2 Antigen (Rapid) - Final Physical Exam Const alert Constitutional Narrative: On nasal cannula during my evaluation General Appearance: cooperative, in distress Positive for mild and frail HEENT normocephalic, head/scalp atraumatic and moist oral mucous membranes Eyes PERRL, EOMs intact bilaterally and conjunctivae normal Neck supple General: trachea midline Chest Chest Narrative: Increased AP diameter. Resp normal respiratory effort Auscultation: diminished lung sounds; Negative for rales, rhonchi or wheezes Cardio regular rate, regular rhythm, S1 normal heart sound, S2 normal heart sound, no murmurs, no rub and no gallops GI normal to inspection, nondistended, normoactive bowel sounds Extremity no clubbing, cyanosis or edema Skin no rashes or lesions noted Neuro CN's II-XII intact bilaterally, moves all extremities and no focal motor deficits Psych Activity / Motor Behavior: restless Mood & Affect: anxious Charges/Coding Visit Charges Inpatient E&M: 10000 Subs Hosp L2
--- NOTE | 2022-12-07 11:54 | PCM.PN.HOSP ---
Subjective Subjective Seems to be doing a little bit better today however he is still upright and tripoding Objective Data Objective Data Vital Signs: Vital Signs Temp Pulse Resp BP Pulse Ox O2 Del Method O2 Flow Rate 97.8 F 79 18 117/84 H 100 Nasal Cannula 3 12/07/22 08:41 12/07/22 10:40 12/07/22 10:40 12/07/22 08:41 12/07/22 10:40 12/07/22 10:40 12/07/22 10:40 FiO2 25 12/07/22 04:50 Oxygen Flow Rate (L/min) 3 Oxygen Delivery Method Nasal Cannula Weight: 110 lb 7.225 oz Body Mass Index (BMI) 17.8 Intake & Output: Intake and Output for Last 24 Hours 12/06/22 12/07/22 12/08/22 03:59 03:59 03:59 Intake Total 1535 / 1535 1510 / 1510 250 / 250 Output Total 50 / 50 550 / 550 200 / 200 Balance 1485 / 1485 960 / 960 50 / 50 Medical Nutrition Assessment Dietitian: Malnutrition Criteria Met Start: 12/06/22 12:48 Freq: Status: Active Protocol: Document 12/06/22 13:03 AG (Rec: 12/06/22 13:03 [id number]) Nutrition Malnutrition Evidence of Malnutrition Exists Yes Malnutrition (severe): Chronic Evidenced By Suboptimal Energy Intake ( Severe),Weight Loss (Severe), Physical Changes (Severe) Clinical Problem Chronic Disease or Condition Related Malnutrition Etiology chronic severe malnutrition related to inadequate oral intake w/ increased energy needs d/t lung cancer Signs/Symptoms as evidenced by estimated PO intake meeting <50% of estimated energy needs x 1-2 months; unintentional wt loss of 14.5#/12% x 1-2 months; severe muscle wasting and fat loss evident per physical exam in orbital, clavicle, temporal and acromion areas; BMI 17.8 Status Active Problem Recommendation Dietitian Recommendations/Changes will liberalize diet to regular; 120mL ensure plus high protein 4x/day w/ medpass for additional calories/ protein if consumed. Lab / Micro Data Result Diagrams: 12/06/22 04:44 12/06/22 04:44 Labs: Laboratory Results - last 24 hr 12/05/22 14:40: Diff Path Review Reviewed 12/07/22 02:35: Vancomycin Trough 9.6 12/07/22 08:55: MRSA (PCR) Negative Micro: Microbiology 12/05/22 14:40 Blood Culture (Wb) #2 - Right Hand Blood Culture - Preliminary No growth in 48 hours. 12/05/22 14:40 Blood Culture (Wb) - Anticubital Left Blood Culture - Preliminary No growth in 48 hours. 12/05/22 15:21 Mucosa - Nasopharyngeal Respiratory Panel (PCR) - Final 12/05/22 15:21 Nasal Secretion SARS-CoV-2 Antigen (Rapid) - Final Physical Exam Narrative General: Alert, Oriented x3, Cooperative, No apparent distress HEENT: Atraumatic, PERRLA, EOMI, Normocephalic Oral: Moist Mucosa Neck: Supple, No JVD Lungs: Diminished, poor air movement, No rhonchi, No wheeze, No rales, tripoding Cardiovascular: Regular rate, Regular Rhythm, Normal S1, Normal S2, No murmurs Abdomen: Soft, Non Tender, Non-Distended, No Hepato-splenomegaly Extremities: No edema, Capillary Refill Less than 3 Seconds Skin: No rashes, No breakdown Musculoskeletal: No Tenderness to Palpation of Joints or Extremities Neurological: Moves all extremities, sensation intact Psych/Mental Status: Anxious Assessment & Plan Assessment/Plan (1) Respiratory failure: (2) Lung cancer: (3) Hypercarbia: PLAN: Plan 1. Acute hypoxic and hypercapnic respiratory failure secondary to acute COPD exacerbation/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 He has a stage IV COPD ? COVID test is negative respiratory panel is negative ? Continue with steroids and antibiotics, sputum cultures pending ? Appreciate pulmonology assistance ?BiPAP as needed ? Oncology is aware he is in the hospital and will see him soon as he is discharged 2. Paroxysmal A-fib/HTN/HLD ? Metoprolol is increased to 100 mg p.o. twice daily, will continue to monitor ? Blood pressures are stable ? Continue with Eliquis 3. Iron deficiency anemia ? Continue with his iron replacement DVT: Eliquis Charges/Coding Visit Charges Inpatient E&M: 24625 Subs Hosp L2
[2022-12-07] MEDS: Ensure Plus High Protein 120 ML LIQUID PO ×3 (14:50→22:09)
[2022-12-07] MEDS: Tamsulosin HCl 0.4 MG Capsule PO (20:48)
[2022-12-08] VITALS (15 sets, daily range): BP systolic 98–130; BP diastolic 59–96; PULSE 62–92; RESP 10–24; TEMP 36.5–36.7; O2SAT 77–100
[2022-12-08] MEDS: Ipratropium/Albuterol Sulfate 3 ML AMPUL.NEB INHALATION ×3 (04:38→20:03)
[2022-12-08 05:28] LABS: Absolute Neutrophil Count 7.8 X10^3/uL (2.0-7.7); Hematocrit 29.2 % (40-54); Hemoglobin 8.9 g/dL (13.0-16.5); Lymphocyte % 5.5 % (19-41); Mean Corp Hgb Conc 30.5 g/dL (32-36); Mean Corpuscular Hgb 30.9 pg (27.0-32.0); Mean Corpuscular Volume 101.4 fL (80-94); Mean Platelet Vol. 9.6 fl (6.2-12.0); Monocyte# 0.73 X10^3/uL; Monocyte% 8.1 % (0-10); NRBC Flagged by Analyzer 0 % (0-5); Neutrophil % 86.1 % (47-70); POSITIVE DIFFERENTIAL YES; Platelet Count 247 K/mm3 (150-450); RBC Distribution Width CV 13.6 % (11.6-14.6); Red Blood Count 2.88 M/mm3 (4.6-6.2); White Blood Count 9.1 K/mm3 (4.4-11.0)
[2022-12-08 05:30] LABS: Differential Indicated SCAN CRITERIA MET
[2022-12-08] MEDS: 0.9% Saline Lock 10 ML Syringe IV (05:40)
[2022-12-08 05:56] LABS: Anion Gap 4 (5-15); BUN 26 mg/dL (7-18); BUN/Creat Ratio 36.7 RATIO (10-20); Calcium,Total 9.6 mg/dL (8.5-10.1); Chloride 106 mmol/L (98-107); Creatinine, Serum 0.71 mg/dL (0.70-1.30); EST Glomerular Filtration Rate 118 mL/min (>60); Est Glom Filt Rate - Afr Amer 142 mL/min (>60); Glucose 120 mg/dL (74-106); Potassium 4.4 mmol/L (3.5-5.1); Sodium Level 141 mmol/L (136-145)
[2022-12-08 07:07] LABS: Anisocytosis 1+; Differential Comment SCANNED; Macrocytosis 1+
[2022-12-08] MEDS: Metoprolol Tartrate 100 MG Tablet PO ×2 (09:59→21:40)
[2022-12-08] MEDS: Ferrous Sulfate 325 MG Tablet PO (09:59)
[2022-12-08] MEDS: APIXABAN 5 MG TABLET PO ×2 (09:59→21:39)
[2022-12-08] MEDS: guaiFENesin 1,200 MG Tablet 1200 MG PO ×2 (09:59→21:40)
[2022-12-08] MEDS: ROFLUMILAST 250 MCG TABLET 500 MCG PO (10:00)
[2022-12-08] MEDS: Ensure Plus High Protein 120 ML LIQUID PO ×3 (10:04→21:45)
--- NOTE | 2022-12-08 10:22 | PCM.PN.HOSP ---
Subjective Subjective Still not feeling great, still very short of breath and he states that he gets winded with the least amount of activity Objective Data Objective Data Vital Signs: Vital Signs Temp Pulse Resp BP Pulse Ox O2 Del Method O2 Flow Rate 97.7 F L 71 19 H 130/88 H 100 Nasal Cannula 3 12/08/22 09:56 12/08/22 09:59 12/08/22 09:56 12/08/22 09:56 12/08/22 09:56 12/08/22 10:00 12/08/22 10:00 FiO2 25 12/08/22 07:00 Oxygen Flow Rate (L/min) 3 Oxygen Delivery Method Nasal Cannula Weight: 110 lb 7.225 oz Body Mass Index (BMI) 17.8 Intake & Output: Intake and Output for Last 24 Hours 12/07/22 12/08/22 12/09/22 03:59 03:59 03:59 Intake Total 1510 / 1510 1270 / 1270 170 / 170 Output Total 550 / 550 400 / 400 150 / 150 Balance 960 / 960 870 / 870 Medical Nutrition Assessment Dietitian: Malnutrition Criteria Met Start: 12/06/22 12:48 Freq: Status: Active Protocol: Document 12/06/22 13:03 (Rec: 12/06/22 13:03 [id number]) Nutrition Malnutrition Evidence of Malnutrition Exists Yes Malnutrition (severe): Chronic Evidenced By Suboptimal Energy Intake ( Severe),Weight Loss (Severe), Physical Changes (Severe) Clinical Problem Chronic Disease or Condition Related Malnutrition Etiology chronic severe malnutrition related to inadequate oral intake w/ increased energy needs d/t lung cancer Signs/Symptoms as evidenced by estimated PO intake meeting <50% of estimated energy needs x 1-2 months; unintentional wt loss of 14.5#/12% x 1-2 months; severe muscle wasting and fat loss evident per physical exam in orbital, clavicle, temporal and acromion areas; BMI 17.8 Status Active Problem Recommendation Dietitian Recommendations/Changes will liberalize diet to regular; 120mL ensure plus high protein 4x/day w/ medpass for additional calories/ protein if consumed. Lab / Micro Data Result Diagrams: 12/08/22 05:17 12/08/22 05:17 Labs: Laboratory Results - last 24 hr 12/07/22 08:55: MRSA (PCR) Negative 12/08/22 05:17: WBC 9.1, RBC 2.88 L, Hgb 8.9 L, Hct 29.2 L, MCV 101.4 H, MCH 30.9, MCHC 30.5 L, RDW Std Deviation 51.0 H, RDW Coeff of Fe 13.6, Plt Count 247, MPV 9.6, Immature Gran % (Auto) 0.300, Neut % (Auto) 86.1 H, Lymph % (Auto) 5.5 L, [place] % (Auto) 8.1, Eos % (Auto) 0.0, Baso % (Auto) 0.0, Absolute Neuts (auto) 7.8 H, Absolute Lymphs (auto) 0.50 L, Nucleated RBC % 0, Differential Comment SCANNED, Anisocytosis 1+, Macrocytosis 1+ 12/08/22 05:17: Sodium 141, Potassium 4.4, Chloride 106, Carbon Dioxide 31.0, Anion Gap 4 L, BUN 26 H, Creatinine 0.71, Estim Creat Clear Calc 50.10, Est GFR (MDRD) Af Amer 142, Est GFR (MDRD) Non-Af 118, BUN/Creatinine Ratio 36.7 H, Glucose 120 H, Calcium 9.6 Micro: Microbiology 12/07/22 08:15 Sputum, Expectorated/Coughed Gram Stain - Final 12/07/22 08:15 Sputum, Expectorated/Coughed Respiratory Culture - Preliminary Appears to be normal respiratory bibi. Further studies to follow. 12/05/22 14:40 Blood Culture (Wb) #2 - Right Hand Blood Culture - Preliminary No growth in 48 hours. 12/05/22 14:40 Blood Culture (Wb) - Anticubital Left Blood Culture - Preliminary No growth in 48 hours. 12/05/22 15:21 Mucosa - Nasopharyngeal Respiratory Panel (PCR) - Final 12/05/22 15:21 Nasal Secretion SARS-CoV-2 Antigen (Rapid) - Final Physical Exam Narrative General: Alert, Oriented x3, Cooperative, No apparent distress HEENT: Atraumatic, PERRLA, EOMI, Normocephalic Oral: Moist Mucosa Neck: Supple, No JVD Lungs: Diminished, poor air movement, No rhonchi, No wheeze, No rales, tripoding Cardiovascular: Regular rate, Regular Rhythm, Normal S1, Normal S2, No murmurs Abdomen: Soft, Non Tender, Non-Distended, No Hepato-splenomegaly Extremities: No edema, Capillary Refill Less than 3 Seconds Skin: No rashes, No breakdown Musculoskeletal: No Tenderness to Palpation of Joints or Extremities Neurological: Moves all extremities, sensation intact Psych/Mental Status: Anxious Assessment & Plan Assessment/Plan (1) Respiratory failure: (2) Lung cancer: (3) Hypercarbia: PLAN: Plan 1. Acute hypoxic and hypercapnic respiratory failure secondary to acute COPD exacerbation/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 He has a stage IV COPD ? COVID test is negative respiratory panel is negative ? Continue with steroids, sputum culture is negative can likely discontinue antibiotics ? Appreciate pulmonology assistance ?BiPAP as needed ? Oncology is aware he is in the hospital and will see him soon as he is discharged 2. Paroxysmal A-fib/HTN/HLD ? Metoprolol is increased to 100 mg p.o. twice daily, will continue to monitor ? Blood pressures are stable ? Continue with Eliquis 3. Iron deficiency anemia ? Continue with his iron replacement DVT: Eliquis Charges/Coding Visit Charges Inpatient E&M: 93400 Subs Hosp L2
--- NOTE | 2022-12-08 10:49 | PN.CC_ITS ---
Assessment & Plan Assessment/Plan (1) Mass of left lung: PLAN: Plan RECOMMENDATIONS: 1. Supplemental oxygen as tolerated to maintain saturations at or above 90%. 2. Could attempt diuretics 3. Continue scheduled bronchodilators and IV steroids. 4. Encourage incentive spirometer use and mobilize patient as tolerated. 5. Consider oncology consult for prognostication IMPRESSIONS: 1. End-stage COPD with exacerbation Unclear etiology of repeat hospitalization. Patient is obviously short of breath, but there are no infiltrates on chest x-ray. Patient does have a malignancy with tachycardia and tachypnea, so PE would be a consideration, but patient has been on Eliquis therapy making this less likely. Patient is on steroids and bronchodilators. Patient with advanced COPD with an FEV1 of 21% in 2017. The likelihood of liberation from the ventilator if intubated is very low. Unclear if diuretics may be somewhat helpful for pulmonary artery pressures, but x-ray was not significant for pulmonary edema. Some concern that this is an inability to tolerate the increased metabolic demand of malignancy more than an acute deterioration. 2. Squamous cell lung carcinoma Patient recently discharged and told of his squamous cell lung carcinoma diagnosis. Recent PET scan is suggesting possible metastasis. Patient has not been seen by oncology at this point and is concerned about not having his visit. Okay to consult oncology from my perspective. Patient is currently a full code despite new diagnosis of lung cancer with an FEV1 of 21% in 2017. Treatment options will be severely limited given patient's functional status. 3. Chronic hypoxemic respiratory failure Continue 3 L/min of supplemental oxygen, per home regimen. Given CO2 retention on presentation, would recommend keeping saturations between 90 and 94%. Patient is on triple therapy at home. Subjective Subjective Patient did well overnight. Patient continues to report significant dyspnea with minimal exertion. Patient has not had any change in sputum or oxygen requirements. Patient does report early satiety secondary to breathing. Objective Data Objective Data Vital Signs: Vital Signs Temp Pulse Resp BP Pulse Ox O2 Del Method O2 Flow Rate 36.5 C L 71 19 H 130/88 H 100 Nasal Cannula 3 12/08/22 09:56 12/08/22 09:59 12/08/22 09:56 12/08/22 09:56 12/08/22 09:56 12/08/22 10:00 12/08/22 10:00 FiO2 25 12/08/22 07:00 Oxygen Flow Rate (L/min) 3 Oxygen Delivery Method Nasal Cannula Weight: 50.1 kg Body Mass Index (BMI) 17.8 Intake & Output: Intake and Output for Last 24 Hours 12/06/22 12/07/22 12/08/22 23:59 23:59 23:59 Intake Total 1630 / 1630 830 / 1270 660 / 660 Output Total 450 / 600 350 / 550 350 / 350 Balance 1180 / 1030 480 / 720 310 / 310 Medical Nutrition Assessment Dietitian: Malnutrition Criteria Met Start: 12/06/22 12:48 Freq: Status: Active Protocol: Document 12/06/22 13:03 (Rec: 12/06/22 13:03 [id number]) Nutrition Malnutrition Evidence of Malnutrition Exists Yes Malnutrition (severe): Chronic Evidenced By Suboptimal Energy Intake ( Severe),Weight Loss (Severe), Physical Changes (Severe) Clinical Problem Chronic Disease or Condition Related Malnutrition Etiology chronic severe malnutrition related to inadequate oral intake w/ increased energy needs d/t lung cancer Signs/Symptoms as evidenced by estimated PO intake meeting <50% of estimated energy needs x 1-2 months; unintentional wt loss of 14.5#/12% x 1-2 months; severe muscle wasting and fat loss evident per physical exam in orbital, clavicle, temporal and acromion areas; BMI 17.8 Status Active Problem Recommendation Dietitian Recommendations/Changes will liberalize diet to regular; 120mL ensure plus high protein 4x/day w/ medpass for additional calories/ protein if consumed. Lab / Micro Data Attestation: I reviewed the patient's lab results. Result Diagrams: 12/08/22 05:17 12/08/22 05:17 Labs: Laboratory Results - last 24 hr 12/07/22 08:55: MRSA (PCR) Negative 12/08/22 05:17: WBC 9.1, RBC 2.88 L, Hgb 8.9 L, Hct 29.2 L, MCV 101.4 H, MCH 30.9, MCHC 30.5 L, RDW Std Deviation 51.0 H, RDW Coeff of Fe 13.6, Plt Count 247, MPV 9.6, Immature Gran % (Auto) 0.300, Neut % (Auto) 86.1 H, Lymph % (Auto) 5.5 L, [place] % (Auto) 8.1, Eos % (Auto) 0.0, Baso % (Auto) 0.0, Absolute Neuts (auto) 7.8 H, Absolute Lymphs (auto) 0.50 L, Nucleated RBC % 0, Differential Comment SCANNED, Anisocytosis 1+, Macrocytosis 1+ 12/08/22 05:17: Sodium 141, Potassium 4.4, Chloride 106, Carbon Dioxide 31.0, Anion Gap 4 L, BUN 26 H, Creatinine 0.71, Estim Creat Clear Calc 50.10, Est GFR (MDRD) Af Amer 142, Est GFR (MDRD) Non-Af 118, BUN/Creatinine Ratio 36.7 H, Glucose 120 H, Calcium 9.6 Micro: Microbiology 12/07/22 08:15 Sputum, Expectorated/Coughed Gram Stain - Final 12/07/22 08:15 Sputum, Expectorated/Coughed Respiratory Culture - Preliminary Appears to be normal respiratory bibi. Further studies to follow. 12/05/22 14:40 Blood Culture (Wb) #2 - Right Hand Blood Culture - Preliminary No growth in 48 hours. 12/05/22 14:40 Blood Culture (Wb) - Anticubital Left Blood Culture - Preliminary No growth in 48 hours. 12/05/22 15:21 Mucosa - Nasopharyngeal Respiratory Panel (PCR) - Final 12/05/22 15:21 Nasal Secretion SARS-CoV-2 Antigen (Rapid) - Final Physical Exam Const alert Constitutional Narrative: On nasal cannula during my evaluation General Appearance: cooperative, in distress Positive for mild (Conversational) and frail HEENT normocephalic, head/scalp atraumatic and moist oral mucous membranes Eyes PERRL, EOMs intact bilaterally and conjunctivae normal Neck supple General: trachea midline Chest Chest Narrative: Increased AP diameter. Resp Effort and Inspection: tachypneic and prolonged expiratory phase Auscultation: diminished lung sounds; Negative for rales, rhonchi or wheezes Cardio regular rate, regular rhythm, S1 normal heart sound, S2 normal heart sound, no murmurs, no rub and no gallops GI normal to inspection, nondistended, normoactive bowel sounds Extremity no clubbing, cyanosis or edema Skin no rashes or lesions noted Neuro CN's II-XII intact bilaterally, moves all extremities and no focal motor def icits Psych Activity / Motor Behavior: restless Mood & Affect: anxious Charges/Coding Visit Charges Inpatient E&M: 69994 Subs Hosp L2
[2022-12-08 15:26] LABS: Magnesium 2.4 mg/dL (1.6-2.6); Phosphorus 2.9 mg/dL (2.5-4.9)
[2022-12-08] MEDS: Tamsulosin HCl 0.4 MG Capsule PO (21:40)
--- NOTE | 2022-12-08 23:45 | CPS ---
Pt was offered AVAPS for night time, pt said not right now
[2022-12-09] VITALS (13 sets, daily range): BP systolic 105–129; BP diastolic 69–80; PULSE 66–88; RESP 16–22; TEMP 36.3–37.1; O2SAT 96–100
[2022-12-09] MEDS: Ipratropium/Albuterol Sulfate 3 ML AMPUL.NEB INHALATION ×3 (01:15→15:32)
[2022-12-09 05:51] LABS: Absolute Lymphocyte Count 0.35 X10^3/uL (0.83-4.51); Absolute Neutrophil Count 6.2 X10^3/uL (2.0-7.7); Hematocrit 27.4 % (40-54); Hemoglobin 8.5 g/dL (13.0-16.5); Lymphocyte # 0.35 X10^3/ul (0.83-4.51); Lymphocyte % 4.9 % (19-41); Mean Corpuscular Hgb 31.7 pg (27.0-32.0); Mean Corpuscular Volume 102.2 fL (80-94); Monocyte# 0.52 X10^3/uL; Monocyte% 7.3 % (0-10); NRBC Flagged by Analyzer 0 % (0-5); Neutrophil % 87.2 % (47-70); POSITIVE DIFFERENTIAL YES; Platelet Count 241 K/mm3 (150-450); RBC Distribution Width CV 13.7 % (11.6-14.6); RBC Distribution Width SD 51.5 fl (35.1-43.9); Red Blood Count 2.68 M/mm3 (4.6-6.2); White Blood Count 7.1 K/mm3 (4.4-11.0)
[2022-12-09 05:54] LABS: Differential Indicated SCAN CRITERIA MET
[2022-12-09 06:10] LABS: Macrocytosis 2+
[2022-12-09 06:27] LABS: Anion Gap 4 (5-15); BUN 26 mg/dL (7-18); BUN/Creat Ratio 46.9 RATIO (10-20); Calcium,Total 9.3 mg/dL (8.5-10.1); Chloride 108 mmol/L (98-107); Creatinine, Serum 0.55 mg/dL (0.70-1.30); EST Glomerular Filtration Rate 156 mL/min (>60); Est Glom Filt Rate - Afr Amer 189 mL/min (>60); Glucose 120 mg/dL (74-106); Potassium 4.1 mmol/L (3.5-5.1); Sodium Level 143 mmol/L (136-145)
--- NOTE | 2022-12-09 07:50 | CPS ---
PT ASKED TO GET TREATMENT LATER, WANTED TO CONTINUE SLEEPING.
[2022-12-09] MEDS: Metoprolol Tartrate 100 MG Tablet PO ×2 (08:21→21:07)
[2022-12-09] MEDS: guaiFENesin 1,200 MG Tablet 1200 MG PO ×2 (08:21→21:06)
[2022-12-09] MEDS: Azithromycin 250 MG Tablet PO (08:21)
[2022-12-09] MEDS: Ferrous Sulfate 325 MG Tablet PO (08:21)
[2022-12-09] MEDS: APIXABAN 5 MG TABLET PO ×2 (08:21→21:07)
[2022-12-09] MEDS: ROFLUMILAST 250 MCG TABLET 500 MCG PO (08:22)
--- NOTE | 2022-12-09 09:24 | PCM.PN.HOSP ---
Reason for Visit Reason for Visit: Diagnoses Malignant neoplasm of unspecified part of unspecified bronchus or lung (12/05/22) Respiratory failure, unspecified, unspecified whether with hypoxia or hypercapnia (12/05/22) Other abnormalities of breathing (12/05/22) Other nonspecific abnormal finding of lung field (12/05/22) Subjective Subjective Breathing better. Objective Data Objective Data Vital Signs: Vital Signs Temp Pulse Resp BP Pulse Ox O2 Del Method O2 Flow Rate 37.0 C 88 18 127/71 H 100 Nasal Cannula 3 12/09/22 08:19 12/09/22 08:21 12/09/22 08:19 12/09/22 08:21 12/09/22 08:19 12/09/22 08:19 12/09/22 08:19 FiO2 25 12/08/22 07:00 Oxygen Flow Rate (L/min) 3 Oxygen Delivery Method Nasal Cannula Weight: 50.1 kg Body Mass Index (BMI) 17.8 Intake & Output: Intake and Output for Last 24 Hours 12/07/22 12/08/22 12/09/22 23:59 23:59 23:59 Intake Total 830 / 1270 1710 / 1710 150 / 150 Output Total 350 / 550 550 / 550 300 / 300 Balance 480 / 720 1160 / 1160 -150 / -150 Medical Nutrition Assessment Dietitian: Malnutrition Criteria Met Start: 12/06/22 12:48 Freq: Status: Active Protocol: Document 12/06/22 13:03 (Rec: 12/06/22 13:03 [id number]) Nutrition Malnutrition Evidence of Malnutrition Exists Yes Malnutrition (severe): Chronic Evidenced By Suboptimal Energy Intake ( Severe),Weight Loss (Severe), Physical Changes (Severe) Clinical Problem Chronic Disease or Condition Related Malnutrition Etiology chronic severe malnutrition related to inadequate oral intake w/ increased energy needs d/t lung cancer Signs/Symptoms as evidenced by estimated PO intake meeting <50% of estimated energy needs x 1-2 months; unintentional wt loss of 14.5#/12% x 1-2 months; severe muscle wasting and fat loss evident per physical exam in orbital, clavicle, temporal and acromion areas; BMI 17.8 Status Active Problem Recommendation Dietitian Recommendations/Changes will liberalize diet to regular; 120mL ensure plus high protein 4x/day w/ medpass for additional calories/ protein if consumed. Lab / Micro Data Result Diagrams: 12/09/22 05:16 12/09/22 05:16 Labs: Laboratory Results - last 24 hr 12/08/22 05:17: Phosphorus 2.9, Magnesium 2.4 12/09/22 05:16: WBC 7.1, RBC 2.68 L, Hgb 8.5 L, Hct 27.4 L, MCV 102.2 H, MCH 31.7, MCHC 31.0 L, RDW Std Deviation 51.5 H, RDW Coeff of Fe 13.7, Plt Count 241, MPV 10.0, Immature Gran % (Auto) 0.600, Neut % (Auto) 87.2 H, Lymph % (Auto) 4.9 L, Kimble % (Auto) 7.3, Eos % (Auto) 0.0, Baso % (Auto) 0.0, Absolute Neuts (auto) 6.2, Absolute Lymphs (auto) 0.35 L, Nucleated RBC % 0, Macrocytosis 2+ 12/09/22 05:16: Sodium 143, Potassium 4.1, Chloride 108 H, Carbon Dioxide 31.0, Anion Gap 4 L, BUN 26 H, Creatinine 0.55 L, Estim Creat Clear Calc 50.10, Est GFR (MDRD) Af Amer 189, Est GFR (MDRD) Non-Af 156, BUN/Creatinine Ratio 46.9 H, Glucose 120 H, Calcium 9.3 Micro: Microbiology 12/07/22 08:15 Sputum, Expectorated/Coughed Gram Stain - Final 12/07/22 08:15 Sputum, Expectorated/Coughed Respiratory Culture - Preliminary Presumptive C albicans 12/05/22 14:40 Blood Culture (Wb) #2 - Right Hand Blood Culture - Preliminary No growth in 48 hours. 12/05/22 14:40 Blood Culture (Wb) - Anticubital Left Blood Culture - Preliminary No growth in 48 hours. 12/05/22 15:21 Mucosa - Nasopharyngeal Respiratory Panel (PCR) - Final 12/05/22 15:21 Nasal Secretion SARS-CoV-2 Antigen (Rapid) - Final Physical Exam Const Constitutional Narrative: Up in chair. No respiratory distress. Resp normal respiratory effort, no retractions, no use of accessory muscles and clear to auscultation bilaterally Resp Narrative: Bibasilar crackles Cardio regular rate, regular rhythm, S1 normal heart sound and S2 normal heart sound GI normal to inspection, nondistended, normoactive bowel sounds and soft to palpation Extremity normal to inspection Assessment & Plan Assessment/Plan (1) Respiratory failure: PLAN: Acute hypoxic and hypercapnic respiratory failure secondary to acute COPD exacerbation/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 He has a stage IV COPD ? COVID test is negative respiratory panel is negative ? Continue with steroids, sputum culture is negative can likely discontinue antibiotics ? Appreciate pulmonology assistance ?BiPAP as needed ? Oncology is aware he is in the hospital and will see him soon as he is discharged (2) Lung cancer: PLAN: Squamous cell PET scan: in rectum-rectal vault and left anterior iliac wing DW Dr. Massey. Recommends iliac biopsy. Notified by radiology that the lesions are not amenable to CT-guided biopsy. (3) Paroxysmal A-fib: PLAN: ? Metoprolol is increased to 100 mg p.o. twice daily, will continue to monitor ? Blood pressures are stable ? Continue with Eliquis PLAN: Plan Chronic conditions: Iron deficiency anemia: Continue with his iron replacement DVT prophylaxis: Continue apixaban Charges/Coding Visit Charges Inpatient E&M: 70380 Subs Hosp L2
--- NOTE | 2022-12-09 12:12 | PCM.PN.INT ---
Assessment & Plan Assessment/Plan (1) Mass of left lung: PLAN: Plan RECOMMENDATIONS: 1. Continue supplemental oxygen per baseline regimen. 2. Continue antibiotics to complete 7-day treatment course. 3. Okay to transition to prednisone, with tentative plans for a taper at discharge. 4. Continue scheduled bronchodilators. 5. Outpatient pulmonary follow-up in 2 weeks. 6. We will sign off from a pulmonary perspective. Please call with any additional questions. IMPRESSIONS: 1. End-stage COPD with exacerbation Most likely secondary to recent growth of Pseudomonas, coupled with underlying anxiety. The patient is at his baseline from a pulmonary perspective on 3 L/min. Recommend continuation of antimicrobials to complete 7-day treatment course. The patient should be continued on scheduled bronchodilators. IV steroids can be transition to prednisone, with tentative plans for a taper at discharge. He should follow-up in the pulmonary medicine clinic 2 weeks after discharge from the hospital. 2. Squamous cell lung carcinoma The patient was recently diagnosed with primary lung CA with probable metastasis. There are tentative plans for the patient to undergo a CT-guided biopsy of one of his bony metastatic lesions. Recommend consultation be placed to oncology to help facilitate outpatient follow-up. 3. Chronic hypoxemic respiratory failure Continue 3 L/min of supplemental oxygen, per home regimen. The patient should continue his baseline triple therapy inhaler regimen after discharge. This note was generated with [employer] dictation software. It may contain incorrect words, spelling, and punctuation that were not noted in checking the note before signing. Subjective Subjective The patient was seen and examined at the bedside this morning. Events from the last 24 hours have been reviewed. The patient is currently afebrile, hemodynamically stable and maintaining appropriate oxygen saturations on 3 L/min via nasal cannula, which is his baseline requirement. The patient is currently being scheduled for a CT-guided biopsy of his anterior iliac wing which was PET positive on recent imaging. Objective Data Objective Data The patient's most recent lab work, culture data and imaging studies have all been personally reviewed. Last sputum culture dated November 25 was positive for Pseudomonas, which was pansensitive. Vital Signs: Vital Signs Temp Pulse Resp BP Pulse Ox O2 Del Method O2 Flow Rate 98.6 F 82 16 127/71 H 100 Nasal Cannula 3 12/09/22 08:19 12/09/22 11:09 12/09/22 11:09 12/09/22 08:21 12/09/22 08:19 12/09/22 08:19 12/09/22 08:19 FiO2 25 12/08/22 07:00 Oxygen Flow Rate (L/min) 3 Oxygen Delivery Method Nasal Cannula Weight: 110 lb 7.225 oz Body Mass Index (BMI) 17.8 Intake & Output: Intake and Output for Last 24 Hours 12/07/22 12/08/22 12/09/22 23:59 23:59 23:59 Intake Total 830 / 1270 1710 / 1710 200 / 200 Output Total 350 / 550 550 / 550 300 / 300 Balance 480 / 720 1160 / 1160 -100 / -100 Medical Nutrition Assessment Dietitian: Malnutrition Criteria Met Start: 12/06/22 12:48 Freq: Status: Active Protocol: Document 12/06/22 13:03 (Rec: 12/06/22 13:03 [id number]) Nutrition Malnutrition Evidence of Malnutrition Exists Yes Malnutrition (severe): Chronic Evidenced By Suboptimal Energy Intake ( Severe),Weight Loss (Severe), Physical Changes (Severe) Clinical Problem Chronic Disease or Condition Related Malnutrition Etiology chronic severe malnutrition related to inadequate oral intake w/ increased energy needs d/t lung cancer Signs/Symptoms as evidenced by estimated PO intake meeting <50% of estimated energy needs x 1-2 months; unintentional wt loss of 14.5#/12% x 1-2 months; severe muscle wasting and fat loss evident per physical exam in orbital, clavicle, temporal and acromion areas; BMI 17.8 Status Active Problem Recommendation Dietitian Recommendations/Changes will liberalize diet to regular; 120mL ensure plus high protein 4x/day w/ medpass for additional calories/ protein if consumed. Lab / Micro Data Attestation: I reviewed the patient's lab results. Result Diagrams: 12/09/22 05:16 12/09/22 05:16 Labs: Laboratory Results - last 24 hr 12/08/22 05:17: Phosphorus 2.9, Magnesium 2.4 12/09/22 05:16: WBC 7.1, RBC 2.68 L, Hgb 8.5 L, Hct 27.4 L, MCV 102.2 H, MCH 31.7, MCHC 31.0 L, RDW Std Deviation 51.5 H, RDW Coeff of Fe 13.7, Plt Count 241, MPV 10.0, Immature Gran % (Auto) 0.600, Neut % (Auto) 87.2 H, Lymph % (Auto) 4.9 L, Kings % (Auto) 7.3, Eos % (Auto) 0.0, Baso % (Auto) 0.0, Absolute Neuts (auto) 6.2, Absolute Lymphs (auto) 0.35 L, Nucleated RBC % 0, Macrocytosis 2+ 12/09/22 05:16: Sodium 143, Potassium 4.1, Chloride 108 H, Carbon Dioxide 31.0, Anion Gap 4 L, BUN 26 H, Creatinine 0.55 L, Estim Creat Clear Calc 50.10, Est GFR (MDRD) Af Amer 189, Est GFR (MDRD) Non-Af 156, BUN/Creatinine Ratio 46.9 H, Glucose 120 H, Calcium 9.3 Micro: Microbiology 12/07/22 08:15 Sputum, Expectorated/Coughed Gram Stain - Final 12/07/22 08:15 Sputum, Expectorated/Coughed Respiratory Culture - Final Presumptive C albicans 12/05/22 14:40 Blood Culture (Wb) #2 - Right Hand Blood Culture - Preliminary No growth in 48 hours. 12/05/22 14:40 Blood Culture (Wb) - Anticubital Left Blood Culture - Preliminary No growth in 48 hours. 12/05/22 15:21 Mucosa - Nasopharyngeal Respiratory Panel (PCR) - Final 12/05/22 15:21 Nasal Secretion SARS-CoV-2 Antigen (Rapid) - Final Physical Exam Const alert and no apparent distress General Appearance: cooperative HEENT normocephalic, head/scalp atraumatic and moist oral mucous membranes Eyes PERRL, EOMs intact bilaterally and conjunctivae normal Neck supple General: trachea midline Chest Chest Narrative: Increased AP diameter Resp normal respiratory effort Effort and Inspection: prolonged expiratory phase Auscultation: wheezes and diminished lung sounds Cardio regular rate and regular rhythm GI normal to inspection, nondistended, normoactive bowel sounds Extremity no clubbing, cyanosis or edema Skin no rashes or lesions noted Neuro oriented x3, CN's II-XII intact bilaterally and moves all extremities Psych Mood & Affect: anxious Charges/Coding Visit Charges Inpatient E&M: 54375 Subs Hosp L2
[2022-12-09] MEDS: 0.9% Saline Lock 10 ML Syringe IV (13:44)
[2022-12-09] MEDS: Ensure Plus High Protein 120 ML LIQUID PO ×3 (13:50→21:03)
--- NOTE | 2022-12-09 15:09 | CHAPLAIN ---
Type of Pastoral Visit _x__ Initial Visit ___ Follow-up Visit ___ On-call Visit ___ General Patient Visit ___ Spiritual Assessment ___ Family Conference ___ Bereavement ___ Rapid Response ___ Code Blue ___ Other (describe below) Pastoral Care Referral From _x__ Patient ___ Family ___ Nurse ___ Physician ___ Vocational Guidance Counselor ___ Microelectronics Engineer ___ Other (describe below) Sacrament/Intervention _x__ Active listening ___ Anointing ___ Bahai ___ Bereavement ___ Communion ___ Anju exploration ___ ___ Life review ___ Prayer ___ Reconciliation ___ Sacrament of Sick ___ Supportive presence ___ Wedding ___ Other (describe below) Pastoral Comments patient was napping but opened eyes when name called; pt states that his daughter left room but will come back later; pt states that he is about the same but that is actually good; pt says he has no concerns and does not need anything at this time;
[2022-12-09] MEDS: Tamsulosin HCl 0.4 MG Capsule PO (21:06)
[2022-12-10] VITALS (10 sets, daily range): BP systolic 125–142; BP diastolic 74–81; PULSE 65–110; RESP 10–32; TEMP 36.5–36.6; O2SAT 91–100
[2022-12-10] MEDS: Ipratropium/Albuterol Sulfate 3 ML AMPUL.NEB INHALATION ×2 (06:58→11:02)
--- NOTE | 2022-12-10 07:56 | PCM.PN.HOSP ---
Reason for Visit Reason for Visit: Diagnoses Malignant neoplasm of unspecified part of unspecified bronchus or lung (12/05/22) Paroxysmal atrial fibrillation (12/05/22) Respiratory failure, unspecified, unspecified whether with hypoxia or hypercapnia (12/05/22) Other abnormalities of breathing (12/05/22) Other nonspecific abnormal finding of lung field (12/05/22) Subjective Subjective Feels ok. Feels better w IV steroids. Objective Data Objective Data Vital Signs: Vital Signs Temp Pulse Resp BP Pulse Ox O2 Del Method O2 Flow Rate 36.5 C L 75 18 125/81 H 100 Nasal Cannula 3 12/10/22 03:05 12/10/22 03:05 12/10/22 03:05 12/10/22 03:05 12/10/22 03:05 12/10/22 03:05 12/10/22 03:05 FiO2 25 12/10/22 00:25 Oxygen Flow Rate (L/min) 3 Oxygen Delivery Method Nasal Cannula Weight: 50.1 kg Body Mass Index (BMI) 17.8 Intake & Output: Intake and Output for Last 24 Hours 12/08/22 12/09/22 12/10/22 23:59 23:59 23:59 Intake Total 1710 / 1710 1290 / 1290 290 / 290 Output Total 550 / 550 750 / 750 350 / 350 Balance 1160 / 1160 540 / 540 -60 / -60 Medical Nutrition Assessment Dietitian: Malnutrition Criteria Met Start: 12/06/22 12:48 Freq: Status: Active Protocol: Document 12/09/22 15:39 RMA (Rec: 12/09/22 15:40 [id number]) Nutrition Malnutrition Evidence of Malnutrition Exists Yes Malnutrition (severe): Chronic Evidenced By Suboptimal Energy Intake ( Severe),Weight Loss (Severe), Physical Changes (Severe) Clinical Problem Chronic Disease or Condition Related Malnutrition Etiology chronic severe malnutrition related to inadequate oral intake w/ increased energy needs d/t lung cancer Signs/Symptoms as evidenced by estimated PO intake meeting <50% of estimated energy needs x 1-2 months; unintentional wt loss of 14.5#/12% x 1-2 months; severe muscle wasting and fat loss evident per physical exam in orbital, clavicle, temporal and acromion areas; BMI 17.8 Status Active Problem Recommendation Dietitian Recommendations/Changes Will continue liberalized regular diet and 120mL ensure plus high protein 4x/day w/ medpass for additional calories/protein if consumed. Will add ensure/fortified pudding with lunch and magic cup with dinner. Adjust ONS as needed to optimize intake and prevent further pro/jennifer depletion. Lab / Micro Data Result Diagrams: 12/09/22 05:16 12/09/22 05:16 Micro: Microbiology 12/07/22 08:15 Sputum, Expectorated/Coughed Gram Stain - Final 12/07/22 08:15 Sputum, Expectorated/Coughed Respiratory Culture - Final Presumptive C albicans 12/05/22 14:40 Blood Culture (Wb) #2 - Right Hand Blood Culture - Preliminary No growth in 48 hours. 12/05/22 14:40 Blood Culture (Wb) - Anticubital Left Blood Culture - Preliminary No growth in 48 hours. 12/05/22 15:21 Mucosa - Nasopharyngeal Respiratory Panel (PCR) - Final 12/05/22 15:21 Nasal Secretion SARS-CoV-2 Antigen (Rapid) - Final Physical Exam Const alert and no apparent distress Resp normal respiratory effort, no retractions, no use of accessory muscles and clear to auscultation bilaterally Cardio regular rate, regular rhythm, S1 normal heart sound and S2 normal heart sound GI normal to inspection, nondistended, normoactive bowel sounds, soft to palpation, non-tender and non-distended Assessment & Plan Assessment/Plan (1) Respiratory failure: PLAN: Acute hypoxic and hypercapnic respiratory failure secondary to acute COPD exacerbation/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 He has a stage IV COPD ? COVID test is negative respiratory panel is negative ? Sputum is positive for C. albicans. No bacterial infection noted. Discontinue antibiotics. ? Appreciate pulmonology assistance prednisone taper. follow up with Dr. Hernández. (2) Lung cancer: PLAN: Squamous cell PET scan: in rectum-rectal vault and left anterior iliac wing DW Dr. Massey. Recommends iliac biopsy. Notified by radiology that the lesions are not amenable to CT-guided biopsy. (3) Paroxysmal A-fib: PLAN: ? Metoprolol is increased to 100 mg p.o. twice daily, will continue to monitor ? Blood pressures are stable ? Continue with Eliquis PLAN: Plan Chronic conditions: Iron deficiency anemia: Continue with his iron replacement DVT prophylaxis: Continue apixaban
[2022-12-10] MEDS: Ferrous Sulfate 325 MG Tablet PO (08:37)
[2022-12-10] MEDS: Metoprolol Tartrate 100 MG Tablet PO (08:37)
[2022-12-10] MEDS: APIXABAN 5 MG TABLET PO (08:39)
[2022-12-10] MEDS: ROFLUMILAST 250 MCG TABLET 500 MCG PO (08:39)
[2022-12-10] MEDS: Ensure Plus High Protein 120 ML LIQUID PO (08:40)
[2022-12-10] MEDS: guaiFENesin 1,200 MG Tablet 1200 MG PO (08:40)
--- NOTE | 2022-12-10 13:52 | PCM.DC ---
Discharge Instructions Diet Discharge Diet: No restrictions Dressing / Incision Call your doctor if you observe: Shortness of breath Follow Up Care Test Results: Test results from this visit will be discussed in further detail at your follow-up appointment, if applicable. Discharge Plan Admission Admit Date/Time: 12/05/22 16:18 Primary Reason for Your Visit: COPD exacerbation Attending Provider: Betito Carmen Primary Care Provider: Caroline Tejeda Consulting Providers: Jorge Tucker ; Luis Hernández ; Jerrell Mann ; Adrien Richey ; Delilah Benoit NP ; Digna Bustamante ; Jose Carlos Pak ; Arun Alexandre Discharge Orders/Prescriptions Prescriptions: New Ensure Plus High Protein 0.08 gram-1.5 kcal/mL Liquid 120 ml PO 4X/DAY Qty: 60 0RF Mucus Relief ER 1,200 mg Tablet Extended Release 12hr 1,200 mg PO BID Qty: 20 0RF Continued tamsulosin [Flomax] 0.4 mg capsule 0.4 mg PO QHS (DME) Handicap Placard Qty: 1 0RF Rx Instructions: expires 11/25/2027 Combivent Respimat 20-100 mcg/actuation mist 1 puff INHALATION Q6H PRN (Reason: Shortness Of Breath) Rx Instructions: INHALE 1 PUFF BY MOUTH EVERY 6 HOURS NEEDED. MAX OF 6 PUFFS IN 24 HOURS azithromycin 250 mg tablet 250 mg PO MOWEFR Rx Instructions: 250 mg PO three times weekly, Fri while patient is taking Levaquin. albuterol sulfate 1.25 mg/3 mL solution for nebulization 1.25 mg inhalation Q4H metoprolol tartrate 50 mg tablet 75 mg PO BID roflumilast [Daliresp] 500 mcg tablet 500 mcg PO DAILY Spiriva Respimat 2.5 mcg/actuation mist 2 puff INHALATION QDAY Eliquis 5 mg tablet 5 mg PO BID fluticasone furoate-vilanterol [Breo Ellipta] 200-25 mcg/dose blister with device 1 inh inhalation DAILY ferrous sulfate [iron] 325 mg (65 mg iron) Tablet 325 mg PO DAILY albuterol sulfate [ProAir HFA] 90 mcg/actuation HFA aerosol inhaler 2 puff inhalation Q6H PRN (Reason: shortness of breath or wheezing) Qty: 18 6RF Changed prednisone 10 mg tablet 10 mg PO DAILY Qty: 60 0RF Rx Instructions: 4 tabs daily for 3 days, then 3 tabs daily for 3 days, then 2 tabs daily for 3 days, then 1 tab daily Discontinued levofloxacin 500 mg tablet 500 mg PO DAILY No Action prednisone 50 mg tablet 50 mg PO DAILY Referrals / Follow Up: Luis Hernández DO [Med Staff - Active Staff] - Within 1 Month Tj Massey MD [Med Staff - Active Staff] - 12/12/22 10:30 am Caroline Tejeda PA [Primary Care Provider] - Within 2 Weeks Milena Yousif [Pharmacist] - Disposition Disposition (needs filled in before D/C Order can be placed): Home, Self Care
--- NOTE | 2022-12-10 14:00 | DS.PCM_ITS ---
Providers Date of Admission: 12/05/22 Primary Care Physician: OFELIA Medina Consultations 12/05/22 17:48 Consult: Dynamometer Mechanic / Pulmonary Medicine Routine Consulting Provider: Pulmonary Medicine vera Victoria Reason for Consult: Resp failure/Lung CA EMERGENT Consult: No Notified: Yes Date Notified: 12/06/22 Time Notified: 06:37 Method of Notification: Text 12/09/22 09:40 Consult: Interventional Radiology Routine Consulting Provider: Arun Alexandre Reason for Consult: CT-guided biopsy EMERGENT Consult: No Notified: Yes Date Notified: 12/09/22 Time Notified: 09:40 Method of Notification: Verbal Reason For Visit: RESP FAILURE Diagnosis Discharge Diagnosis (1) Respiratory failure: Status: Acute Code(s): J96.90 - Respiratory failure, unspecified, unspecified whether with hypoxia or hypercapnia Plan: Acute hypoxic and hypercapnic respiratory failure secondary to acute COPD exacerbation/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 He has a stage IV COPD ? COVID test is negative respiratory panel is negative ? Sputum is positive for C. albicans. No bacterial infection noted. Discontinue antibiotics. ? Appreciate pulmonology assistance prednisone taper. follow up with Dr. Hernández. (2) Lung cancer: Status: Acute Code(s): C34.90 - Malignant neoplasm of unspecified part of unspecified bronchus or lung Plan: Squamous cell PET scan: in rectum-rectal vault and left anterior iliac wing DW Dr. Massey. Recommends iliac biopsy. Notified by radiology that the lesi ons are not amenable to CT-guided biopsy. (3) Paroxysmal A-fib: Status: Acute Code(s): I48.0 - Paroxysmal atrial fibrillation Plan: ? Metoprolol is increased to 100 mg p.o. twice daily, will continue to monitor ? Blood pressures are stable ? Continue with Eliquis Plan Chronic conditions: * Iron deficiency anemia: Continue with his iron replacement DVT prophylaxis: Continue apixaban Medications at Discharge Home Medications tamsulosin 0.4 mg capsule (Flomax) 0.4 mg PO QHS prostate 08/02/20 Handicap Placard #1 ea 11/25/22 albuterol sulfate 90 mcg/actuation aerosol inhaler (ProAir HFA) 2 puff inhalation Q6H PRN shortness of breath or wheezing #18 grams 11/28/22 albuterol sulfate 1.25 mg/3 mL solution for nebulization 1.25 mg inhalation Q4H SHORTNESS OF BREATH 12/05/22 apixaban 5 mg tablet (Eliquis) 5 mg PO BID BLOOD THINNER 12/05/22 azithromycin 250 mg tablet 250 mg PO MOWEFR ANTIBIOTIC 12/05/22 ferrous sulfate 325 mg (65 mg iron) tablet (iron) 325 mg PO DAILY SUPPLEMENT 12/05/22 fluticasone furoate 200 mcg-vilanterol 25 mcg/dose inhalation powder (Breo Ellipta) 1 inh inhalation DAILY COPD 12/05/22 ipratropium 20 mcg-albuterol 100 mcg/actuation mist for inhalation (Combivent Respimat) 1 puff inhalation Q6H PRN Shortness Of Breath 12/05/22 prednisone 50 mg tablet 50 mg PO DAILY STEROID 12/05/22 roflumilast 500 mcg tablet (Daliresp) 500 mcg PO DAILY COPD 12/05/22 tiotropium bromide 2.5 mcg/actuation mist for inhalation (Spiriva Respimat) 2 puff inhalation QDAY COPD 12/05/22 food supplemt, lactose-reduced 0.08 gram-1.5 kcal/mL oral liquid (Ensure Plus High Protein) 120 ml PO 4X/DAY #60 BOTTLES 12/10/22 guaifenesin 1,200 mg tablet, extended release 12 hr (Mucus Relief ER) 1,200 mg PO BID #20 tabs 12/10/22 metoprolol tartrate 100 mg tablet 100 mg PO BID #60 tabs 12/10/22 prednisone 10 mg tablet 10 mg PO DAILY STEROID #60 tabs 12/10/22 Hospital Course Operations None Procedures None Summary of Care Provided Minutes Spent on Discharge: 40 Medical Records Data Medical Nutrition Assessment Dietitian: Malnutrition Criteria Met Start: 12/06/22 12:48 Freq: Status: Active Protocol: Document 12/09/22 15:39 RMA (Rec: 12/09/22 15:40 RMA [id number]) Nutrition Malnutrition Evidence of Malnutrition Exists Yes Malnutrition (severe): Chronic Evidenced By Suboptimal Energy Intake ( Severe),Weight Loss (Severe), Physical Changes (Severe) Clinical Problem Chronic Disease or Condition Related Malnutrition Etiology chronic severe malnutrition related to inadequate oral intake w/ increased energy needs d/t lung cancer Signs/Symptoms as evidenced by estimated PO intake meeting <50% of estimated energy needs x 1-2 months; unintentional wt loss of 14.5#/12% x 1-2 months; severe muscle wasting and fat loss evident per physical exam in orbital, clavicle, temporal and acromion areas; BMI 17.8 Status Active Problem Recommendation Dietitian Recommendations/Changes Will continue liberalized regular diet and 120mL ensure plus high protein 4x/day w/ medpass for additional calories/protein if consumed. Will add ensure/fortified pudding with lunch and magic cup with dinner. Adjust ONS as needed to optimize intake and prevent further pro/jennifer depletion. Weight / BMI Weight Weight: 50.1 kg Body Mass Index (BMI) 17.8 ABG / Lab / Microbiology Data Result Diagrams: 12/09/22 05:16 12/09/22 05:16 Microbiology: Microbiology 12/07/22 08:15 Sputum, Expectorated/Coughed Gram Stain - Final 12/07/22 08:15 Sputum, Expectorated/Coughed Respiratory Culture - Final Presumptive C albicans 12/05/22 14:40 Blood Culture (Wb) #2 - Right Hand Blood Culture - Preliminary No growth in 48 hours. 12/05/22 14:40 Blood Culture (Wb) - Anticubital Left Blood Culture - Preliminary No growth in 48 hours. 12/05/22 15:21 Mucosa - Nasopharyngeal Respiratory Panel (PCR) - Final 12/05/22 15:21 Nasal Secretion SARS-CoV-2 Antigen (Rapid) - Final D/C Instructions Discharge Diet: No restrictions Call your doctor if you observe: Shortness of breath Meaningful Use Info Meaningful Use Diagnoses (Choose all that apply): None applicable Discharge Plan Admission Admit Date/Time: 12/05/22 16:18 Primary Reason for Your Visit: COPD exacerbation Attending Provider: Betito Carmen Primary Care Provider: Caroline Tejeda Consulting Providers: Jorge Tucker ; Luis Hernández ; Jerrell Mann ; Adrien Richey ; Delilah Benoit NP ; Digna Bustamante ; Jose Carlos Pak ; Arun Alexandre Discharge Orders/Prescriptions Prescriptions: New Ensure Plus High Protein 0.08 gram-1.5 kcal/mL Liquid 120 ml PO 4X/DAY Qty: 60 0RF Mucus Relief ER 1,200 mg Tablet Extended Release 12hr 1,200 mg PO BID Qty: 20 0RF metoprolol tartrate 100 mg Tablet 100 mg PO BID Qty: 60 0RF Continued tamsulosin [Flomax] 0.4 mg capsule 0.4 mg PO QHS (DME) Handicap Placard Qty: 1 0RF Rx Instructions: expires 11/25/2027 Combivent Respimat 20-100 mcg/actuation mist 1 puff INHALATION Q6H PRN (Reason: Shortness Of Breath) Rx Instructions: INHALE 1 PUFF BY MOUTH EVERY 6 HOURS NEEDED. MAX OF 6 PUFFS IN 24 HOURS azithromycin 250 mg tablet 250 mg PO MOWEFR Rx Instructions: 250 mg PO three times weekly, Fri while patient is taking Levaquin. albuterol sulfate 1.25 mg/3 mL solution for nebulization 1.25 mg inhalation Q4H roflumilast [Daliresp] 500 mcg tablet 500 mcg PO DAILY Spiriva Respimat 2.5 mcg/actuation mist 2 puff INHALATION QDAY Eliquis 5 mg tablet 5 mg PO BID fluticasone furoate-vilanterol [Breo Ellipta] 200-25 mcg/dose blister with device 1 inh inhalation DAILY ferrous sulfate [iron] 325 mg (65 mg iron) Tablet 325 mg PO DAILY albuterol sulfate [ProAir HFA] 90 mcg/actuation HFA aerosol inhaler 2 puff inhalation Q6H PRN (Reason: shortness of breath or wheezing) Qty: 18 6RF Changed prednisone 10 mg tablet 10 mg PO DAILY Qty: 60 0RF Rx Instructions: 4 tabs daily for 3 days, then 3 tabs daily for 3 days, then 2 tabs daily for 3 days, then 1 tab daily Discontinued metoprolol tartrate 50 mg tablet 75 mg PO BID levofloxacin 500 mg tablet 500 mg PO DAILY No Action prednisone 50 mg tablet 50 mg PO DAILY Referrals / Follow Up: Luis Hernández DO [Med Staff - Active Staff] - Within 1 Month Tj Massey MD [Med Staff - Active Staff] - 12/12/22 10:30 am Caroline Tejeda PA [Primary Care Provider] - Within 2 Weeks Milena Yousif [Pharmacist] - Disposition Disposition (needs filled in before D/C Order can be placed): Home, Self Care Charges/Coding Visit Charges Inpatient E&M: 23750 Disch Hosp >30min
--- NOTE | 2022-12-10 14:57 | CASEMGMT ---
KIRILL CM to follow-up with patient. Patient has order for discharge. Patient is maintaining on his 3lpm of oxygen that he wears at home. Patient denies further needs at this time. Patient aware to have family bring oxygen tank from home for discharge. Patient had no further questions or concerns at this time.
[2022-12-10] MEDS: 0.9% Saline Lock 10 ML Syringe IV (15:00)
== END 2022-12-10 18:20 | disposition home or self-care (01) | DRG 189 ==
LOC: ED 16:23 → PCU 16:50
PROVIDERS: Family Medicine; Internal Medicine; Internal Medicine Critical Care Medicine; Admitting Provider Internal Medicine; Emergency Provider Emergency Medicine; PCP Physician Assistant
DX: J96.21 Acute and chronic respiratory failure with hypoxia (principal); E43 Unspecified severe protein-calorie malnutrition; C79.51 Secondary malignant neoplasm of bone; C78.5 Secondary malignant neoplasm of large intestine and rectum; J44.1 Chronic obstructive pulmonary disease with (acute) exacerbation; C34.12 Malignant neoplasm of upper lobe, left bronchus or lung; Z68.1 Body mass index [BMI] 19.9 or less, adult; I48.0 Paroxysmal atrial fibrillation; J96.22 Acute and chronic respiratory failure with hypercapnia; I10 Essential (primary) hypertension; D50.9 Iron deficiency anemia, unspecified; R91.8 Other nonspecific abnormal finding of lung field; Z99.81 Dependence on supplemental oxygen; Z79.01 Long term (current) use of anticoagulants; Z79.899 Other long term (current) drug therapy; Z87.891 Personal history of nicotine dependence
CPT/HCPCS: 36415; 36600; 71045; 78815; 80048; 80053; 80202; 82803; 83605; 83735; 83880; 84100; 84484; 85025; 87040; 87070; 87205; 87426; 87633; 87641; 93005; 94002; 94003; 94640; 94762; 97802; 97803; 99252; 99285; A9552; J7040; J7050; A4216; G0463

== ENCOUNTER 2022-12-11 17:06 | Inpatient (IN) | payer MEDICARE, MEDICAID, SELFPAY ==
[2022-12-11] VITALS (17 sets, daily range): BP systolic 115–165; BP diastolic 73–98; PULSE 81–128; RESP 12–31; TEMP 35.9–36.9; O2SAT 97–100; BMI 23.8; BMI 18.9
--- NOTE | 2022-12-11 17:21 | EKG12_ITS ---
Test Reason : Blood Pressure : / mmHG Vent. Rate : 096 BPM Atrial Rate : 096 BPM P-R Int : 126 ms QRS Dur : 076 ms QT Int : 334 ms P-R-T Axes : 077 085 088 degrees QTc Int : 421 ms Sinus rhythm with Premature atrial complexes Nonspecific T wave abnormality Abnormal ECG Confirmed by DENICE CH, KATHARINE ([id number]), video editor BLANCO HOLLIS ([id number]) on 12/13/2022 12:38:56 PM Referred By: Confirmed By:KATHARINE GALDAMEZ MD
--- NOTE | 2022-12-11 17:23 | ED.VIS.DYS ---
HPI History of Present Illness Chief Complaint: Shortness of Breath Narrative Narrative: 67-year-old male past medical history of COPD, CHF, wears 3 L of oxygen at home, quit smoking 5 years ago. He presents with 2 days of increasing shortness of breath. History and physical is mildly limited secondary to him being placed on BiPAP upon arrival to the emergency department. He states he has been more short of breath over the last 2 days. He denies any fevers or chills. He was intubated perhaps 7 months ago, but is unsure if he wants to be intubated again for his breathing difficulties. He does see a casino enforcement agent. He states he does not have to increase his oxygen over the last 2 days, but presents with more increasing shortness of breath. No chest pain or leg swelling. [facility] Medical History (Updated 12/11/22 @ 19:57 by Bart Gurrola MD) Acute exacerbation of chronic obstructive pulmonary disease Acute non-ST elevation myocardial infarction (NSTEMI) Acute on chronic respiratory failure with hypoxemia Acute respiratory failure with hypoxemia BPH (benign prostatic hypertrophy) Bronchitis Chronic hypoxemic respiratory failure Chronic hypoxemic respiratory failure COPD (chronic obstructive pulmonary disease) Cough Dehydration Emphysema lung End stage chronic obstructive pulmonary disease End stage chronic obstructive pulmonary disease History of alcohol abuse History of tobacco use Hyponatremia Hypoxia Lung cancer Lung mass Malignant neoplasm of upper lobe, left bronchus or lung Mass of left lung Nicotine dependence, cigarettes, in remission Parainfluenza infection Paroxysmal A-fib Shortness of breath Squamous cell lung cancer Stage 4 very severe COPD by GOLD classification Stage 4 very severe COPD by GOLD classification Throat irritation Tobacco dependence Tobacco dependence in remission Wheezing Home Medications tamsulosin 0.4 mg capsule (Flomax) 0.4 mg PO QHS prostate 08/02/20 [History Last Taken 12/04/22] Handicap Placard #1 ea 11/25/22 [Rx Last Taken Unknown] albuterol sulfate 90 mcg/actuation aerosol inhaler (ProAir HFA) 2 puff inhalation Q6H PRN shortness of breath or wheezing #18 grams 11/28/22 [Rx Last Taken 12/05/22] albuterol sulfate 1.25 mg/3 mL solution for nebulization 1.25 mg inhalation Q4H SHORTNESS OF BREATH 12/05/22 [History Last Taken 12/05/22] apixaban 5 mg tablet (Eliquis) 5 mg PO BID BLOOD THINNER 12/05/22 [History Last Taken 12/05/22] azithromycin 250 mg tablet 250 mg PO MOWEFR ANTIBIOTIC 12/05/22 [History Last Taken Unknown] ferrous sulfate 325 mg (65 mg iron) tablet (iron) 325 mg PO DAILY SUPPLEMENT 12/05/22 [History Last Taken 12/05/22] fluticasone furoate 200 mcg-vilanterol 25 mcg/dose inhalation powder (Breo Ellipta) 1 inh inhalation DAILY COPD 12/05/22 [History Last Taken 12/05/22] ipratropium 20 mcg-albuterol 100 mcg/actuation mist for inhalation (Combivent Respimat) 1 puff inhalation Q6H PRN Shortness Of Breath 12/05/22 [History Last Taken 12/05/22] prednisone 50 mg tablet 50 mg PO DAILY STEROID 12/05/22 [History Last Taken 12/05/22] roflumilast 500 mcg tablet (Daliresp) 500 mcg PO DAILY COPD 12/05/22 [History Last Taken 12/05/22] tiotropium bromide 2.5 mcg/actuation mist for inhalation (Spiriva Respimat) 2 puff inhalation QDAY COPD 12/05/22 [History Last Taken 12/05/22] food supplemt, lactose-reduced 0.08 gram-1.5 kcal/mL oral liquid (Ensure Plus High Protein) 120 ml PO 4X/DAY #60 BOTTLES 12/10/22 [Rx Last Taken Unknown] guaifenesin 1,200 mg tablet, extended release 12 hr (Mucus Relief ER) 1,200 mg PO BID #20 tabs 12/10/22 [Rx Last Taken Unknown] metoprolol tartrate 100 mg tablet 100 mg PO BID #60 tabs 12/10/22 [Rx Last Taken Unknown] prednisone 10 mg tablet 10 mg PO DAILY STEROID #60 tabs 12/10/22 [Rx Last Taken Unknown] Allergy/AdvReac Type Severity Reaction Status Date / Time No Known Allergies Allergy Verified 12/05/22 14:42 Family History Mother Diabetes Father Lung cancer Surgical History S/P aneurysm repair Surgical History no surgical history Social History Smoking Status: Former smoker quit date: 10/20/16 pack-years: 43 second hand exposure: Yes alcohol intake: never substance use type: does not use ROS ROS ED ROS Narrative Constitutional: No fever, no chills. HEENT: No sore throat. No neck pain. No loss of vision. No rhinorrhea. Cardiovascular: No chest pain. No palpitations. No pedal edema. Respiratory: No cough, positive shortness of breath with dyspnea on exertion. Abdominal: No abdominal pain. No nausea. No vomiting. Genitourinary: No dysuria. No hematuria. Musculoskeletal: No myalgias. No arthralgias. Neurologic: No headaches. No dizziness. No lightheadedness. Skin: No rash. No change in color. Psychiatric: No depression. No anxiety. EXAM Physical Exam Narrative Exam Narrative: Afebrile. Vital signs noted. Mild cachexia. HEENT: Normocephalic. Atraumatic. PERRL, EOMI. Neck soft and supple. No point tenderness or step off. Cardiovascular: Positive tachycardia no murmurs, rubs, or gallops appreciated. Respiratory: Positive tachypnea. Decreased breath sounds bilateral bases with coarse breath sounds and rhonchi bilaterally, moving a fair amount of air. On BiPAP. Gastrointestinal: Abdomen soft, nontender, with normoactive bowel sounds. No rebound or guarding. Neurological: Awake. Alert. Nonfocal, nonlateralizing. Skin: No rash. Normal color. No pallor. Musculoskeletal: No pedal edema. Full range of motion extremities. Const Vital Signs: 12/11/22 17:07 12/11/22 17:10 12/11/22 17:10 Temperature 98.4 F 98.4 F Temperature Source Temporal Temporal Pulse Rate 114 H 106 H 106 H Respiratory Rate 26 H 28 H 28 H Respiratory Effort Respiratory Depth Respiratory Pattern Blood Pressure 165/78 H 165/78 H 165/78 H Blood Pressure Mean 107 107 107 Pulse Ox 99 100 100 Oxygen Delivery Method Bi-pap Bi-pap Bi-pap Oxygen Flow Rate (L/min) Fraction of Inspired Oxygen (FIO2) 12/11/22 17:10 12/11/22 17:29 12/11/22 17:15 Temperature Temperature Source Pulse Rate 99 95 Respiratory Rate 28 H 20 H Respiratory Effort Short of Breath Labored Respiratory Depth Shallow Respiratory Pattern Tachypnea Normal Tachypnea Blood Pressure Blood Pressure Mean Pulse Ox 100 Oxygen Delivery Method Oxygen Flow Rate (L/min) Fraction of Inspired Oxygen (FIO2) 40 12/11/22 18:42 12/11/22 18:43 12/11/22 19:22 Temperature 96.6 F L 96.6 F L Temperature Source Temporal Temporal Pulse Rate 114 H 114 H Respiratory Rate 24 H 24 H Respiratory Effort Respiratory Depth Respiratory Pattern Blood Pressure 164/92 H 164/92 H Blood Pressure Mean 116 116 Pulse Ox 100 100 100 Oxygen Delivery Method Bi-pap Bi-pap Nasal Cannula Oxygen Flow Rate (L/min) 3 Fraction of Inspired Oxygen (FIO2) 12/11/22 19:38 12/11/22 20:14 Temperature 98.4 F Temperature Source Temporal Pulse Rate 128 H 110 H Respiratory Rate 24 H 18 Respiratory Effort Respiratory Depth Respiratory Pattern Blood Pressure 151/79 H 151/79 H Blood Pressure Mean 103 103 Pulse Ox 100 100 Oxygen Delivery Method Nasal Cannula Bi-pap Oxygen Flow Rate (L/min) 3 Fraction of Inspired Oxygen (FIO2) MDM MDM MDM Narrative Medical decision making narrative: I reviewed his EMR, he has history of lung carcinoma. Additionally, he was just discharged from the hospital yesterday. In the differential diagnosis is COPD exacerbation versus CHF exacerbation or combination of the 2. I wrote for Solu-Medrol, but elia has already given 125 mg intravenously. He was placed on BiPAP by respiratory given his emergent need. I reviewed his laboratory work, he has an elevated white count of 15.3, but patient did state that he is currently taking steroids. Hemoglobin is stable at 9.8. Platelet count normal at 346. His electrolyte panel does show elevated sodium of 146, normal potassium of 4.4, BUN elevated at 22 with creatinine of 0.64. Glucose appropriately elevated at 121 with a normal anion gap/low at 4. While his BNP is elevated at 294, this is his baseline. His high-sensitivity troponin is 71, but still below 78 for males but is been above the normal limits in the past. Chest x-ray interpreted by myself shows COPD and emphysematous changes, and there is a left upper lobe mass. In review of radiology, they state it is concerning for neoplasm, but I reviewed the his chest x-rays in the past and it has been present, and known to the patient. EKG interpreted by myself demonstrates normal sinus rhythm at 96 bpm with PACs, but no acute ST changes. No STEMI. Patient was weaned off BiPAP, but he states that he gets to panting. Respiratory therapist is familiar with the patient, and he was recently admitted to the hospital for a week. Patient is concerned because he lives alone and he is having increasing shortness of breath. I discussed the patient with Dr. Cardozo for admission. It was felt that he required ICU, as he became more tachypneic and will be placed back on BiPAP. He will be admitted for his respiratory failure. Critical care time 33 minutes. Disposition is admit in guarded condition. Lab Data Attestation: I reviewed the patient's lab results. Labs: Laboratory Results - last 24 hr 12/11/22 12/11/22 12/11/22 17:10 17:10 17:10 WBC 15.3 H RBC 3.19 L Hgb 9.8 L Hct 33.7 L MCV 105.6 H MCH 30.7 MCHC 29.1 L D RDW Std Deviation 54.3 H RDW Coeff of Fe 14.0 Plt Count 346 MPV 9.9 Immature Gran % (Auto) 0.500 Neut % (Auto) 85.7 H Lymph % (Auto) 6.2 L Greenlee % (Auto) 7.5 Eos % (Auto) 0.0 Baso % (Auto) 0.1 Absolute Neuts (auto) 13.1 H Absolute Lymphs (auto) 0.94 Nucleated RBC % 0 Sodium 146 H Potassium 4.4 Chloride 107 Carbon Dioxide 35.0 H Anion Gap 4 L BUN 22 H Creatinine 0.64 L Estim Creat Clear Calc 63.80 Est GFR (MDRD) Af Amer 160 Est GFR (MDRD) Non-Af 132 BUN/Creatinine Ratio 34.4 H Glucose 121 H Calcium 9.7 Phosphorus Magnesium Troponin I High Sens 71 B-Natriuretic Peptide 294.1 H 12/11/22 17:10 WBC RBC Hgb Hct MCV MCH MCHC RDW Std Deviation RDW Coeff of Fe Plt Count MPV Immature Gran % (Auto) Neut % (Auto) Lymph % (Auto) Greenlee % (Auto) Eos % (Auto) Baso % (Auto) Absolute Neuts (auto) Absolute Lymphs (auto) Nucleated RBC % Sodium Potassium Chloride Carbon Dioxide Anion Gap BUN Creatinine Estim Creat Clear Calc Est GFR (MDRD) Af Amer Est GFR (MDRD) Non-Af BUN/Creatinine Ratio Glucose Calcium Phosphorus 3.7 Magnesium 2.4 Troponin I High Sens B-Natriuretic Peptide Radiography Diagnostic Testing: Clinical Impression(s) from Imaging Studies Chest X-Ray 12/11/22 17:55 IMPRESSION: Suspicious for left upper lobe neoplasm. No acute cardiopulmonary pathology Electronically Signed: George Ramirez MD at 18:10 EST Reading Location ID and State: [facility] / [place] , Service support , Critical Care Time Critical Care Time: Yes Critical care time (excluding procedures): 30-74 minutes (33), Including time spent:, Discussing w/Patient &/or Family/Hammerer, Discussing w/Consultants, Arranging Admission or Transfer and Performing Direct Patient Care at Bedside Discharge Plan Dx/Rx/DC Orders Clinical Impression: Respiratory failure, COPD exacerbation, Mass of upper lobe of left lung Disposition Disposition: Acute Care Hospital [facility]
[2022-12-11] MEDS: Ipratropium/Albuterol Sulfate 3 ML AMPUL.NEB INHALATION ×2 (17:27→22:49)
[2022-12-11 17:30] LABS: Absolute Lymphocyte Count 0.94 X10^3/uL (0.83-4.51); Absolute Neutrophil Count 13.1 X10^3/uL (2.0-7.7); Basophil# 0.01 X10^3/uL; Basophil% 0.1 % (0-1); Hematocrit 33.7 % (40-54); Hemoglobin 9.8 g/dL (13.0-16.5); Lymphocyte # 0.94 X10^3/ul (0.83-4.51); Lymphocyte % 6.2 % (19-41); Mean Corp Hgb Conc 29.1 g/dL (32-36); Mean Corpuscular Hgb 30.7 pg (27.0-32.0); Mean Corpuscular Volume 105.6 fL (80-94); Mean Platelet Vol. 9.9 fl (6.2-12.0); Monocyte# 1.14 X10^3/uL; Monocyte% 7.5 % (0-10); NRBC Flagged by Analyzer 0 % (0-5); Neutrophil # 13.11 X10^3/uL (2.7-7.7); Neutrophil % 85.7 % (47-70); Platelet Count 346 K/mm3 (150-450); RBC Distribution Width SD 54.3 fl (35.1-43.9); Red Blood Count 3.19 M/mm3 (4.6-6.2); White Blood Count 15.3 K/mm3 (4.4-11.0)
[2022-12-11 17:48] LABS: Anion Gap 4 (5-15); BUN 22 mg/dL (7-18); BUN/Creat Ratio 34.4 RATIO (10-20); Calcium,Total 9.7 mg/dL (8.5-10.1); Chloride 107 mmol/L (98-107); Creatinine, Serum 0.64 mg/dL (0.70-1.30); EST Glomerular Filtration Rate 132 mL/min (>60); Est Glom Filt Rate - Afr Amer 160 mL/min (>60); Glucose 121 mg/dL (74-106); Potassium 4.4 mmol/L (3.5-5.1); Sodium Level 146 mmol/L (136-145); Troponin-I HS 71 pg/mL (3.0-78.0)
--- NOTE | 2022-12-11 17:55 | RAD_ITS ---
STUDY: X-RAY CHEST REASON FOR EXAM: Male, 67 years old. Shortness of Breath TECHNIQUE: AP portable COMPARISON: December 05, 2022 FINDINGS: Lungs are mildly hyperinflated but clear.. There is a mass in left upper lobe measuring approximately 5.1 x 3 cm suspicious for neoplasm. There is no demonstrated pleural abnormality. Normal size heart. Normal mediastinum and armando. Normal visualized pulmonary arteries. Mildly calcified aortic arch and descending thoracic aorta. Dorsal spine demonstrates mild scoliosis and degenerative change. Normal visualized ribs, clavicles, and shoulders. There is no demonstrated abnormality of the visualized soft tissue structures of the upper abdomen. No significant change since prior study RAD/Chest 1 View (Portable) IMPRESSION: Suspicious for left upper lobe neoplasm. No acute cardiopulmonary pathology Electronically Signed: George Ramirez MD at 18:10 EST ,
[2022-12-11 18:02] LABS: BNP,B-Type NATRIURETIC PEPTIDE 294.1 pg/mL (0-100)
[2022-12-11 20:03] LABS: Magnesium 2.4 mg/dL (1.6-2.6); Phosphorus 3.7 mg/dL (2.5-4.9)
[2022-12-11 20:23] LABS: Procalcitonin 0.11 ng/mL (0.00-0.09)
[2022-12-11 20:30] LABS: Allen Test Positive; Base Excess 8 mmol/L (-2 to +2); Bicarbonate 33.7 mmol/L (22-26); Blood Gas Specimen Type ART; O2 Delivery Device Cannula; PO2 82 mmHG (75-100); SITE R Radial; SO2 95 % (95-99); Total Carbon Dioxide 36 mmol/L; pCO2 62.8 mmHg (35-45); pH 7.34 (7.35-7.45)
--- NOTE | 2022-12-11 20:34 | PCM.HP.STD ---
HPI - General General Date of Admission: 12/11/22 Date of Service: 12/11/22 Chief Complaint: Recurrent dyspnea, wheezing, hypoxia. 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 Massey recommendation for iliac biopsy unfortunately radiology noted that these lesions were not amenable to a CT-guided biopsy discharged on prednisone taper and continued home inhalers with plan to follow-up with pulmonary medicine, PCP as well as oncology 12/12/2022 10:30 AM who now represents to the [facility] ED on 12/11/22 with history of increased dyspnea since his discharge on 12/10/2022 with recurrent wheezing, pursed lip breathing and difficulty completing any sentences prompting EMS call for immediately placed him on BiPAP on route to the hospital with no recent fevers or chills prompting repeat ED evaluation. Work-up in the ED included T98.4, heart rate 114, BP 165/78, respiratory rate 26, 99% on room air on BiPAP upon presentation at 40% with most recent vital signs heart rate 114, BP 164/92, respiratory rate 24, 100% on BiPAP, CBC with WC 15.3, hemoglobin 9.8, platelet 346 with left shift, BMP with sodium 146, CO2 35, anion gap 4, BUN/creatinine 22/0.64, glucose 121, troponin 71, BNP 294.1, chest x-ray with findings suspicious for left upper lobe neoplasm with no acute cardiopulmonary findings otherwise, SARS COVID and influenza antigens negative. On route to hospital per EMS patient was administered Solu-Medrol 125 mg IV x1. In the ED patient was administered DuoNeb therapy. [facility] Medical History (Updated 12/11/22 @ 20:[address] Emily Cardozo MD) BPH (benign prostatic hypertrophy) Chronic hypoxemic respiratory failure COPD (chronic obstructive pulmonary disease) Emphysema lung End stage chronic obstructive pulmonary disease History of alcohol abuse History of tobacco use Malignant neoplasm of upper lobe, left bronchus or lung Paroxysmal A-fib Squamous cell lung cancer Stage 4 very severe COPD by GOLD classification Home Medications tamsulosin 0.4 mg capsule (Flomax) 0.4 mg PO QHS prostate 08/02/20 [History Last Taken 12/04/22] Handicap Placard #1 ea 11/25/22 [Rx Last Taken Unknown] albuterol sulfate 90 mcg/actuation aerosol inhaler (ProAir HFA) 2 puff inhalation Q6H PRN shortness of breath or wheezing #18 grams 11/28/22 [Rx Last Taken 12/05/22] albuterol sulfate 1.25 mg/3 mL solution for nebulization 1.25 mg inhalation Q4H SHORTNESS OF BREATH 12/05/22 [History Last Taken 12/05/22] apixaban 5 mg tablet (Eliquis) 5 mg PO BID BLOOD THINNER 12/05/22 [History Last Taken 12/05/22] azithromycin 250 mg tablet 250 mg PO MOWEFR ANTIBIOTIC 12/05/22 [History Last Taken Unknown] ferrous sulfate 325 mg (65 mg iron) tablet (iron) 325 mg PO DAILY SUPPLEMENT 12/05/22 [History Last Taken 12/05/22] fluticasone furoate 200 mcg-vilanterol 25 mcg/dose inhalation powder (Breo Ellipta) 1 inh inhalation DAILY COPD 12/05/22 [History Last Taken 12/05/22] ipratropium 20 mcg-albuterol 100 mcg/actuation mist for inhalation (Combivent Respimat) 1 puff inhalation Q6H PRN Shortness Of Breath 12/05/22 [History Last Taken 12/05/22] prednisone 50 mg tablet 50 mg PO DAILY STEROID 12/05/22 [History Last Taken 12/05/22] roflumilast 500 mcg tablet (Daliresp) 500 mcg PO DAILY COPD 12/05/22 [History Last Taken 12/05/22] tiotropium bromide 2.5 mcg/actuation mist for inhalation (Spiriva Respimat) 2 puff inhalation QDAY COPD 12/05/22 [History Last Taken 12/05/22] food supplemt, lactose-reduced 0.08 gram-1.5 kcal/mL oral liquid (Ensure Plus High Protein) 120 ml PO 4X/DAY #60 BOTTLES 12/10/22 [Rx Last Taken Unknown] guaifenesin 1,200 mg tablet, extended release 12 hr (Mucus Relief ER) 1,200 mg PO BID #20 tabs 12/10/22 [Rx Last Taken Unknown] metoprolol tartrate 100 mg tablet 100 mg PO BID #60 tabs 12/10/22 [Rx Last Taken Unknown] prednisone 10 mg tablet 10 mg PO DAILY STEROID #60 tabs 12/10/22 [Rx Last Taken Unknown] Allergy/AdvReac Type Severity Reaction Status Date / Time No Known Allergies Allergy Verified 12/05/22 14:42 Family History Mother Diabetes Father Lung cancer Surgical History S/P aneurysm repair Surgical History no surgical history Social History (Updated 12/11/22 @ 20:[address] Emily Cardozo MD) Smoking Status: Former smoker quit date: 10/20/16 pack-years: 43 second hand exposure: Yes alcohol intake: former substance use type: does not use ROS ROS Narrative Admission Review of Systems: CONSTITUTIONAL: No weight loss, fever, chills, + weakness or fatigue. HEENT: Eyes: No visual loss, blurred vision, double vision or yellow sclerae. Ears, Nose, Throat: No hearing loss, sneezing, congestion, runny nose or sore throat. SKIN: No rash or itching, lesions, wounds. CARDIOVASCULAR: No chest pain, chest pressure or chest discomfort, palpitations, edema, orthopnea, syncopal events. RESPIRATORY: + shortness of breath, cough without marked sputum but difficulty bringing anything up, wheezing, No hemoptysis. GASTROINTESTINAL: + anorexia, No nausea, vomiting or diarrhea, abdominal pain, melena, BRBPR. GENITOURINARY: No dysuria, frequency, urgency or retention. NEUROLOGICAL: No headache, dizziness, syncope, paralysis, ataxia, numbness or tingling in the extremities, focal weakness, change in bowel or bladder control, seizure. MUSCULOSKELETAL: + muscle, back pain, joint pain or stiffness. HEMATOLOGIC: + anemia, bleeding or bruising. LYMPHATICS: No enlarged nodes. No history of splenectomy. PSYCHIATRIC: No history of depression or anxiety. ENDOCRINOLOGIC: No reports of sweating, cold or heat intolerance. No polyuria or polydipsia. ALLERGIES: No history of asthma, hives, eczema or rhinitis. Vital Signs Vital Signs Vital Signs: 12/11/22 17:07 12/11/22 17:10 12/11/22 17:10 Temperature 98.4 F 98.4 F Temperature Source Temporal Temporal Pulse Rate 114 H 106 H 106 H Respiratory Rate 26 H 28 H 28 H Respiratory Effort Respiratory Depth Respiratory Pattern Blood Pressure 165/78 H 165/78 H 165/78 H Blood Pressure Mean 107 107 107 Pulse Ox 99 100 100 Oxygen Delivery Method Bi-pap Bi-pap Bi-pap Oxygen Flow Rate (L/min) Fraction of Inspired Oxygen (FIO2) 12/11/22 17:10 12/11/22 17:29 12/11/22 17:15 Temperature Temperature Source Pulse Rate 99 95 Respiratory Rate 28 H 20 H Respiratory Effort Short of Breath Labored Respiratory Depth Shallow Respiratory Pattern Tachypnea Normal Tachypnea Blood Pressure Blood Pressure Mean Pulse Ox 100 Oxygen Delivery Method Oxygen Flow Rate (L/min) Fraction of Inspired Oxygen (FIO2) 40 12/11/22 18:42 12/11/22 18:43 12/11/22 19:22 Temperature 96.6 F L 96.6 F L Temperature Source Temporal Temporal Pulse Rate 114 H 114 H Respiratory Rate 24 H 24 H Respiratory Effort Respiratory Depth Respiratory Pattern Blood Pressure 164/92 H 164/92 H Blood Pressure Mean 116 116 Pulse Ox 100 100 100 Oxygen Delivery Method Bi-pap Bi-pap Nasal Cannula Oxygen Flow Rate (L/min) 3 Fraction of Inspired Oxygen (FIO2) 12/11/22 19:38 Temperature Temperature Source Pulse Rate 128 H Respiratory Rate 24 H Respiratory Effort Respiratory Depth Respiratory Pattern Blood Pressure 151/79 H Blood Pressure Mean 103 Pulse Ox 100 Oxygen Delivery Method Nasal Cannula Oxygen Flow Rate (L/min) 3 Fraction of Inspired Oxygen (FIO2) Weight Weight: 147 lb 7.828 oz Body Mass Index (BMI) 23.8 Physical Exam Narrative Physical Examination: General: awake, alert, oriented x 3 and cooperative, seated upright in ED bed, recent attempt to de-escalate off BiPAP however patient has significant accessory muscle usage, pursed lip breathing, only able to speak in 1 or 2 word sentences with evident respiratory distress, currently discussed with RT and ABG being requested as well as patient being placed again back on BiPAP HEENT: AT/NC, EOMI, PERRLA, dry MM, no carotid bruits or JVD noted. Lungs: Severely diffusely diminished, evidence of respiratory distress is noted with accessory muscle usage, 1-2 word sentences with pursed lip breathing, expiratory wheezing in the posterior lung tamayo, difficulty clearing his throat and coughing secondary to his debility and weakness, no obvious rales or rhonchi. Heart: Tachycardic with regular rhythm; no gallop, rub audible. Abdomen: soft, thin cachectic habitus, NTTP, ND, distant normal BS, no HSM. Extremities: no cyanosis, no clubbing, mild ankle edema bilaterally nonpitting Neurological: patient awake, alert, oriented as noted, cognitive function mildly decreased from baseline given respiratory distress but near intact; pupils equally reactive to light and accommodation; cranial nerves grossly normal, moving all 4 extremities, no focal deficits, strength severely global decrease secondary to acute presentation. Psychiatric: affect appears fatigued, evidence of overt respiratory distress noted, no acute evidence of depressive or anxiety feelings. Results Lab / Micro Data Result Diagrams: 12/11/22 17:10 12/11/22 17:10 Labs: Laboratory Results - last 24 hr 12/11/22 17:10: WBC 15.3 H, RBC 3.19 L, Hgb 9.8 L, Hct 33.7 L, MCV 105.6 H, MCH 30.7, MCHC 29.1 L D, RDW Std Deviation 54.3 H, RDW Coeff of Fe 14.0, Plt Count 346, MPV 9.9, Immature Gran % (Auto) 0.500, Neut % (Auto) 85.7 H, Lymph % (Auto) 6.2 L, Graham % (Auto) 7.5, Eos % (Auto) 0.0, Baso % (Auto) 0.1, Absolute Neuts (auto) 13.1 H, Absolute Lymphs (auto) 0.94, Nucleated RBC % 0 12/11/22 17:10: Sodium 146 H, Potassium 4.4, Chloride 107, Carbon Dioxide 35.0 H, Anion Gap 4 L, BUN 22 H, Creatinine 0.64 L, Estim Creat Clear Calc 63.80, Est GFR (MDRD) Af Amer 160, Est GFR (MDRD) Non-Af 132, BUN/Creatinine Ratio 34.4 H, Glucose 121 H, Calcium 9.7, Troponin I High Sens 71 12/11/22 17:10: B-Natriuretic Peptide 294.1 H Micro: Microbiology 12/11/22 17:26 Nasal Secretion SARS-CoV-2 & FLU Antigen (Rapid) - Final Radiology Impression Chest X-Ray 12/11/22 17:55 IMPRESSION: Suspicious for left upper lobe neoplasm. No acute cardiopulmonary pathology Electronically Signed: George Ramirez MD at 18:10 EST , Assessment & Plan Assessment/Plan (1) Respiratory failure: PLAN: Plan The patient is a 67 y/o M w/ PMHx: History of remote brain aneurysm, Stage IV COPD with Chronic Hypoxic Respiratory Failure (4L NC), Former tobacco use, Former EtOH Abuse, BPH, Chronic anemia/Fe deficiency anemia, PAF on eliquis regimen, HTN, Severe Chronic Protein-Calorie Malnutrition, recent diagnosis Squamous Cell Lung discharged on 12/10/22 following admission for acute hypoxic on chronic hypoxic/hypercapnic respiratory failure secondary to COPD exacerbation and diagnosis of squamous cell carcinomas with metastatic disease who now represents to the [facility] ED on 12/11/22 with history of increased dyspnea since his discharge on 12/10/2022 with recurrent wheezing, pursed lip breathing and difficulty completing any sentences prompting EMS call for immediately placed him on BiPAP on route to the hospital with no recent fevers or chills prompting repeat ED evaluation. #1. Recurrent Acute on Chronic Hypoxia and Hypercarbic Respiratory Failure secondary to Acute on Chronic COPD exacerbation complicated by recent Lung CA diagnosis as noted #2: Will admit to the ICU, continue BIPAP placement, request ABG, request Pulmonary evaluation, maintain on oxygen with wean as tolerated to home oxygen supplementation once able to transition off BIPAP, continue ATC duonebs, PRN albuterol, IV methylprednisolone, HOB, IS parameters, recent sputum Cx with C. albicans only but to be cautious will request repeat and full respiratory panel, recommendation per pulmonary during prior admission to complete 7-day antibiotic regimen and given admission 12/05/2022 we will continue antibiotic therapy with levaquin, procalcitonin requested and well as MRSA screen. We will continue patient home Daliresp regimen. #2. Recent diagnosis squamous cell lung cancer with metastatic disease potentially to the rectal vault/rectum and left anterior iliac wing complicated #1: 12/03/2022 PET/CT performed for history of carcinoma of the lung for initial staging noted to be abnormal and indicative of malignant viable neoplasm, increased radiopharmaceutical concentration left upper lobe lung field, enhanced tracer uptake also in the carinal level mediastinum to the level of the midline and left thoracic perihilum does not fulfill quantitative criteria for malignant transformation, increase in radiopharmaceutical concentration manifest in the rectal-rectum vault with recommendation for follow-up CT abdomen pelvis with oral and IV contrast given quantitative degree of uptake, increase in radiopharmaceutical concentration defined in the left anterior iliac wing feels quantitative criteria for viable osseous neoplasm. Established now with Dr. Massey and given re-admission per Pulmonary prior recommendations will request consultation. #3. Recent acute NSTEMI secondary to type II demand secondary to #1 complicated by #2: We will continue ASA, Eliquis, metoprolol, not on statin therapy nor AMANDA inhibitor/ARB. Most recent echocardiogram noted 10/28/2022 with normal LV size, LV systolic function normal, EF 60%. Given recent presentation will cycle cardiac enzymes to be cautious and will request mag level. #4. Chronic severe protein calorie malnutrition: Evidenced by significant muscle and fat loss, evaluated by nutrition recently with this diagnosis, will continue supplementations per their recommendation prior with repeat consultation requested to be cautious. #5. Chronic anemia, macrocytic per MCV, iron deficiency anemia: Admission hemoglobin 9.8, MCV 105.6, baseline prior noted primarily 8-9 although had been 10-11 in the past, will continue iron supplementation, continue to trend CBC. Vitamin B12 and folic acid levels requested. #6. History of brain aneurysm: Noted intervention in 1996, unclear specific type. #7. Hypertension: Continue home regimen including metoprolol, PRN hydralazine. #8. Former tobacco usage: Encourage continued tobacco cessation. #9. Former alcohol abuse: Encouraged continued sobriety. #10. BPH: We will continue patient home Flomax regimen. #11. PAF: We will continue patient home metoprolol and Eliquis regimen. #12. DVT prophylaxis: SCDs, continue patient home Eliquis regimen. #13. CODE status: Patient HCPOA is his daughter Odalys who is present for discussions. Discussed CODE status at length including difference between FULL code, DNR-CCA and DNR-CC status. Following discussions about the differences in these status, requested Full code status eventually. Had mentioned being unsure about intubation to the ED physician which was reviewed. Discussed patient's likely poor prognosis if he suffered a cardiopulmonary arrest and also potential need for tracheostomy if intubated. Advanced Care Planning Face to Face Time: 17 minutes. Admission Evaluation Time spent evaluating chart, patient history, patient evaluation, care planning and discussion with specialists: 75 minutes. Charges/Coding Visit Charges Inpatient E&M: 03600 Init Hosp L3 Procedures Hospitalists Procedures: 51280 Advncd Care Plan 30 Min
[2022-12-11] MEDS: levoFLOXacin IV 750 MG/150 ML BAG 100 MG IV (21:00)
[2022-12-11 21:25] LABS: Troponin-I HS 63 pg/mL (3.0-78.0)
[2022-12-11] MEDS: Metoprolol Tartrate 100 MG Tablet PO (21:48)
[2022-12-11] MEDS: LORazepam 2 MG/ML Syringe 0.5 MG IV (22:45)
[2022-12-11 23:22] LABS: M R Staph aureus DNA By PCR Negative (Negative); Probe Check PASS; Specimen Processing Control PASS
[2022-12-11 23:47] LABS: Troponin-I HS 54 pg/mL (3.0-78.0)
[2022-12-12] VITALS (19 sets, daily range): BP systolic 84–157; BP diastolic 59–110; PULSE 64–109; RESP 12–28; TEMP 36.2–36.7; O2SAT 94–100; BMI 18.5
[2022-12-12] MEDS: Ipratropium/Albuterol Sulfate 3 ML AMPUL.NEB INHALATION ×3 (02:07→11:15)
[2022-12-12 03:47] LABS: Absolute Lymphocyte Count 0.37 X10^3/uL (0.83-4.51); Absolute Neutrophil Count 7.7 X10^3/uL (2.0-7.7); Hematocrit 27.9 % (40-54); Hemoglobin 8.3 g/dL (13.0-16.5); Lymphocyte # 0.37 X10^3/ul (0.83-4.51); Lymphocyte % 4.4 % (19-41); Mean Corp Hgb Conc 29.7 g/dL (32-36); Mean Corpuscular Hgb 30.5 pg (27.0-32.0); Mean Corpuscular Volume 102.6 fL (80-94); Mean Platelet Vol. 9.9 fl (6.2-12.0); Monocyte# 0.33 X10^3/uL; Monocyte% 3.9 % (0-10); NRBC Flagged by Analyzer 0 % (0-5); Neutrophil # 7.71 X10^3/uL (2.7-7.7); Neutrophil % 91.3 % (47-70); POSITIVE DIFFERENTIAL YES; Platelet Count 287 K/mm3 (150-450); Red Blood Count 2.72 M/mm3 (4.6-6.2); White Blood Count 8.4 K/mm3 (4.4-11.0)
[2022-12-12 03:48] LABS: Differential Indicated SCAN CRITERIA MET
[2022-12-12 04:17] LABS: ALB/GLOB Ratio 0.8 RATIO (0.9-2.4); AST(SGOT) 27 U/L (15-37); Alanine Aminotransfer ALT/SGPT 53 U/L (16-61); Albumin, Serum 2.7 g/dL (3.2-5.0); Alkaline Phosphatase 47 U/L (45-117); Anion Gap 1 (5-15); BUN 23 mg/dL (7-18); BUN/Creat Ratio 40.1 RATIO (10-20); Calcium,Total 9.4 mg/dL (8.5-10.1); Chloride 108 mmol/L (98-107); Creatinine, Serum 0.57 mg/dL (0.70-1.30); EST Glomerular Filtration Rate 150 mL/min (>60); Est Glom Filt Rate - Afr Amer 181 mL/min (>60); Globulin 3.5 g/dL (2.2-4.2); Glucose 114 mg/dL (74-106); Potassium 4.9 mmol/L (3.5-5.1); Protein, Total 6.2 g/dL (6.4-8.2); Sodium Level 144 mmol/L (136-145)
[2022-12-12 04:19] LABS: Differential Comment SCANNED
--- NOTE | 2022-12-12 07:13 | PN.HOSP_ITS ---
Reason for Visit Reason for Visit: Diagnoses Respiratory failure, unspecified, unspecified whether with hypoxia or hypercapn ia (12/11/22) Subjective Subjective Patient states he just feels anxious and hyperventilates which leads him to be more short of breath. Was taken off of BiPAP and has maintained sats of 100%. Objective Data Objective Data Vital Signs: Vital Signs Temp Pulse Resp BP Pulse Ox O2 Del Method O2 Flow Rate 36.6 C 77 21 H 148/81 H 99 Bi-pap 3 12/12/22 04:00 12/12/22 07:00 12/12/22 07:00 12/12/22 07:00 12/12/22 07:00 12/12/22 07:00 12/11/22 19:38 FiO2 30 12/12/22 07:00 Oxygen Flow Rate (L/min) 3 Oxygen Delivery Method Bi-pap Weight: 52.3 kg Body Mass Index (BMI) 18.5 Intake & Output: Intake and Output for Last 24 Hours 12/10/22 12/11/22 12/12/22 23:59 23:59 23:59 Intake Total 150 / 180 30 / 30 Output Total 300 / 300 Balance 150 / 80 -270 / -270 Lab / Micro Data Result Diagrams: 12/12/22 03:25 12/12/22 03:25 Labs: Laboratory Results - last 24 hr 12/11/22 17:10: WBC 15.3 H, RBC 3.19 L, Hgb 9.8 L, Hct 33.7 L, MCV 105.6 H, MCH 30.7, MCHC 29.1 L D, RDW Std Deviation 54.3 H, RDW Coeff of Fe 14.0, Plt Count 346, MPV 9.9, Immature Gran % (Auto) 0.500, Neut % (Auto) 85.7 H, Lymph % (Auto) 6.2 L, [place] % (Auto) 7.5, Eos % (Auto) 0.0, Baso % (Auto) 0.1, Absolute Neuts (auto) 13.1 H, Absolute Lymphs (auto) 0.94, Nucleated RBC % 0 12/11/22 17:10: Sodium 146 H, Potassium 4.4, Chloride 107, Carbon Dioxide 35.0 H , Anion Gap 4 L, BUN 22 H, Creatinine 0.64 L, Estim Creat Clear Calc 63.80, Est GFR (MDRD) Af Amer 160, Est GFR (MDRD) Non-Af 132, BUN/Creatinine Ratio 34.4 H, Glucose 121 H, Calcium 9.7, Troponin I High Sens 71 12/11/22 17:10: B-Natriuretic Peptide 294.1 H 12/11/22 17:10: Phosphorus 3.7, Magnesium 2.4 12/11/22 19:53: Procalcitonin 0.11 H 12/11/22 20:55: MRSA (PCR) Negative 12/11/22 21:00: Troponin I High Sens 63 12/11/22 23:19: Troponin I High Sens 54 12/12/22 03:25: WBC 8.4, RBC 2.72 L, Hgb 8.3 L, Hct 27.9 L, MCV 102.6 H, MCH 30.5, MCHC 29.7 L, RDW Std Deviation 52.0 H, RDW Coeff of Fe 14.0, Plt Count 287, MPV 9.9, Immature Gran % (Auto) 0.400, Neut % (Auto) 91.3 H, Lymph % (Auto) 4.4 L, [place] % (Auto) 3.9, Eos % (Auto) 0.0, Baso % (Auto) 0.0, Absolute Neuts (auto) 7.7, Absolute Lymphs (auto) 0.37 L, Nucleated RBC % 0, Differential Comment SCANNED 12/12/22 03:25: Sodium 144, Potassium 4.9, Chloride 108 H, Carbon Dioxide 35.0 H , Anion Gap 1 L, BUN 23 H, Creatinine 0.57 L, Estim Creat Clear Calc 53.20, Est GFR (MDRD) Af Amer 181, Est GFR (MDRD) Non-Af 150, BUN/Creatinine Ratio 40.1 H, Glucose 114 H, Calcium 9.4, Total Bilirubin 0.60, AST 27, ALT 53, Alkaline Phosphatase 47, Total Protein 6.2 L, Albumin 2.7 L, Globulin 3.5, Albumin/Globulin Ratio 0.8 L Micro: Microbiology 12/11/22 20:15 Mucosa - Nasopharyngeal Respiratory Panel (PCR) - Final 12/11/22 19:53 Urine, Clean Catch Legionella Antigen - Final 12/11/22 19:53 Urine, Clean Catch Streptococcus pneumoniae Antigen (M - Final 12/11/22 17:26 Nasal Secretion SARS-CoV-2 & FLU Antigen (Rapid) - Final ABG Data ABG results: ABG 12/11/22 20:24 Specimen Type ART Sample Site R Radial pH 7.34 L Bicarbonate Actual 33.7 H Total CO2 36 Base Excess 8 H O2 Saturation 95 ABG pCO2 62.8 H ABG pO2 82 Marco Test Positive O2 Delivery Device Cannula Liter Flow 3.0 Radiography Diagnostic Testing: Radiology Impression Chest X-Ray 12/11/22 17:55 IMPRESSION: Suspicious for left upper lobe neoplasm. No acute cardiopulmonary pathology Electronically Signed: George Ramirez MD at 18:10 EST , Physical Exam Const Constitutional Narrative: Cachectic. Afebrile. Nontoxic. HEENT head/scalp atraumatic Resp Resp Narrative: Diminished breath sounds bilaterally Cardio regular rate, regular rhythm, S1 normal heart sound and S2 normal heart sound GI normal to inspection, nondistended, normoactive bowel sounds, soft to palpation, non-tender and non-distended Assessment & Plan Assessment/Plan (1) Chronic hypercapnic respiratory failure: PLAN: PCO2 was elevated on ABG but patient had a normal pH and was not hypoxic. Patient's PCO2 was elevated but I do not feel that he had an acute component of hypercapnic respiratory failure but most this is a component of anxiety on top of his advanced COPD. Patient has advanced COPD but this is also been complicated by anxiety as patient himself endorses that he does hyperventilate. Discussed with Dr. Hernández, plan is to continue with the prednisone taper as had previously been prescribed. But also to help with his anxiety we will have Roxanol to help with dyspnea as well as oral lorazepam liquid. Palliative care to follow-up with patient as outpatient. Patient had no documented hypoxia, therefore, hypoxic respiratory failure was ruled out. (2) Squamous cell lung cancer: PLAN: Patient has been scheduled an appointment with oncology for this afternoon. Patient was to see them earlier today but would not be able to make that appointment. Further staging and treatment will be determined by oncology. PLAN: Plan Chronic conditions: * Recent acute NSTEMI secondary to type II demand secondary to #1 complicated by #2: We will continue ASA, Eliquis, metoprolol, not on statin therapy nor AMANDA inhibitor/ARB. Most recent echocardiogram noted 10/28/2022 with normal LV size, LV systolic function normal, EF 60%. Given recent presentation will cycle cardiac enzymes to be cautious and will request mag level. * Chronic severe protein calorie malnutrition: Evidenced by significant muscle and fat loss, evaluated by nutrition recently with this diagnosis, will continue supplementations per their recommendation prior with repeat consultation requested to be cautious. * Chronic anemia, macrocytic per MCV, iron deficiency anemia: Admission hemoglobin 9.8, MCV 105.6, baseline prior noted primarily 8-9 although had been 10-11 in the past, will continue iron supplementation, continue to trend CBC. Vitamin B12 and folic acid levels requested. * History of brain aneurysm: Noted intervention in 1996, unclear specific type. * Hypertension: Continue home regimen including metoprolol, PRN hydralazine. * Former tobacco usage: Encourage continued tobacco cessation. * Former alcohol abuse: Encouraged continued sobriety. * BPH: We will continue patient home Flomax regimen. * PAF: We will continue patient home metoprolol and Eliquis regimen.
[2022-12-12] MEDS: Morphine 2 MG/ML Syringe IV (07:23)
[2022-12-12 08:16] LABS: Allen Test Positive; Base Excess 13 mmol/L (-2 to +2); Bicarbonate 37.9 mmol/L (22-26); Blood Gas Specimen Type ART; FI02 30; O2 Delivery Device BiPAP; PEEP 8; PO2 86 mmHG (75-100); SITE L Radial; SO2 96 % (95-99); Total Carbon Dioxide 40 mmol/L; pCO2 60.5 mmHg (35-45)
[2022-12-12] MEDS: Ferrous Sulfate 325 MG Tablet PO (08:30)
--- NOTE | 2022-12-12 09:24 | EX.PCM.CONCC ---
Assessment & Plan Assessment/Plan (1) Mass of left lung: PLAN: Plan RECOMMENDATIONS: 1. Continue supplemental oxygen per baseline regimen. 2. Antibiotics can be discontinued from my perspective. 3. Transition to prednisone at discharge and resume prednisone taper. 4. Continue scheduled bronchodilators. 5. Outpatient pulmonary follow-up in 2 weeks. 6. The patient needs to be seen by oncology to complete work-up for his newly diagnosed lung cancer. 7. Outpatient referral to palliative care medicine. 8. Provide patient with limited prescriptions for Roxanol and Ativan to address residual air hunger and anxiety, pending follow-up with palliative care medicine. IMPRESSIONS: 1. End-stage COPD with exacerbation I suspect once again that the patient's acute presentation is likely secondary to residual air hunger and anxiety that still exists, despite him being on maximum outpatient inhaler therapy for his end-stage COPD. I have spoke at length with the patient in the past regarding referral to palliative care. Although initially he was reluctant, the patient is now agreeable. I suspect he would likely benefit greatly from being on some form of long-acting opiate therapy and as needed anxiolytics. Aside from that, the patient will be continued on his triple therapy inhaler regimen as an outpatient along with Daliresp and scheduled azithromycin. He has reportedly been compliant with the use of his trilogy machine as well. He should follow-up in the pulmonary medicine clinic 2 weeks after discharge from the hospital. 2. Squamous cell lung carcinoma The patient was recently diagnosed with primary lung CA with probable metastasis. The patient is in need of follow-up with oncology. 3. Chronic hypoxemic respiratory failure Continue 3 L/min of supplemental oxygen, per home regimen. The patient should continue his baseline triple therapy inhaler regimen after discharge. This note was generated with [employer] dictation software. It may contain incorrect words, spelling, and punctuation that were not noted in checking the note before signing. HPI Consult Data Date of Consult: 12/12/22 HPI Narrative Reason for Consultation: Acute on chronic combined respiratory failure HPI Narrative: The patient is a 67-year-old male, with a history as outlined below, who presented to the emergency department on December 11 with progressive shortness of breath. The patient has an established diagnosis of COPD with a history of recurrent hospital admissions for breathing related issues.? He also has chronic hypoxemic respiratory failure with a baseline 3 L/min supplemental oxygen requirement.? He is currently being maintained on a triple therapy inhaler regimen.? The patient does have extensive prior smoking history, but quit completely in December 2016.? The patient does currently utilize a trilogy noninvasive ventilator in his home environment. He is also maintained on Daliresp and azithromycin 3 times weekly. The patient had just been discharged from the hospital on December 10 after being admitted again for a COPD exacerbation. Pulmonary function test from February 2017 demonstrated the presence of a partially reversible very severe large airways obstructive ventilatory defect with associated air trapping and decrease in diffusing capacity. Surface echocardiogram dated December 2016 showed normal LV size and function with an ejection fraction of 65%.? Right ventricular systolic pressure was unable to be estimated. On presentation to the emergency department, the patient was noted to be afebrile and hemodynamically stable.? He was, however, tachycardic and tachypneic. The patient was placed on BiPAP therapy for symptomatic support. Arterial blood gas demonstrated a pH of 7.34 with a PCO2 of 62 and PO2 of 82. Chest x-ray again confirmed a left upper lobe lung mass without any other acute cardiopulmonary process. The patient was placed on scheduled bronchodilators, Levaquin and IV steroids. He was admitted to the medical intensive care unit. As of this morning, the patient has been weaned to BiPAP and is maintaining appropriate oxygen saturations on his baseline 3 L/min. [facility] Medical History (Updated 12/12/22 @ 09:[address] Betito Carmen, ) BPH (benign prostatic hypertrophy) Chronic hypercapnic respiratory failure Chronic hypoxemic respiratory failure COPD (chronic obstructive pulmonary disease) Emphysema lung End stage chronic obstructive pulmonary disease History of alcohol abuse History of tobacco use Malignant neoplasm of upper lobe, left bronchus or lung Paroxysmal A-fib Squamous cell lung cancer Stage 4 very severe COPD by GOLD classification Home Medications tamsulosin 0.4 mg capsule (Flomax) 0.4 mg PO QHS prostate 08/02/20 [History Last Taken 12/04/22] Handicap Placard #1 ea 11/25/22 [Rx Last Taken Unknown] albuterol sulfate 90 mcg/actuation aerosol inhaler (ProAir HFA) 2 puff inhalation Q6H PRN shortness of breath or wheezing #18 grams 11/28/22 [Rx Last Taken 12/05/22] albuterol sulfate 1.25 mg/3 mL solution for nebulization 1.25 mg inhalation Q4H SHORTNESS OF BREATH 12/05/22 [History Last Taken 12/05/22] apixaban 5 mg tablet (Eliquis) 5 mg PO BID BLOOD THINNER 12/05/22 [History Last Taken 12/05/22] azithromycin 250 mg tablet 250 mg PO MOWEFR ANTIBIOTIC 12/05/22 [History Last Taken Unknown] ferrous sulfate 325 mg (65 mg iron) tablet (iron) 325 mg PO DAILY SUPPLEMENT 12/05/22 [History Last Taken 12/05/22] fluticasone furoate 200 mcg-vilanterol 25 mcg/dose inhalation powder (Breo Ellipta) 1 inh inhalation DAILY COPD 12/05/22 [History Last Taken 12/05/22] ipratropium 20 mcg-albuterol 100 mcg/actuation mist for inhalation (Combivent Respimat) 1 puff inhalation Q6H PRN Shortness Of Breath 12/05/22 [History Last Taken 12/05/22] roflumilast 500 mcg tablet (Daliresp) 500 mcg PO DAILY COPD 12/05/22 [History Last Taken 12/05/22] tiotropium bromide 2.5 mcg/actuation mist for inhalation (Spiriva Respimat) 2 puff inhalation QDAY COPD 12/05/22 [History Last Taken 12/05/22] food supplemt, lactose-reduced 0.08 gram-1.5 kcal/mL oral liquid (Ensure Plus High Protein) 120 ml PO 4X/DAY #60 BOTTLES 12/10/22 [Rx Last Taken Unknown] guaifenesin 1,200 mg tablet, extended release 12 hr (Mucus Relief ER) 1,200 mg PO BID #20 tabs 12/10/22 [Rx Last Taken Unknown] metoprolol tartrate 100 mg tablet 100 mg PO BID #60 tabs 12/10/22 [Rx Last Taken Unknown] prednisone 10 mg tablet 10 mg PO DAILY STEROID #60 tabs 12/10/22 [Rx Last Taken Unknown] lorazepam 2 mg/mL oral concentrate (Lorazepam Intensol) 0.5 mg (0.25 mL) PO Q6H PRN anxiety #30 mL 12/12/22 [Rx Last Taken Unknown] morphine concentrate 10 mg/0.5 mL oral syringe (FOR ORAL USE ONLY) 5 mg (0.25 mL) PO Q4H PRN PRN Pain Score 6-10 5 days #20 ea 12/12/22 [Rx Last Taken Unknown] Allergy/AdvReac Type Severity Reaction Status Date / Time No Known Allergies Allergy Verified 12/05/22 14:42 Family History Mother Diabetes Father Lung cancer Surgical History S/P aneurysm repair Surgical History no surgical history Social History (Updated 12/11/22 @ 20:[address] Emily Cardozo MD) Smoking Status: Former smoker quit date: 10/20/16 pack-years: 43 second hand exposure: Yes alcohol intake: former substance use type: does not use ROS ROS Narrative 10 systems were reviewed with pertinent positives as noted in the HPI above. Physical Exam Const alert and no apparent distress General Appearance: cooperative, anxious and frail Nutritional Appearance: cachectic HEENT normocephalic, head/scalp atraumatic and moist oral mucous membranes Eyes PERRL, EOMs intact bilaterally and conjunctivae normal Neck supple General: trachea midline Chest Chest Narrative: Increased AP diameter Resp normal respiratory effort Effort and Inspection: prolonged expiratory phase Auscultation: wheezes and diminished lung sounds Cardio regular rate and regular rhythm GI normal to inspection, nondistended, normoactive bowel sounds Extremity no clubbing, cyanosis or edema Skin no rashes or lesions noted Neuro oriented x3, CN's II-XII intact bilaterally and moves all extremities Psych Mood & Affect: anxious Lab / Micro Data Result Diagrams: 12/12/22 03:25 12/12/22 03:25 Labs: Laboratory Results - last 24 hr 12/11/22 17:10: WBC 15.3 H, RBC 3.19 L, Hgb 9.8 L, Hct 33.7 L, MCV 105.6 H, MCH 30.7, MCHC 29.1 L D, RDW Std Deviation 54.3 H, RDW Coeff of Fe 14.0, Plt Count 346, MPV 9.9, Immature Gran % (Auto) 0.500, Neut % (Auto) 85.7 H, Lymph % (Auto) 6.2 L, [place] % (Auto) 7.5, Eos % (Auto) 0.0, Baso % (Auto) 0.1, Absolute Neuts (auto) 13.1 H, Absolute Lymphs (auto) 0.94, Nucleated RBC % 0 12/11/22 17:10: Sodium 146 H, Potassium 4.4, Chloride 107, Carbon Dioxide 35.0 H, Anion Gap 4 L, BUN 22 H, Creatinine 0.64 L, Estim Creat Clear Calc 63.80, Est GFR (MDRD) Af Amer 160, Est GFR (MDRD) Non-Af 132, BUN/Creatinine Ratio 34.4 H, Glucose 121 H, Calcium 9.7, Troponin I High Sens 71 12/11/22 17:10: B-Natriuretic Peptide 294.1 H 12/11/22 17:10: Phosphorus 3.7, Magnesium 2.4 12/11/22 19:53: Procalcitonin 0.11 H 12/11/22 20:55: MRSA (PCR) Negative 12/11/22 21:00: Troponin I High Sens 63 12/11/22 23:19: Troponin I High Sens 54 12/12/22 03:25: WBC 8.4, RBC 2.72 L, Hgb 8.3 L, Hct 27.9 L, MCV 102.6 H, MCH 30.5, MCHC 29.7 L, RDW Std Deviation 52.0 H, RDW Coeff of Fe 14.0, Plt Count 287, MPV 9.9, Immature Gran % (Auto) 0.400, Neut % (Auto) 91.3 H, Lymph % (Auto) 4.4 L, [place] % (Auto) 3.9, Eos % (Auto) 0.0, Baso % (Auto) 0.0, Absolute Neuts (auto) 7.7, Absolute Lymphs (auto) 0.37 L, Nucleated RBC % 0, Differential Comment SCANNED 12/12/22 03:25: Sodium 144, Potassium 4.9, Chloride 108 H, Carbon Dioxide 35.0 H, Anion Gap 1 L, BUN 23 H, Creatinine 0.57 L, Estim Creat Clear Calc 53.20, Est GFR (MDRD) Af Amer 181, Est GFR (MDRD) Non-Af 150, BUN/Creatinine Ratio 40.1 H, Glucose 114 H, Calcium 9.4, Total Bilirubin 0.60, AST 27, ALT 53, Alkaline Phosphatase 47, Total Protein 6.2 L, Albumin 2.7 L, Globulin 3.5, Albumin/Globulin Ratio 0.8 L Micro: Microbiology 12/11/22 20:15 Mucosa - Nasopharyngeal Respiratory Panel (PCR) - Final 12/11/22 19:53 Urine, Clean Catch Legionella Antigen - Final 12/11/22 19:53 Urine, Clean Catch Streptococcus pneumoniae Antigen (M - Final 12/11/22 17:26 Nasal Secretion SARS-CoV-2 & FLU Antigen (Rapid) - Final ABG Data ABG results: ABG 12/11/22 12/12/22 20:24 08:08 Specimen Type ART ART Sample Site R Radial L Radial pH 7.34 L 7.40 Bicarbonate Actual 33.7 H 37.9 H Total CO2 36 40 Base Excess 8 H 13 H O2 Saturation 95 96 O2 % 30 ABG pCO2 62.8 H 60.5 H ABG pO2 82 86 Marco Test Positive Positive O2 Delivery Device Cannula BiPAP Liter Flow 3.0 POC PEEP 8 Radiology Impression Chest X-Ray 12/11/22 17:55 IMPRESSION: Suspicious for left upper lobe neoplasm. No acute cardiopulmonary pathology Electronically Signed: George Ramirez MD at 18:10 EST , Charges/Coding Visit Charges Inpatient E&M: 63904 Init Hosp L3
--- NOTE | 2022-12-12 09:47 | DCINST_ITS ---
Discharge Instructions Diet Discharge Diet: No restrictions Dressing / Incision Call your doctor if you observe: Shortness of breath Follow Up Care Test Results: Test results from this visit will be discussed in further detail at your follow- up appointment, if applicable. Discharge Plan Admission Admit Date/Time: 12/11/22 19:32 Primary Reason for Your Visit: shortness of breath Attending Provider: Betito Carmen Primary Care Provider: Caroline Tejeda Consulting Providers: Luis Hernández ; Emily Cardozo ; Briseyda Allan Discharge Orders/Prescriptions Prescriptions: New morphine concentrate 10 mg/0.5 mL Syringe 5 mg PO Q4H PRN PRN (Reason: Pain Score 6-10) 5 Days Qty: 20 0RF lorazepam [Lorazepam Intensol] 2 mg/mL concentrate 0.5 mg PO Q6H PRN (Reason: anxiety) Qty: 30 0RF Continued tamsulosin [Flomax] 0.4 mg capsule 0.4 mg PO QHS (DME) Handicap Placard Qty: 1 0RF Rx Instructions: expires 11/25/2027 Combivent Respimat 20-100 mcg/actuation mist 1 puff INHALATION Q6H PRN (Reason: Shortness Of Breath) Rx Instructions: INHALE 1 PUFF BY MOUTH EVERY 6 HOURS NEEDED. MAX OF 6 PUFFS IN 24 HOURS azithromycin 250 mg tablet 250 mg PO MOWEFR Rx Instructions: 250 mg PO three times weekly, Fri while patient is taking Levaquin. albuterol sulfate 1.25 mg/3 mL solution for nebulization 1.25 mg inhalation Q4H roflumilast [Daliresp] 500 mcg tablet 500 mcg PO DAILY Spiriva Respimat 2.5 mcg/actuation mist 2 puff INHALATION QDAY Eliquis 5 mg tablet 5 mg PO BID fluticasone furoate-vilanterol [Breo Ellipta] 200-25 mcg/dose blister with device 1 inh inhalation DAILY ferrous sulfate [iron] 325 mg (65 mg iron) Tablet 325 mg PO DAILY Ensure Plus High Protein 0.08 gram-1.5 kcal/mL Liquid 120 ml PO 4X/DAY Qty: 60 0RF Mucus Relief ER 1,200 mg Tablet Extended Release 12hr 1,200 mg PO BID Qty: 20 0RF prednisone 10 mg tablet 10 mg PO DAILY Qty: 60 0RF Rx Instructions: 4 tabs daily for 3 days, then 3 tabs daily for 3 days, then 2 tabs daily for 3 days, then 1 tab daily metoprolol tartrate 100 mg Tablet 100 mg PO BID Qty: 60 0RF albuterol sulfate [ProAir HFA] 90 mcg/actuation HFA aerosol inhaler 2 puff inhalation Q6H PRN (Reason: shortness of breath or wheezing) Qty: 18 6RF Discontinued prednisone 50 mg tablet 50 mg PO DAILY Referrals / Follow Up: Luis Hernández DO [Med Staff - Active Staff] - Within 1 Month Tj Massey MD [Med Staff - Active Staff] - 12/12/22 1:00 pm Caroline Tejeda PA [Primary Care Provider] - Within 2 Weeks Disposition Disposition (needs filled in before D/C Order can be placed): Home, Self Care
--- NOTE | 2022-12-12 09:53 | DS.PCM_ITS ---
Providers Date of Admission: 12/11/22 Primary Care Physician: OFELIA Medina Consultations 12/11/22 20:35 Consult: [employer] Disp[employer]er / Pulmonary Medicine Routine Consulting Provider: Luis Hernández Reason for Consult: Resp failure, COPD exacerbation EMERGENT Consult: No MD Notified: Yes Date Notified: 12/11/22 Time Notified: 19:34 Method of Notification: Text Reason For Visit: RESP FAILURE ON CHRONIC, COPD EXACERBATION, Diagnosis Discharge Diagnosis (1) Chronic hypercapnic respiratory failure: Status: Chronic Code(s): J96.12 - Chronic respiratory failure with hypercapnia Plan: PCO2 was elevated on ABG but patient had a normal pH and was not hypoxic. Patient's PCO2 was elevated but I do not feel that he had an acute component of hypercapnic respiratory failure but most this is a component of anxiety on top of his advanced COPD. Patient has advanced COPD but this is also been complicated by anxiety as patient himself endorses that he does hyperventilate. Discussed with Dr. Hernández, plan is to continue with the prednisone taper as had previously been prescribed. But also to help with his anxiety we will have Roxanol to help with dyspnea as well as oral lorazepam liquid. Palliative care to follow-up with patient as outpatient. Patient had no documented hypoxia, therefore, hypoxic respiratory failure was ruled out. (2) Squamous cell lung cancer: Status: Acute Code(s): C34.90 - Malignant neoplasm of unspecified part of unspecified bronchus or lung Plan: Patient has been scheduled an appointment with oncology for this afternoon. Patient was to see them earlier today but would not be able to make that appointment. Further staging and treatment will be determined by oncology. Plan Chronic conditions: * Recent acute NSTEMI secondary to type II demand secondary to #1 complicated by #2: We will continue ASA, Eliquis, metoprolol, not on statin therapy nor AMANDA inhibitor/ARB. Most recent echocardiogram noted 10/28/2022 with normal LV size, LV systolic function normal, EF 60%. Given recent presentation will cycle cardiac enzymes to be cautious and will request mag level. * Chronic severe protein calorie malnutrition: Evidenced by significant muscle and fat loss, evaluated by nutrition recently with this diagnosis, will continue supplementations per their recommendation prior with repeat consultation requested to be cautious. * Chronic anemia, macrocytic per MCV, iron deficiency anemia: Admission hemoglobin 9.8, MCV 105.6, baseline prior noted primarily 8-9 although had been 10-11 in the past, will continue iron supplementation, continue to trend CBC. Vitamin B12 and folic acid levels requested. * History of brain aneurysm: Noted intervention in 1996, unclear specific type. * Hypertension: Continue home regimen including metoprolol, PRN hydralazine. * Former tobacco usage: Encourage continued tobacco cessation. * Former alcohol abuse: Encouraged continued sobriety. * BPH: We will continue patient home Flomax regimen. * PAF: We will continue patient home metoprolol and Eliquis regimen. Medications at Discharge Home Medications tamsulosin 0.4 mg capsule (Flomax) 0.4 mg PO QHS prostate 08/02/20 Handicap Placard #1 ea 11/25/22 albuterol sulfate 90 mcg/actuation aerosol inhaler (ProAir HFA) 2 puff inhalation Q6H PRN shortness of breath or wheezing #18 grams 11/28/22 albuterol sulfate 1.25 mg/3 mL solution for nebulization 1.25 mg inhalation Q4H SHORTNESS OF BREATH 12/05/22 apixaban 5 mg tablet (Eliquis) 5 mg PO BID BLOOD THINNER 12/05/22 azithromycin 250 mg tablet 250 mg PO MOWEFR ANTIBIOTIC 12/05/22 ferrous sulfate 325 mg (65 mg iron) tablet (iron) 325 mg PO DAILY SUPPLEMENT 12/05/22 fluticasone furoate 200 mcg-vilanterol 25 mcg/dose inhalation powder (Breo Ellipta) 1 inh inhalation DAILY COPD 12/05/22 ipratropium 20 mcg-albuterol 100 mcg/actuation mist for inhalation (Combivent Respimat) 1 puff inhalation Q6H PRN Shortness Of Breath 12/05/22 roflumilast 500 mcg tablet (Daliresp) 500 mcg PO DAILY COPD 12/05/22 tiotropium bromide 2.5 mcg/actuation mist for inhalation (Spiriva Respimat) 2 puff inhalation QDAY COPD 12/05/22 food supplemt, lactose-reduced 0.08 gram-1.5 kcal/mL oral liquid (Ensure Plus High Protein) 120 ml PO 4X/DAY #60 BOTTLES 12/10/22 guaifenesin 1,200 mg tablet, extended release 12 hr (Mucus Relief ER) 1,200 mg PO BID #20 tabs 12/10/22 metoprolol tartrate 100 mg tablet 100 mg PO BID #60 tabs 12/10/22 prednisone 10 mg tablet 10 mg PO DAILY STEROID #60 tabs 12/10/22 lorazepam 2 mg/mL oral concentrate (Lorazepam Intensol) 0.5 mg (0.25 mL) PO Q6H PRN anxiety #30 mL 12/12/22 morphine concentrate 10 mg/0.5 mL oral syringe (FOR ORAL USE ONLY) 5 mg (0.25 mL) PO Q4H PRN PRN Pain Score 6-10 5 days #20 ea 12/12/22 Hospital Course Operations None Procedures None Summary of Care Provided Minutes Spent on Discharge: 35 Hospital Course: Presents with dyspnea and shortness of breath. Patient was put on BiPAP because of his dyspnea. ABGs were unremarkable though his PCO2 is slightly elevated. As well as a large component of this was anxiety. Patient was endorsing that he was hyperventilating. Palliative care has been contacted and will follow-up patient is to help patient. No other new issues. This was addressed with the patient that there is component of anxiety and recommended palliative measures with Roxanol as well as Intensol. He is agreeable. Patient will be discharged today and will have follow-up appointment with oncology at 1300. Patient was thought that he was going to get worse while he was here but actually is stable and improved for discharge, therefore discharge sooner than initially anticipated. Weight / BMI Weight Weight: 52.3 kg Body Mass Index (BMI) 18.5 ABG / Lab / Microbiology Data Result Diagrams: 12/12/22 03:25 12/12/22 03:25 Laboratory: Laboratory Results - last 24 hr 12/11/22 17:10: WBC 15.3 H, RBC 3.19 L, Hgb 9.8 L, Hct 33.7 L, MCV 105.6 H, MCH 30.7, MCHC 29.1 L D, RDW Std Deviation 54.3 H, RDW Coeff of Fe 14.0, Plt Count 346, MPV 9.9, Immature Gran % (Auto) 0.500, Neut % (Auto) 85.7 H, Lymph % (Auto) 6.2 L, [place] % (Auto) 7.5, Eos % (Auto) 0.0, Baso % (Auto) 0.1, Absolute Neuts (auto) 13.1 H, Absolute Lymphs (auto) 0.94, Nucleated RBC % 0 12/11/22 17:10: Sodium 146 H, Potassium 4.4, Chloride 107, Carbon Dioxide 35.0 H , Anion Gap 4 L, BUN 22 H, Creatinine 0.64 L, Estim Creat Clear Calc 63.80, Est GFR (MDRD) Af Amer 160, Est GFR (MDRD) Non-Af 132, BUN/Creatinine Ratio 34.4 H, Glucose 121 H, Calcium 9.7, Troponin I High Sens 71 12/11/22 17:10: B-Natriuretic Peptide 294.1 H 12/11/22 17:10: Phosphorus 3.7, Magnesium 2.4 12/11/22 19:53: Procalcitonin 0.11 H 12/11/22 20:55: MRSA (PCR) Negative 12/11/22 21:00: Troponin I High Sens 63 12/11/22 23:19: Troponin I High Sens 54 12/12/22 03:25: WBC 8.4, RBC 2.72 L, Hgb 8.3 L, Hct 27.9 L, MCV 102.6 H, MCH 30.5, MCHC 29.7 L, RDW Std Deviation 52.0 H, RDW Coeff of Fe 14.0, Plt Count 287, MPV 9.9, Immature Gran % (Auto) 0.400, Neut % (Auto) 91.3 H, Lymph % (Auto) 4.4 L, [place] % (Auto) 3.9, Eos % (Auto) 0.0, Baso % (Auto) 0.0, Absolute Neuts (auto) 7.7, Absolute Lymphs (auto) 0.37 L, Nucleated RBC % 0, Differential Comment SCANNED 12/12/22 03:25: Sodium 144, Potassium 4.9, Chloride 108 H, Carbon Dioxide 35.0 H , Anion Gap 1 L, BUN 23 H, Creatinine 0.57 L, Estim Creat Clear Calc 53.20, Est GFR (MDRD) Af Amer 181, Est GFR (MDRD) Non-Af 150, BUN/Creatinine Ratio 40.1 H, Glucose 114 H, Calcium 9.4, Total Bilirubin 0.60, AST 27, ALT 53, Alkaline Phosphatase 47, Total Protein 6.2 L, Albumin 2.7 L, Globulin 3.5, Albumin/Globulin Ratio 0.8 L Microbiology: Microbiology 12/11/22 20:15 Mucosa - Nasopharyngeal Respiratory Panel (PCR) - Final 12/11/22 19:53 Urine, Clean Catch Legionella Antigen - Final 12/11/22 19:53 Urine, Clean Catch Streptococcus pneumoniae Antigen (M - Final 12/11/22 17:26 Nasal Secretion SARS-CoV-2 & FLU Antigen (Rapid) - Final ABG: ABG 12/11/22 12/12/22 20:24 08:08 Specimen Type ART ART Sample Site R Radial L Radial pH 7.34 L 7.40 Bicarbonate Actual 33.7 H 37.9 H Total CO2 36 40 Base Excess 8 H 13 H O2 Saturation 95 96 O2 % 30 ABG pCO2 62.8 H 60.5 H ABG pO2 82 86 Marco Test Positive Positive O2 Delivery Device Cannula BiPAP Liter Flow 3.0 POC PEEP 8 Radiography Diagnostic Testing: Radiology Impression Chest X-Ray 12/11/22 17:55 IMPRESSION: Suspicious for left upper lobe neoplasm. No acute cardiopulmonary pathology Electronically Signed: George Ramirez MD at 18:10 EST Reading Location ID and State: [address] [place] [address] , Service support , D/C Instructions Discharge Diet: No restrictions Call your doctor if you observe: Shortness of breath Meaningful Use Info Meaningful Use Diagnoses (Choose all that apply): None applicable Discharge Plan Admission Admit Date/Time: 12/11/22 19:32 Primary Reason for Your Visit: shortness of breath Attending Provider: Betito Carmen Primary Care Provider: Caroline Tejeda Consulting Providers: Luis Hernández ; Emily Cardozo ; Briseyda Allan Discharge Orders/Prescriptions Prescriptions: New morphine concentrate 10 mg/0.5 mL Syringe 5 mg PO Q4H PRN PRN (Reason: Pain Score 6-10) 5 Days Qty: 20 0RF lorazepam [Lorazepam Intensol] 2 mg/mL concentrate 0.5 mg PO Q6H PRN (Reason: anxiety) Qty: 30 0RF Continued tamsulosin [Flomax] 0.4 mg capsule 0.4 mg PO QHS (DME) Handicap Placard Qty: 1 0RF Rx Instructions: expires 11/25/2027 Combivent Respimat 20-100 mcg/actuation mist 1 puff INHALATION Q6H PRN (Reason: Shortness Of Breath) Rx Instructions: INHALE 1 PUFF BY MOUTH EVERY 6 HOURS NEEDED. MAX OF 6 PUFFS IN 24 HOURS azithromycin 250 mg tablet 250 mg PO Rx Instructions: 250 mg PO three times weekly, Fri while patient is taking Levaquin. albuterol sulfate 1.25 mg/3 mL solution for nebulization 1.25 mg inhalation Q4H roflumilast [Daliresp] 500 mcg tablet 500 mcg PO DAILY Spiriva Respimat 2.5 mcg/actuation mist 2 puff INHALATION QDAY Eliquis 5 mg tablet 5 mg PO BID fluticasone furoate-vilanterol [Breo Ellipta] 200-25 mcg/dose blister with device 1 inh inhalation DAILY ferrous sulfate [iron] 325 mg (65 mg iron) Tablet 325 mg PO DAILY Ensure Plus High Protein 0.08 gram-1.5 kcal/mL Liquid 120 ml PO 4X/DAY Qty: 60 0RF Mucus Relief ER 1,200 mg Tablet Extended Release 12hr 1,200 mg PO BID Qty: 20 0RF prednisone 10 mg tablet 10 mg PO DAILY Qty: 60 0RF Rx Instructions: 4 tabs daily for 3 days, then 3 tabs daily for 3 days, then 2 tabs daily for 3 days, then 1 tab daily metoprolol tartrate 100 mg Tablet 100 mg PO BID Qty: 60 0RF albuterol sulfate [ProAir HFA] 90 mcg/actuation HFA aerosol inhaler 2 puff inhalation Q6H PRN (Reason: shortness of breath or wheezing) Qty: 18 6RF Discontinued prednisone 50 mg tablet 50 mg PO DAILY Referrals / Follow Up: Luis Hernández DO [Med Staff - Active Staff] - Within 1 Month Tj Massey MD [Med Staff - Active Staff] - 12/12/22 1:00 pm Caroline Tejeda PA [Primary Care Provider] - Within 2 Weeks Disposition Disposition (needs filled in before D/C Order can be placed): Home, Self Care Charges/Coding Visit Charges Inpatient E&M: 56718 Disch Hosp >30min
[2022-12-12] MEDS: APIXABAN 5 MG TABLET PO (09:57)
[2022-12-12] MEDS: guaiFENesin 1,200 MG Tablet 1200 MG PO (09:57)
[2022-12-12] MEDS: 0.9% Saline Lock 10 ML Syringe IV (09:57)
[2022-12-12] MEDS: Metoprolol Tartrate 100 MG Tablet PO (09:57)
[2022-12-12] MEDS: Famotidine 20 MG Tablet PO (09:57)
[2022-12-12] MEDS: Ensure Plus High Protein 120 ML LIQUID PO (09:57)
--- NOTE | 2022-12-12 10:07 | CASEMGMT ---
KIRILL MARRUFO updated by dry cleaning attendant that patient will likely be discharged today and requested arrangement for patient to make it to oncologsit appointment today. Appointment for [facility] is at 1030, KIRILL MARRUFO called Dr. Massey's office and requested if appointment could be moved to this afternoon. [place] at Bryson's office switched appointment and now has appointment at 1300. KIRILL MARRUFO updated patient and permission given by patient to call [facility]. Patient is agreeable to palliative consult after talking with dry cleaning attendant, order for palliative consult and referral made to [facility]. KIRILL MARRUFO called [facility] and she is able to come to patient's room with oxygen tank at 1230 and follow patient to appointment with Dr. Massey. KIRILL MARRUFO updated dry cleaning attendant regarding appt with oncology and referral to palliative care. KIRILL MARRUFO updated patient, patient had no further questions or concerns.
[2022-12-12] MEDS: morphine (oral solution) 10MG/0.5ML Syringe 5 MG PO (12:48)
[2022-12-12 13:55] LABS: Platelet Count 301 K/mm3 (150-450); RET-HE 37.9 pg (30-35)
[2022-12-12 14:47] LABS: Ferritin 157 ng/mL (26-388); Iron 62 ug/dL (65-175); Iron Binding Capacity,Total 197 ug/dL (250-450); PERCENT IRON SATURATION 31.5 % (15.0-55.0)
== END 2022-12-12 12:45 | disposition home or self-care (01) | DRG 190 ==
LOC: ED 19:57 → ICU 20:19
PROVIDERS: Internal Medicine Hematology & Oncology; Admitting Provider Family Medicine; Emergency Provider Emergency Medicine; PCP Physician Assistant
DX: J44.1 Chronic obstructive pulmonary disease with (acute) exacerbation (principal); E43 Unspecified severe protein-calorie malnutrition; I21.A1 Myocardial infarction type 2; J96.12 Chronic respiratory failure with hypercapnia; C79.89 Secondary malignant neoplasm of other specified sites; C34.12 Malignant neoplasm of upper lobe, left bronchus or lung; J96.11 Chronic respiratory failure with hypoxia; Z68.1 Body mass index [BMI] 19.9 or less, adult; D63.0 Anemia in neoplastic disease; I48.0 Paroxysmal atrial fibrillation; I10 Essential (primary) hypertension; F41.9 Anxiety disorder, unspecified; N40.0 Benign prostatic hyperplasia without lower urinary tract symptoms; Z99.81 Dependence on supplemental oxygen; Z79.01 Long term (current) use of anticoagulants; Z79.82 Long term (current) use of aspirin; Z79.899 Other long term (current) drug therapy; Z86.79 Personal history of other diseases of the circulatory system; Z87.891 Personal history of nicotine dependence
CPT/HCPCS: 36600; 71045; 80048; 80053; 82728; 82803; 83540; 83550; 83735; 83880; 84100; 84145; 84484; 85025; 85045; 87428; 87449; 87633; 87641; 93005; 94002; 94003; 94640; 99285; A4216